=== PATIENT | female | born 1985 | race Caucasian/White ===

== ENCOUNTER → 2016-10-30 | Outpatient (CLI) | payer OTHER ==
[~2016-10-30] MED LIST: ACET-1138 PO; CALC-578 PO; CITA10TA8 PO; CLIN300C2 PO; CYAN100020 PO; DOCU100C PO; FERR1TAB13 PO
[2016-10-30 10:48] LABS: ALKALINE PHOSPHATASE 113 U/L (45-117); ALT/SGPT 43 U/L (12-78); AST/SGOT 22 U/L (15-37)
== END | disposition home or self-care (01) ==
LOC: C.LAB 09:49
PROVIDERS: ATTEND Surgery Plastic and Reconstructive Surgery
DX: K76.0 Fatty (change of) liver, not elsewhere classified (principal)

== ENCOUNTER 2016-11-11 18:37 | Emergency (ER) | payer OTHER ==
[~2016-11-11] VITALS: Ht 160 cm; Wt 75.7 kg
[~2016-11-11 18:37] MED LIST changes: -ACET-1138 PO; -CLIN300C2 PO; -DOCU100C PO
[2016-11-11 18:40] VITALS: TEMP 36.6; Ht 160 cm; Wt 75.7 kg
[2016-11-11] MEDS ORDERED: ACET-1138 PO (19:18)
[2016-11-11] MEDS ORDERED: CLIN300C2 PO (19:20)
[2016-11-11 19:27] LABS: MANUAL MICROSCOPIC REQUIRED? NO; REVIEW REQ? NO; URINE APPEARANCE CLEAR (CLEAR); URINE BILIRUBIN NEG (NEG); URINE COLOR YELLOW; URINE NITRITE NEG (NEG); URINE PH 6.5 (4.5-7.5); URINE SPECIFIC GRAVITY 1.005 (1.000-1.030); UROBILINOGEN NEG (NEG)
--- NOTE | 2016-11-11 19:31 | EMERGENCY ROOM VISIT NOTE ---
History Report prepared by Marline: Keith Munoz Under the Supervision of: Dr. Wyatt Hawk M.D. First contact with patient: 18:46 Chief Complaint: SWELLING TO EXTREMITY Stated Complaint: POST SURGERY SWELLING; CHECK FOR BLOOD CLOTS History of Present Illness The patient is a 31 year old female who presents to the Emergency Room with complaints of constant swelling to her legs starting earlier today. The patient states that she had skin removal surgery on her stomach on the , and four days ago she had her drainage tubes taken out, and it was still draining until today. The patient additionally states that she is having a headache, hand numbness, cold hands, nausea, and urinary frequency. The patient denies any use of control or history of blood clots, though she states that her uncle had blood clots. She additionally states that the odor from her incision has been persistent since the surgery. The patient states that she is currently on clindamycin, and she took some today. The patient denies any redness of her legs , and she states that she is currently wearing compression socks due to the swelling. She states that she has been on her feet a lot recently. Source of History: patient Onset: earlier today Position: leg (bilateral) Quality: other (swelling) Timing: constant Associated Symptoms: + headache, + urinary symptoms Note: Associated symptoms: hand numbness and cold hands Review of Systems See HPI for pertinent positives & negatives. A total of 10 systems reviewed and were otherwise negative. Past Medical & Surgical Medical Problems: (1) Acute urticaria (2) Acute urticaria (3) Anemia (4) Asthma (5) Breech presentation (6) Bronchitis (7) Corneal abrasion, right (8) Delivery by elective caesarean section (9) Pneumonia (10) term (11) Urinary tract infection Surgical Problems: (1) History of delivery (2) History of gastric bypass (3) S/P appendectomy (4) [place] teeth removed Family History FH: heart disease Hypertension Kidney disease Kidney stones Social History Smoking Status: Former Smoker Alcohol Use: occasionally Drug Use: none Marital Status: Housing Status: lives with family Occupation Status: employed Current/Historical Medications Scheduled Clindamycin Hcl (Cleocin), 300 MG PO UD Scheduled PRN Acetaminophen (Tylenol Extra Strength), 1,000-1,500 MG PO UD PRN for Pain Docusate Sodium (Stool Softener), 100 MG PO BID PRN for Constipation Allergies Coded Allergies: Azithromycin (Verified Allergy, Intermediate, itching, hives, 12/19/15) NSAIDs (Verified Allergy, Unknown, HAD GASTRIC BYPASS, 12/19/15) Penicillins (Unverified Allergy, Unknown, RASH , 12/19/15) Physical Exam Vital Signs Date Time Temp Pulse Resp B/P (MAP) Pulse Ox O2 Delivery O2 Flow Rate FiO2 11/11/16 20:56 72 16 112/58 100 Room Air 11/11/16 18:40 36.6 81 16 124/70 100 Room Air Physical Exam GENERAL: Patient is in no acute distress. HEENT: No acute trauma, normocephalic atraumatic, mucous membranes moist, no nasal congestion, no scleral icterus. NECK: No stridor, no adenopathy, no meningismus, trachea is midline. LUNGS: Clear to auscultation bilaterally, no wheeze, no rhonchi, breath sounds equal. HEART: Without murmurs gallops or rubs, regular rate and rhythm. ABDOMEN: Large C-shaped incision along the lower pelvis that extends across the entire pelvis. Mild erythema to the wound edges. No cellulitis. No drainage. Foul odor is noted. Soft, nontender, no peritonitis. EXTREMITIES: Moderate bilateral pedal edema. No cyanosis, full range of motion of all the joints without pain or difficulty, no signs for acute trauma. NEUROLOGIC: Oriented x 3, no acute motor or sensory deficits, no focal weakness. SKIN: No rash, no jaundice, no diaphoresis. Medical Decision & Procedures ER Provider Diagnostic Interpretation: Radiology results as stated below per my review and radiologist interpretation: BILATERAL LOWER EXTREMITY VENOUS DOPPLER HISTORY: Acute bilateral lower extremity pain and swelling swelling COMPARISON STUDY: Duplex venous ultrasound 11/01/2007. FINDINGS: There is normal compressibility, flow, and augmentation within the bilateral lower extremity deep venous systems. IMPRESSION: No sonographic evidence of deep venous thrombosis within the right or left lower extremity. Electronically signed by: John Murry M.D. 11/11/2016 8:28 PM Dictated Date/Time: 11/11/2016 8:27 PM Laboratory Results 11/11/16 19:40 Red Blood Count 3.52, Mean Corpuscular Volume 85.5, Mean Corpuscular Hemoglobin 26.1, Mean Corpuscular Hemoglobin Concent 30.6, Mean Platelet Volume 7.6, Neutrophils (%) (Auto) 62.4, Lymphocytes (%) (Auto) 25.5, Monocytes (%) (Auto) 6.2, Eosinophils (%) (Auto) 5.2, Basophils (%) (Auto) 0.3, Neutrophils # (Auto) 4.55, Lymphocytes # (Auto) 1.86, Monocytes # (Auto) 0.45, Eosinophils # (Auto) 0.38, Basophils # (Auto) 0.02 11/11/16 19:40 Test 11/11/16 19:15 11/11/16 19:40 Urine Color YELLOW Urine Appearance CLEAR (CLEAR) Urine pH 6.5 (4.5-7.5) Urine Specific [place] 1.005 (1.000-1.030) Urine Protein NEG (NEG) Urine Glucose (UA) NEG (NEG) Urine Ketones NEG (NEG) Urine Occult Blood NEG (NEG) Urine Nitrite NEG (NEG) Urine Bilirubin NEG (NEG) Urine Urobilinogen NEG (NEG) Urine Leukocyte Esterase TRACE (NEG) Urine WBC (Auto) 1-5 /hpf (0-5) Urine RBC (Auto) 0-4 /hpf (0-4) Urine Hyaline Casts (Auto) 0 /lpf (0-5) Urine Epithelial Cells (Auto) 5-10 /lpf (0-5) Urine Bacteria (Auto) NEG (NEG) White Blood Count 7.29 K/uL (4.8-10.8) Red Blood Count 3.52 M/uL (4.2-5.4) Hemoglobin 9.2 g/dL (12.0-16.0) Hematocrit 30.1 % (37-47) Mean Corpuscular Volume 85.5 fL (80-100) Mean Corpuscular Hemoglobin 26.1 pg (25-34) Mean Corpuscular Hemoglobin Concent 30.6 g/dl (32-36) Platelet Count 372 K/uL (130-400) Mean Platelet Volume 7.6 fL (7.4-10.4) Neutrophils (%) (Auto) 62.4 % Lymphocytes (%) (Auto) 25.5 % Monocytes (%) (Auto) 6.2 % Eosinophils (%) (Auto) 5.2 % Basophils (%) (Auto) 0.3 % Neutrophils # (Auto) 4.55 K/uL (1.4-6.5) Lymphocytes # (Auto) 1.86 K/uL (1.2-3.4) Monocytes # (Auto) 0.45 K/uL (0.11-0.59) Eosinophils # (Auto) 0.38 K/uL (0-0.5) Basophils # (Auto) 0.02 K/uL (0-0.2) RDW Standard Deviation 58.0 fL (36.4-46.3) RDW Coefficient of Variation 18.6 % (11.5-14.5) Immature Granulocyte % (Auto) 0.4 % Immature Granulocyte # (Auto) 0.03 K/uL (0.00-0.02) Red Blood Cell Morphology Unremarkable Anion Gap 6.0 mmol/L (3-11) Est Creatinine Clear Calc Drug Dose 98.6 ml/min Estimated GFR () 112.1 Estimated GFR (Non- 96.7 BUN/Creatinine Ratio 16.5 (10-20) Lactic Acid Level 0.8 mmol/L (0.4-2.0) Calcium Level 8.6 mg/dl (8.5-10.1) Magnesium Level 2.4 mg/dl (1.8-2.4) Total Bilirubin 0.2 mg/dl (0.2-1) Aspartate Amino Transf (AST/SGOT) 30 U/L (15-37) Alanine Aminotransferase (ALT/SGPT) 45 U/L (12-78) Alkaline Phosphatase 138 U/L (45-117) Total Protein 6.5 gm/dl (6.4-8.2) Albumin 3.2 gm/dl (3.4-5.0) Globulin 3.3 gm/dl (2.5-4.0) Albumin/Globulin Ratio 1.0 (0.9-2) Thyroid Stimulating Hormone (TSH) 2.460 uIu/ml (0.300-4.500) Laboratory results reviewed by me. ED Course 1845: The patient was evaluated in room C12. A complete history and physical exam was performed. 2057: Reevaluated the patient. Discussed results and discharge instructions: She verbalized understanding and agreement. The patient is ready for discharge. Medical Decision Differential Diagnoses include: edema, wound infection, UTI, renal failure, electrolyte imbalance, DVT, venous insufficiency, anemia, and thyroid disorder. There is no leukocytosis. The patient is anemic but this is baseline looking back at previous values, the hemoglobin is actually improved today. No significant electrolyte abnormality, kidney failure or hepatitis. The patient appears to be in a euthyroid state. Lactic acid level is not elevated making severe sepsis or severe infection less likely. Urinalysis does not show infection. Bilateral lower extremity ultrasound does not show evidence for DVT. The patient presents with some extremity numbness and tingling, she has lower extremity edema. She is recovering from an abdominal surgery where she had a large area of extra skin removed. She has seen her plastic surgeon recently and they were happy with the wound. Her drains were recently removed. She has had an odor to the incision since the operation, she states that her surgical group was not concerned about the smell. On exam, the wound does not appear to be infected. There is no cellulitis, no significant drainage. The patient looks well, she is not toxic or febrile. The lower extremity edema is likely from the recent surgery, some venous insufficiency, the fact that she's been less active lately. She was reassured. She is being discharged with follow-up through her surgical group. Medication Reconcilliation Current Medication List: was personally reviewed by me Blood Pressure Screening Patient's blood pressure: Normal blood pressure Impression Primary Impression: Pedal edema Additional Impression: healing abdominal surgical incision Scribe Attestation The scribe's documentation has been prepared under my direction and personally reviewed by me in its entirety. I confirm that the note above accurately reflects all work, treatment, procedures, and medical decision making performed by me. Departure Information Dispostion Home / Self-Care Referrals No Doctor, Assigned (PCP) Forms HOME CARE DOCUMENTATION FORM, IMPORTANT VISIT INFORMATION Patient Instructions My [facility] Additional Instructions try and keep the legs elevated wear the stockings to help the swelling talk with your surgeon tomorrow return if worsening lab testing today was ok no clots by ultrasound today Problem Qualifiers
[2016-11-11 19:58] LABS: HEMATOCRIT 30.1 % (37-47); MEAN CELL VOLUME 85.5 fL (80-100); MEAN CORPUSCULAR HEMOGLOBIN 26.1 pg (25-34); MEAN CORPUSCULAR HGB CONC 30.6 g/dl (32-36); MEAN PLATELET VOLUME 7.6 fL (7.4-10.4); PLATELET COUNT 372 K/uL (130-400); RED BLOOD COUNT 3.52 M/uL (4.2-5.4); WHITE BLOOD COUNT 7.29 K/uL (4.8-10.8)
[2016-11-11 20:15] LABS: BUN/CREATININE RATIO 16.5 (10-20); CALCIUM 8.6 mg/dl (8.5-10.1); CREATININE 0.82 mg/dl (0.60-1.20); MAGNESIUM 2.4 mg/dl (1.8-2.4)
[2016-11-11 20:26] LABS: THYROID STIMULATING HORMONE 2.46 uIu/ml (0.300-4.500)
[2016-11-11 20:27] LABS: BASO % 0.3 %; BASO ABS # 0.02 K/uL (0-0.2); COMPLETE YES; EOS % 5.2 %; IG% 0.4 %; LYMPH % 25.5 %; LYMPH ABS # 1.86 K/uL (1.2-3.4); MONO % 6.2 %; NEUT % 62.4 %
--- NOTE | 2016-11-11 20:30 | DIAGNOSTIC IMAGING REPORT ---
BILATERAL LOWER EXTREMITY VENOUS DOPPLER HISTORY: Acute bilateral lower extremity pain and swelling swelling COMPARISON STUDY: Duplex venous ultrasound 11/01/2007. FINDINGS: There is normal compressibility, flow, and augmentation within the bilateral lower extremity deep venous systems. IMPRESSION: No sonographic evidence of deep venous thrombosis within the right or left lower extremity. Electronically signed by: John Murry M.D. 11/11/2016 8:28 PM Dictated Date/Time: 11/11/2016 8:27 PM
[2016-11-11 20:56] VITALS: BP 112/58; PULSE 72; O2SAT 100
[2016-11-11] MEDS ORDERED: DOCU100C PO (23:45)
== END 2016-11-11 21:19 | disposition home or self-care (01) ==
LOC: C.EDB 18:39 → C.EDC 21:19
DX: R60.9 Edema, unspecified (principal); Z98.890 Other specified postprocedural states; D64.9 Anemia, unspecified; J45.909 Unspecified asthma, uncomplicated; Z87.440 Personal history of urinary (tract) infections; Z98.84 Bariatric surgery status; Z87.891 Personal history of nicotine dependence; Z88.0 Allergy status to penicillin; Z88.3 Allergy status to other anti-infective agents; Z88.8 Allergy status to other drugs, medicaments and biological substances; Z82.49 Family history of ischemic heart disease and other diseases of the circulatory system; Z84.1 Family history of disorders of kidney and ureter

== ENCOUNTER → 2016-12-20 | Outpatient (CLI) | payer OTHER ==
[~2016-12-20] MED LIST changes: +ACET-1138 PO; -CALC-578 PO; -CITA10TA8 PO; +CLIN300C2 PO; -CYAN100020 PO; +DOCU100C PO; -FERR1TAB13 PO
[2016-12-20 13:08] LABS: BASO % 0.2 %; BASO ABS # 0.01 K/uL (0-0.2); COMPLETE YES; EOS % 2.5 %; IG% 0.2 %; LYMPH % 30.3 %; LYMPH ABS # 1.56 K/uL (1.2-3.4); MEAN CELL VOLUME 76.7 fL (80-100); MEAN CORPUSCULAR HGB CONC 31.3 g/dl (32-36); MEAN PLATELET VOLUME 8.3 fL (7.4-10.4); MONO % 9.1 %; NEUT % 57.7 %; PLATELET COUNT 260 K/uL (130-400); RED BLOOD COUNT 4.17 M/uL (4.2-5.4); WHITE BLOOD COUNT 5.15 K/uL (4.8-10.8)
[2016-12-20 13:41] LABS: FERRITIN 4.8 ng/ml (8.0-388.0)
== END | disposition home or self-care (01) ==
LOC: C.LAB 12:26
PROVIDERS: ATTEND Internal Medicine Hematology
DX: D50.0 Iron deficiency anemia secondary to blood loss (chronic) (principal)

== ENCOUNTER 2017-01-18 18:15 | Emergency (ER) | payer OTHER ==
[~2017-01-18] VITALS: Ht 160 cm; Wt 72.0 kg
[2017-01-18 18:19] VITALS: TEMP 36.9; Ht 160 cm; Wt 72.0 kg
[2017-01-18] MEDS ORDERED: MULT-506 PO (18:28)
[2017-01-18] MEDS ORDERED: FERR1TAB13 PO (18:28)
--- NOTE | 2017-01-18 18:46 | EMERGENCY ROOM VISIT NOTE ---
History Report prepared by Marline: Gordo Dixon Under the Supervision of: Dr. Ede Clarke M.D. First contact with patient: 18:32 Chief Complaint: ED VAG BLEEDING Stated Complaint: ANEMIA,HEAVY MENSTRUAL BLEEDING,PREV ABLASION,DIZZ History of Present Illness The patient is a 31 year old female who presents to the Emergency Room with complaints of intermittent vaginal bleeding that started a month ago. The patient states that she has been changing her super plus tampon and pad every hour. She reports that she had an ablation done about a month ago for her vaginal bleeding, but admits that she is still clotting. The patient admits that she has a history of anemia, which she has an IV of iron for. She states that she had four treatments last week with her last iron count at 4 g. The patient states she has still been experiencing her symptoms. The patient states that she knows her iron is low because she has been experiencing general weakness, leg and arm pain, lightheadedness, nausea, and a headache behind her eyes. She admits that she has been experiencing abnormal bleeding since she was a teenager. The patient admits that she had skin removal surgery on her abdomen a month ago due to her gastric bypass surgery 2 years ago at [facility]. She states that her HARP REGULATOR is Dr. Palma of [facility]. She denies control or estrogens. Source of History: patient Onset: a month ago Position: other (vaginal) Quality: other (bleeding) Timing: intermittent Associated Symptoms: + headache, + nausea, + weakness Review of Systems All systems have been listed, reviewed, and are negative other than those previously mentioned. Please see Additional Medical History Sheet. Past Medical & Surgical Medical Problems: (1) Acute urticaria (2) Acute urticaria (3) Anemia (4) Asthma (5) Breech presentation (6) Bronchitis (7) Corneal abrasion, right (8) Delivery by elective caesarean section (9) Pneumonia (10) term (11) Urinary tract infection Surgical Problems: (1) History of delivery (2) History of gastric bypass (3) S/P appendectomy (4) [place] teeth removed Family History FH: heart disease Hypertension Kidney disease Kidney stones Social History Smoking Status: Current Every Day Smoker Alcohol Use: occasionally Drug Use: none Marital Status: Housing Status: lives with family Occupation Status: employed Current/Historical Medications Scheduled Ferrous Sulfate (Kp Ferrous Sulfate), 325 MG PO BID Multivitamin (Multivitamin), 1 TAB PO DAILY Allergies Coded Allergies: Azithromycin (Verified Allergy, Intermediate, itching, hives, 01/18/17) NSAIDs (Verified Allergy, Unknown, HAD GASTRIC BYPASS, 01/18/17) Penicillins (Unverified Allergy, Unknown, RASH , 01/18/17) Physical Exam Vital Signs Date Time Temp Pulse Resp B/P (MAP) Pulse Ox O2 Delivery O2 Flow Rate FiO2 01/18/17 20:05 77 16 121/76 98 01/18/17 19:31 77 16 121/76 98 Room Air 01/18/17 19:29 78 16 119/58 98 Room Air 85 125/71 77 121/76 01/18/17 18:19 36.9 97 18 138/80 100 Room Air Physical Exam GENERAL: Patient awake, alert, oriented x 3. Patient follows commands. Patient does not appear toxic. Patient is adequately hydrated and well- nourished. SKIN: No erythema, pallor, cyanosis or rash. Healing scars in both inguinal areas from a recent skin excisions. HEENT: Normal head, pupils equal, reactive to light and accommodation. LUNGS: Clear to auscultation. No wheezes, no rales, no rhonchi. HEART: No murmurs. No gallops. No rubs ABDOMEN: No masses, no rebound, no hepatomegaly or splenomegaly. EXTREMITIES: No signs of trauma. No pedal or pretibial edema. No calf or thigh tenderness. NEUROLOGIC: Cranial nerves II-XII within normal limits. No gross motor sensory function deficits. just head and eyes. Medical Decision & Procedures Laboratory Results 01/18/17 18:48 01/18/17 18:48 Test 01/18/17 18:48 Red Blood Count 4.63 M/uL (4.2-5.4) Mean Corpuscular Volume 82.1 fL (80-100) Mean Corpuscular Hemoglobin 25.7 pg (25-34) Mean Corpuscular Hemoglobin Concent 31.3 g/dl (32-36) RDW Standard Deviation 59.1 fL (36.4-46.3) RDW Coefficient of Variation 19.7 % (11.5-14.5) Mean Platelet Volume 8.4 fL (7.4-10.4) Anion Gap 6.0 mmol/L (3-11) Est Creatinine Clear Calc Drug Dose 87.7 ml/min Estimated GFR () 100.1 Estimated GFR (Non- 86.4 BUN/Creatinine Ratio 15.5 (10-20) Calcium Level 8.7 mg/dl (8.5-10.1) Laboratory results as stated above per my review. ED Course 183: Past medical records reviewed. The patient was evaluated in room A12B. A complete history and physical examination was performed. 194: Upon reevaluation, the patient is resting comfortably. I discussed today' s findings with the patient. She verbalized agreement of the treatment plan. The patient was discharged home. Medical Decision Nurses notes reviewed. Medical history sheet reviewed. Differential diagnosis includes but is not limited to: anemia, recurrent vaginal bleeding, and iron deficiency. 31-year-old female with excessive vaginal bleeding post-ablation now returns feeling somewhat lightheaded. The patient believes that she is more anemic. The patient is post-gastric bypass. She is followed by gynecology. The patient also complains occasionally of night sweats. She has no cough. She has no fever or chills. Labs were evaluated. The patient's hemoglobin is now 11.9 which is much higher than it has been. She is not orthostatic. The patient does not appear ill. I did not perform another pelvic exam as this will need to be repeated by gynecology. She is currently not bleeding. I believe the patient is safe to return home but she will need to follow back with gynecology and her family physician. Medication Reconcilliation Current Medication List: was personally reviewed by me Blood Pressure Screening Patient's blood pressure: Normal blood pressure Impression Primary Impression: Menometrorrhagia Additional Impression: Anemia Scribe Attestation The scribe's documentation has been prepared under my direction and personally reviewed by me in its entirety. I confirm that the note above accurately reflects all work, treatment, procedures, and medical decision making performed by me. Departure Information Dispostion Home / Self-Care Referrals Ladonna Barone PA-C (PCP) Forms HOME CARE DOCUMENTATION FORM, IMPORTANT VISIT INFORMATION, WORK / SCHOOL INSTRUCTIONS Patient Instructions My [facility] Additional Instructions Follow-up with your microfabrication engineer manager and family physician within the next 7 days. Drink extra fluids. Problem Qualifiers
[2017-01-18 18:56] LABS: MEAN CELL VOLUME 82.1 fL (80-100); MEAN CORPUSCULAR HEMOGLOBIN 25.7 pg (25-34); MEAN CORPUSCULAR HGB CONC 31.3 g/dl (32-36); MEAN PLATELET VOLUME 8.4 fL (7.4-10.4); PLATELET COUNT 264 K/uL (130-400); RED BLOOD COUNT 4.63 M/uL (4.2-5.4); WHITE BLOOD COUNT 5.54 K/uL (4.8-10.8)
[2017-01-18 19:18] LABS: BUN/CREATININE RATIO 15.5 (10-20); CALCIUM 8.7 mg/dl (8.5-10.1); CREATININE 0.9 mg/dl (0.60-1.20); POTASSIUM 3.8 mmol/L (3.5-5.1)
[2017-01-18 20:05] VITALS: BP 121/76; PULSE 77; O2SAT 98
== END 2017-01-18 20:05 | disposition home or self-care (01) ==
LOC: C.EDB 18:16 → C.EDA 20:05
DX: N92.1 Excessive and frequent menstruation with irregular cycle (principal); D50.9 Iron deficiency anemia, unspecified; Z98.890 Other specified postprocedural states; J45.909 Unspecified asthma, uncomplicated; F17.200 Nicotine dependence, unspecified, uncomplicated; Z82.49 Family history of ischemic heart disease and other diseases of the circulatory system; Z84.1 Family history of disorders of kidney and ureter

== ENCOUNTER 2019-10-25 07:48 | Observation (INO) ==
--- NOTE | 2019-09-27 09:59 | PAT Medication Instructions ---
Medication Instructions Date of Service September 27, 2019 Home Medications fluvoxamine 25 mg PO QAM risperidone [Risperdal] 1 mg PO BID PRN Take morning of surgery With a small sip of water, OTHERWISE NOTHING TO EAT OR DRINK AFTER MIDNIGHT: fluvoxamine 25 mg PO QAM risperidone [Risperdal] 1 mg PO BID PRN (if needed) Take evening before surgery risperidone [Risperdal] 1 mg PO BID PRN (if needed) Other Notes If you have any questions please call us at [phone] or [phone] or [phone] or [phone]
--- NOTE | 2019-09-27 10:09 | Anesthesiology Consultation ---
Date of Service September 27, 2019 Assessment & Plan (1) Encounter for pre-operative examination: Chart Review Chart Review: Acceptable Risk for Surgery (pending preop Covid testing) and Patient seen in Pre Admission Testing - Check test AM DOS Per PAT appt on 09/27/19, no recent travel. Resides in [facility]. Uses PPE. Educated patient to follow up with surgeon's office regarding Covid testing. Educated on importance of self quarantining, social distancing and wearing mask in public both for the patient and household contacts. Teaching & Discussion Pre-Anesthesia Teaching/Discussion Notes: Instructed NPO after midnight before surgery,except medications with 15 cc of water. Medication instructions provided according to the PAT guidelines. History Surgery Operation Date: 10/25/19 07:30 Proposed Procedures p Robotic Total Laparoscopic Hysterectomy - Misty Fields MD, FACOG Height/Weight Height: 5 ft 3 in Weight: 91.9 kg Allergies Allergy/AdvReac Type Severity Reaction Status Date / Time azithromycin Allergy Intermediate Hives Verified 09/27/19 08:41 [place] NSAIDS (Non-Steroidal Allergy Unknown HAD Verified 09/27/19 08:41 Anti-Inflamma GASTRIC BYPASS Penicillins Allergy Unknown RASH Unverified 09/27/19 08:41 Medications Home Medications Medication Instructions Recorded Confirmed Last Taken fluvoxamine 25 mg PO QAM 09/27/19 09/27/19 Unknown risperidone [Risperdal] 1 mg PO BID PRN 09/27/19 09/27/19 Unknown Past Medical History Medical History (Updated 09/27/19 @ 10:04 by Piper Whaley PA-C) Anemia iron transfusion weekly - follows with heme with routinely Asthma mild GERD (gastroesophageal reflux disease) Well controlled and stable Exercise / Class Metabolic Activity II 4-5 Yardwork/Stairs/Walk up hill (one flight of stairs - no chest pain or SOB) Past Surgical History Surgical History (Updated 09/27/19 @ 10:22 by Piper Whaley PA-C) History of abdominoplasty History of delivery History of gastric bypass Hx of colonoscopy pre cancer polyp and screen every 3 years S/P appendectomy [place] teeth removed Past Anesthesia History No Hx of Anesthesia Complications (with exception to one episode of slow to wake after gastric bypass- just groggy - no reintubation or ICU ) and No Family Hx of Anesthesia Complications (brother has mild issues - unsure of specifics but no life threatening/serious issues ) History of PONV No Hx of Motion Sickness and History of PONV (one episode of vomiting post op Day 1 from gastric bypass- otherwise no issues ) Social History Smoking Status: Current every day smoker tobacco type: cigarettes Smoking cigarettes per day: 3 cig day Do You Dip or Chew Tobacco: No Hx Alcohol Use: Yes alcohol intake frequency: holidays/special occasions only Hx Substance Use: No substance use type: does not use Review of Systems Occ snoring- no hx of sleep study. Patient denies chest pain, shortness of breath, dyspnea on exertion, cough, wheezing, palpitations. No hx of seizures, stroke, [place]. No hx of blood clots. Physical Exam Vital Signs VITALS BP 127/90 P 74 TEMP 97.5 SP02 100% RESP 16 Constitutional no acute distress ENMT Mouth: no TMJ clicking Thyromental Distance: > or= 3.5 Finger Breadths (3.5) Mallampati Class: II No missing teeth. No caps or crowns. Neck neck extension not limited Respiratory normal respiratory effort; no respiratory distress Auscultation: lungs clear to auscultation bilaterally; no wheezes Cardiovascular Rate/Rhythm: regular rate and regular rhythm Heart Sounds: no murmur Vessels: no carotid bruit Musculoskeletal Spine: no pain with cervical ROM Neurologic moves all extremities Psychiatric Orientation: alert Testing Laboratory Results 09/27/19 10:20 09/27/19 10:20 Blood Type O Positive 09/27/19 10:20 Antibody Screen NEGATIVE 09/27/19 10:20 Anemia stable from 09/08/19 (Hgb 9.3 and Hct 30.7 at that time)
[2019-09-27 11:19] LABS: Basophils # (auto) 0.02 K/uL (0-0.2); Basophils % (auto) 0.3 %; Eosinophils # (auto) 0.18 K/uL (0-0.5); Eosinophils % (auto) 2.7 %; Hemoglobin 9.7 g/dL (12.0-16.0); Immature Granulocytes # (auto) 0.02 K/uL (0.00-0.02); Immature Granulocytes % (auto) 0.3 %; Lymphocytes # (auto) 1.34 K/uL (1.2-3.4); Lymphocytes % (auto) 19.8 %; Mean Corpuscular Hemoglobin 21.7 pg (25-34); Mean Corpuscular Hgb Conc 29.4 g/dL (32-36); Mean Platelet Volume 8.5 fL (7.4-10.4); Monocytes # (auto) 0.56 K/uL (0.11-0.59); Monocytes % (auto) 8.3 %; Neutrophils # (auto) 4.64 K/uL (1.4-6.5); Neutrophils % (auto) 68.6 %; Platelet Count 319 K/uL (130-400); RDW Coefficient of Variation 19.4 % (11.5-14.5); RDW Standard Deviation 49.9 fL (36.4-46.3); Red Blood Count 4.46 M/uL (4.2-5.4); White Blood Count 6.76 K/uL (4.8-10.8)
[2019-09-27 11:25] LABS: BUN Creatinine Ratio 13.9 (10-20); Calcium 8.4 mg/dl (8.5-10.1); Creatinine Clr Calc Pharmacy 119.1 ml/min; Est GFR (African American) 126.3; Potassium 4.4 mmol/L (3.5-5.1)
[2019-09-27 11:41] LABS: Hypochromasia Present; Microcytosis Present
[~2019-10-25 07:48] MED LIST changes: -ACET-1138 PO; +CEFAZOLIN 2000MG 2,000 MG/15 ML SYR IV SCH; -CLIN300C2 PO; -DOCU100C PO; +LACTATED RINGER'S 1,000 ML IV SCH; +LR 15ML/HR IV SCH
[2019-10-25] MEDS ORDERED: fentaNYL citrate 100 MCG/2 ML VIAL ONE ×3 (08:48→11:43)
[2019-10-25] MEDS ORDERED: NEOSTIGMINE METHYLSULFATE 5 MG/5 ML SYR ONE (08:48)
[2019-10-25] MEDS ORDERED: MIDAZOLAM HCL 1 MG/ML 2ML VIAL ONE (08:48)
[2019-10-25] MEDS ORDERED: PROPOFOL IV EMULSION 10 MG/ML 20 ML VIAL IV ONE (08:48)
[2019-10-25] MEDS ORDERED: DEXAMETHASONE SOD INJ 4 MG/ML VIAL ONE (08:48)
[2019-10-25] MEDS ORDERED: GLYCOPYRROLATE 0.2 MG/ML VIAL ONE (08:48)
[2019-10-25] MEDS ORDERED: ONDANSETRON INJ 2 MG/ML 2 ML VIAL ONE (08:48)
[2019-10-25] MEDS ORDERED: LIDOCAINE HCL 2% 2 ML VIAL/AMP(20MG/ML) INFIL ONE (08:48)
[2019-10-25 08:54] LABS: Pregnancy Test, Serum Negative (Negative)
--- NOTE | 2019-10-25 09:14 | History & Physical Bridge Note ---
Date of Service October 25, 2019 History & Physical Bridge Note I have examined the patient, reviewed the History & Physical and in the interval since the performance of the History & Physical I have noted the following changes of clinical significance: no changes noted
[2019-10-25] MEDS ORDERED: PROMETHAZINE HCL 12.5 MG in SODIUM CHLORIDE 0.9% 50 ML IV PRN ×2 (09:36→13:13)
[2019-10-25] MEDS ORDERED: fentaNYL citrate 100 MCG/2 ML VIAL IV PRN (09:36)
[2019-10-25] MEDS ORDERED: ATROPINE SULFATE 0.1 MG/ML 10ML SYR IV PRN (09:36)
[2019-10-25] MEDS ORDERED: NALOXONE HCL 0.4 MG/1 ML VIAL/CARP IV PRN (09:36)
[2019-10-25] MEDS ORDERED: FLUMAZENIL 0.1 MG/1 ML 10 ML VIAL IV PRN (09:36)
[2019-10-25] MEDS ORDERED: ONDANSETRON INJ 2 MG/ML 2 ML VIAL IV PRN ×2 (09:36→13:13)
[2019-10-25] MEDS ORDERED: ePHEDrine sulfate 50 MG/ML AMP IV PRN (09:36)
[2019-10-25] MEDS ORDERED: LABETALOL HCL IV 5 MG/ML 20ML IV PRN (09:36)
[2019-10-25] MEDS ORDERED: BUPIVACAINE 0.5 % 5 MG/1 ML MPF 30ML VIAL ONE (09:46)
[2019-10-25] MEDS ORDERED: METHYLENE BLUE 0.5% 10 ML VIAL ONE (09:46)
[2019-10-25] MEDS ORDERED: ROCURONIUM BROMIDE 10 MG/ML 5 ML VIAL IV ONE (10:49)
[2019-10-25] MEDS ORDERED: TISSEEL FIBRIN SEALANT 4ML TOP ONE (11:49)
--- NOTE | 2019-10-25 12:02 | Operative Report ---
PG Post Operative Report Pre & Post Diagnosis Operation Date: 10/25/19 09:50 Pre-Op Diagnosis: Menorrhagia, Anemia Post-Op Diagnosis: Menorrhagia, Anemia I identified the patient and participated in the time-out.: Yes Procedure Operation Date: 10/25/19 09:50 Actual Procedures p Robotic Assisted Total Laparoscopic Hysterectomy Bilateral Salpingectomy and Cystoscopy(Not Applicable) - Misty Fields MD, FACOG Surgeon Misty Fields MD, FACOG Trailer Technician . Estimated Blood Loss 10 Findings Consistent with Post-Op Diagnosis Specimens uterus, tubes, cx Description of Procedure Patient was given a general anesthetic, prepped and draped in dorsal lithotomy position in yellow fin arabella stirrups. Care was taken to position the legs and arms properly with no excess pressure on any area. Pre-operative antibiotics were given and SCDs applied earlier. Umrdock catheter was inserted into her bladder, V-Care manipluator was placed in the uterus and sutured in place. Gloves were changed and then a supra-umbilical incision was made with scalpel, using Cathie technique, we dissected through the subcutaneous fat, fascia, split the rectus muscles and then entered the peritoneal cavity.. Blunt tip Cathie Trochar then inserted and balloon inflated to stabilize the port. CO2 gas was then used to insufflate the peritoneal cavity. Findings.Minimal adhesive disease From the anterior abdomen to omentum previous section some minimal adhesive disease between the bladder and cervix Deep tendelenberg position was obtained. 2 robotic ports were then placed, one on the left, one on the right side under direct visualization. 11mm bladeless accessory port placed in left upper quadrant under direct visualization. Robot docked. Arm #1 Monopolar martha, arm #2 Bipolar [place] grasper. Fallopian tubes were identified and removed with the monoplar martha and removed thru the accessory port. Ureter was identified on each side and followed a normal course. Distal to the left ovary, the blood supply was coagulated with the bipolar [place] and then cut with Martha. We were well away from the ureter. Round ligament was coagulated and then cut. Uterine vessels were then skeletonized, bladder flap was sharply dissected away with martha. Uterine vessels were then coagulated close to the cervix staying away from the left ureter. Vessels then cut. The exact same process was repeated on the right side taking note of the location of the right ureter at all times. Colpotomy was then performed with the monopolar martha, once completed, the specimen was removed through the vagina. A sponge in a glove was then placed in the vagina to maintain pneumoperitoneum. Instrument exchange then occurred. Arm #1 became the LUIZ needle construction driver, Arm # 2 became the Cobra Grasper. 12 inch 2-0 V-Lock 90 day suture was placed through the accessory port. Cuff was closed from left to right, then back taking at least 1cm full thickness bites of vaginal mucosa. Suture was cut so there was no tail, needle removed through the accessory port. Sponge removed from the vagina and seal air tight. Generous irrigation and suction, hemostasis excellent, Tisseal applied to pedicles. Cystoscopy performed and no injury to the bladder, no sutures noted, good strong jets of urine were noted from both right and left ureter openings. Cystoscope removed and a new murdock catheter placed. Robot undocked, instruments, ports removed. gas allowed to escape. Incisions injected with Marcaine, fascia closed in the umbilical and a deep stitch into the accessory port with 0-Vicryl. 4-0 subcuticular skin closures on all incisions, dermabond apllied. Sponge and instrument counts correct. I attest to the content of the Intraoperative Record and any orders documented therein. Any exceptions are noted below.
[2019-10-25] MEDS ORDERED: MEPERIDINE HCL 25 MG/ML CARP/VIAL IV PRN (12:07)
[2019-10-25] MEDS ORDERED: MEPERIDINE HCL 25 MG/ML CARP/VIAL ONE (12:10)
--- NOTE | 2019-10-25 12:38 | Anesthesiology Progress Note ---
Date of Service October 25, 2019 Anesthesia Post Procedure Vital Signs Vital Signs: Temp Pulse Pulse Resp BP Pulse Ox 10/25/19 12:35 71 14 126/65 100 10/25/19 12:25 68 16 127/66 100 10/25/19 12:15 73 12 132/72 100 10/25/19 12:07 36.8 C 80 19 130/63 100 10/25/19 08:34 36.8 C 71 16 107/64 100 Pain Intensity Abdomen: Pain Intensity: 0 Transfer of Care Handoff Completed per policy Notes Mental Status: alert / awake / arousable Patient Amnestic to Procedure: Yes Nausea / Vomiting: adequately controlled Pain: adequately controlled Airway Patency, RR, SpO2: stable & adequate BP & HR: stable & adequate Hydration State: stable & adequate Anesthetic Complications: no major complications apparent
[2019-10-25] MEDS ORDERED: SIMETHICONE 80 MG CHEW PO PRN (13:13)
[2019-10-25] MEDS ORDERED: DICYCLOMINE HCL 20 MG TAB PO PRN (13:13)
[2019-10-25] MEDS ORDERED: LACTATED RINGER'S 1,000 ML IV SCH (13:13)
[2019-10-25] MEDS ORDERED: bisacodyL 10 MG SUPP PR PRN (13:13)
[2019-10-25] MEDS ORDERED: MEPERIDINE HCL 50 MG/ML CARP IV PRN (13:13)
[2019-10-25] MEDS ORDERED: risperiDONE 1 MG TABLET PO PRN (13:13)
[2019-10-25] MEDS ORDERED: ACETAMINOPHEN 325 MG TAB PO PRN (13:13)
[2019-10-25] MEDS ORDERED: IBUPROFEN 600 MG TAB PO PRN (13:13)
[2019-10-25] MEDS ORDERED: MAGNESIUM HYDROXIDE SUSP 30 ML UDC PO PRN (13:13)
[2019-10-25] MEDS ORDERED: OXYCODONE/ACETAMINOPHEN 5mg/325mg TAB PO PRN ×2 (13:13)
[2019-10-25] MEDS ORDERED: KETOROLAC 30 MG/ML VIAL IV PRN (13:13)
[2019-10-25] MEDS ORDERED: ZOLPIDEM TARTRATE 5 MG TAB PO PRN (13:13)
[2019-10-25 14:17] VITALS: PULSE 88
[2019-10-25 15:37] VITALS: BP 124/74; TEMP 98.2; O2SAT 99
[2019-10-25] MEDS ORDERED: DOCUSATE SODIUM 100 MG CAP PO SCH (21:00)
[2019-10-26] MEDS ORDERED: CITALOPRAM 20 MG TAB PO SCH (09:00)
--- NOTE | 2019-10-28 08:13 | Discharge Summary ---
Date of Service October 28, 2019 Patient had an uncomplicated TLH and met discharge criteria a few hours later Discharge Data Procedures Performed Operation Date: 10/25/19 09:50 Actual Procedures p Robotic Assisted Total Laparoscopic Hysterectomy Bilateral Salpingectomy and (Not Applicable) - Misty Fields MD, ACE s Cystoscopy(Not Applicable) - Misty Fields MD, [facility] [place] Hospital Course (1) Menorrhagia: Patient had a total laparoscopic hysterectomy on [DATE] and met criteria to go home on POD#[] At that time she was ambulating well. Tolerating an oral diet. Pain was well controlled. No extremity pain. No bleeding. Voiding well. Discharge instructions were reviewed and prescriptions for pain control were sent and discussed. Patient advised to call with any concerns and follow up discussed including limitations on activity. Coding Level of Care Code None Diagnoses Menorrhagia N92.0
== END 2019-10-25 16:31 | disposition home or self-care (01) ==
LOC: 4S2 07:48 → ASU 07:48

== ENCOUNTER 2023-05-05 11:49 | Inpatient (IN) ==
[2023-05-05 12:44] LABS: Appearance Urine Clear (Clear); Bacteria Urine Automated Negative (Negative); Bilirubin Urine Negative (Negative); Blood Urine 3+ (Negative); Color Urine Dark Yellow; Epithelial Cell Urine Auto >30 /lpf (0-5); Glucose Urine UA Negative (Negative); Ketones Urine 1+ (Negative); Leukocyte Esterase Urine Negative (Negative); Nitrite Urine Negative (Negative); Protein Urine 1+ (Negative); Specific Gravity Urine 1.029 (1.000-1.030); Urobilinogen Urine Negative (Negative); pH Urine 5.5 (4.5-7.5)
[2023-05-05] MEDS: diazePAM 5 MG/ML 10ML VIAL IV STA ×2 (12:54→14:10)
[2023-05-05 12:58] LABS: Amphetamines+Metham, Urine Neg (Neg); Barbiturates, Urine Neg (Neg); Benzodiazepine, Urine Neg (Neg); Cocaine, Urine Neg (Neg); MDMA (Ecstacy), Urine Neg (Neg); Marijuana, Urine Pos (Neg); Methadone, Urine Neg (Neg); Opiate, Urine Neg (Neg); Phencyclidine, Urine Neg (Neg)
[2023-05-05] MEDS: MULTI-VITAMIN INFUSION 10 ML, THIAMINE HCL 100 MG, FOLIC ACID 1 MG in SODIUM CHLORIDE 0... IV ONE (13:00)
--- NOTE | 2023-05-05 13:00 | CT Scan Report ---
CT SCAN OF THE CERVICAL SPINE CLINICAL HISTORY: Falls. Intoxication. COMPARISON STUDY: CT of the cervical spine dated 02/12/2018. TECHNIQUE: CT scan of the cervical spine is performed from the skull base to the upper thoracic spine . Images are reviewed in the axial, sagittal, and coronal planes. IV contrast was not administered fo r this examination. A dose lowering technique was utilized adhering to the principles of ALARA. FINDINGS: Skeletal structures: The skeletal structures are well mineralized. There is no evidence of fracture o r subluxation involving the cervical spine. Vertebral body height and alignment are maintained. The odontoid process and lateral masses are intact. The atlantoaxial articulation is preserved. The spino us processes appear intact. Intervertebral discs: The disc spaces are well maintained. Central canal: Widely patent. Soft tissues: The prevertebral and paraspinous soft tissues are within normal limits. Calvarium: The visualized calvarium at the skull base appears intact. Brain parenchyma: Partially visualized brain parenchyma at the skull base is within normal limits. Sinuses and mastoids: The visualized paranasal sinuses are clear. The mastoid air cells are well pneu matized. Lung apices: Clear as visualized. IMPRESSION: There is no evidence of cervical spine fracture or subluxation. ACT 112: Negative or not required by law. Electronically signed by: Wyatt Bonilla M.D. 05/05/2023 12:59 PM
--- NOTE | 2023-05-05 13:05 | CT Scan Report ---
CT head/brain wo con CLINICAL HISTORY: falls, etoh Technique: Contiguous axial CT images of the head were acquired from the base of the skull to the silvia caleb without intravenous contrast administration. Images were viewed in brain, subdural and bone [facility] . Automated dose lowering techniques and/or adjustment according to patient size were utilized for this exam. Comparison: Comparison is made to CT head 02/12/2018 Findings: The ventricles, basal cisterns, and cerebral sulci are normal. There is no acute intracranial hemorrh age or evidence of acute territorial infarction. Neither mass effect, shift of the midline structures , nor abnormal extra-axial fluid collections are shown. Imaged portions of the paranasal sinuses and mastoid air cells are clear. The orbits appear normal. There are no acute fractures of the calvaria or scalp swelling. Impression: No acute intracranial hemorrhage, no evidence of acute territorial infarction or other acute intracra nial disease process. ACT 112: Negative or not required by law. Electronically signed by: Steffen Lovell M.D. 05/05/2023 1:03 PM
--- NOTE | 2023-05-05 13:08 | Emergency Department Note ---
Impression & Plan Alcohol withdrawal, Suicidal ideations, Alcohol abuse, Contusion of forehead ED Provider Note Provider: Marcell Sharma MD DATE OF SERVICE: 05/05/2023 CHIEF COMPLAINT: Alcohol abuse, suicidal thoughts, possible overdose HISTORY OF PRESENT ILLNESS: Patient is a 37-year-old female history of anxiety presenting here today reporting that she is having a breakdown. Reports she is having suicidal thoughts. States is in the middle of a bad divorce and was accused of a DUI. States that for the last 2 weeks she has been heavily drinking every day including last drink several hours ago. States she is very shaky and believe she needs help both with the drinking intermittent health. States she woke up and was surrounded by pill bottle and thinks she may have overdosed. Unsure exactly when this is. Could have been trazodone or BuSpar but she is not exactly sure. States she has a history of anemia and has had some falls. States she does not have any significant head pain but does have a slight bruise to her head little bit of a history of some bloody noses. States she has some scattered bruises on her body as well but denies significant chest or abdominal pain. States she had a little bit of toast but has been eating much. Denies hallucinations at this time or wishing to harm anybody else. States she again is still having active suicidal thoughts but none wanting to be alive. Denies history of inpatient psychiatric care. Again agreeable for inpatient treatment if able. States she has not had any withdrawal seizures but thinks she may have had some bad withdrawal from alcohol before with may be some hallucinations but is unsure. Was not in the hospital for this. Evidently a friend came and took her medication when she found these empty bottles. PAST MEDICAL HISTORY: As noted above MEDICATIONS: Trazodone and BuSpar SOCIAL HISTORY: Marijuana and alcohol but denies other drug use, getting a divorce PHYSICAL EXAM: GENERAL: alert and oriented in no acute distress on stretcher, but appears anxious and tremulous. Head: normocephalic with a small 1 cm healing contusion to the left upper forehead. No laceration. EYES: No injection, discharge or icterus. PERRL, EOMI. NECK: Trachea midline. Supple. ENT: Mucous membranes pink and moist. Pharynx without erythema or exudate. No septal hematoma with some dried blood noted inside the left nares on exam. No obvious dental injury. LUNGS: Airway patent. No retractions. Breath sounds clear with good air entry bilaterally. HEART: Regular tachycardic rate and rhythm. No chest wall tenderness ABDOMEN: Soft and non-tender, without guarding or rebound. No significant flank tenderness SKIN: Acyanotic, warm, dry, without rashes EXTREMITIES: Without swelling, tenderness or deformity NEUROLOGICAL: No focal deficits. Somewhat anxious and tremulous slightly pressured speech. No aphasia. No facial droop or slurred speech. Normal strength and tone in the extremities. Sensation to gross touch normal. Ambulatory. Psych: Endorses SI with possible plan to overdose. Pressured speech and anxious and was tremulous. Denies HI. Not responding to external stimuli. EK bpm sinus tachycardia. No PVC or PAC. No acute ST segment elevation or depression with a QTc of 479. CONTINUOUS CARDIAC MONITORING: was ordered and showed a heart rate of 80s to 120s Bpm in sinus tachycardia normal sinus rhythm Patient's laboratory studies and imaging reviewed. Differential includes Mood disorder, infection, hypoglycemia, electrolyte abnormalities, cardiac sources, intracerebral event, toxicologic, trauma, neurologic, as well as other pathologies. IMPRESSION/MEDICAL DECISION MAKING: Patient quite anxious. Endorses SI. Not hallucinating. Reports may be some hallucinations or withdrawal symptoms similar in the past but not hospitalized no seizures reported. Reports marijuana use has been denies other drug use. UDS checked here and consistent with. Alcohol level undetectable. Given some Valium initially to help calm her. Given her history of heavy drinking do question if she may go into withdrawal. Is tachycardic and hypertensive upon arrival. Given a banana bag. Given the history of some falls with the alcohol intake although she does not appear in any extremis, will complete CT imaging in addition to blood work. Seen with case management given the SI report. Likely will need treatment to get through any possible overall withdrawal before psychiatric placement. Chemistries here without severe electrolyte abnormality or signs of renal dysfunction. CK not significantly elevated and doubt rhabdomyolysis. Possible overdose of BuSpar or trazodone. EKG and again toxicology labs were sent. Did discuss briefly with poison control but supportive care recommended. CT of the head, cervical spine, chest abdomen pel without contrast without significant findings beyond some nonspecific moderate pelvic free fluid without significant abdominal tenderness on exam. No believe any significant traumatic injuries beyond some contusions are notable. Again surprisingly alcohol levels not elevated. Believe she is experiencing alcohol withdrawal type symptoms and she is is somewhat improved on reassessment after receiving some IV Valium. Will no history of seizures given her active SI as well as findings of some alcohol withdrawal will need medical monitoring until stable for inpatient psychiatric care. DIAGNOSIS: Alcohol withdrawal, anxiety, depression with suicidal ideation DISPOSITION: Hospitalist will evaluate Past Med/Surg History Medical History Encounter for pre-operative examination GERD (gastroesophageal reflux disease) Well controlled and stable Asthma mild Anemia iron transfusion weekly - follows with heme with routinely Surgical History Hx of colonoscopy pre cancer polyp and screen every 3 years History of abdominoplasty History of delivery History of gastric bypass [place] teeth removed S/P appendectomy Family History Father Myocardial infarction Other Heart disease Hypertension Kidney stones Lung disease Denies family history of Ovarian cancer Prostate cancer Breast cancer Colorectal cancer Social History Smoking Status: Current every day smoker Tobacco Type: Cigarettes and E-cigarettes / Vaping Cigarettes Per Day: 3 cig day; Second Hand Exposure: No; Do You Dip or Chew Tobacco: No; Hx Alcohol Use: Yes Hx Substance Use: No Preferred Language: Citizen Of [place] Communication Ability: Effective Visual Impairment: No Limitations Hearing Ability: Normal Window Trimmer Required: No Beliefs That Will Affect Care: None marital status: Current Living Situation: Family current occupational status: employed Feels Safe at Home: Yes Childhood Exposure to Second-Hand Smoke: Yes Diet: other Diet Comment: pt stated that her diet is terrible due to stress Dental Care, Regularly: Yes Physical Activity Frequency: 1-2 Times per Week Seatbelt Use: always Sunscreen Use: Yes Assistive Devices: Glasses Allergies Allergies Allergy/AdvReac Type Severity Reaction Status Date / Time azithromycin Allergy Intermediate Hives Verified 07/19/22 09:57 [place] NSAIDS (Non-Steroidal Allergy Unknown HAD Verified 07/19/22 09:57 Anti-Inflamma GASTRIC BYPASS Penicillins Allergy Unknown RASH Verified 07/19/22 09:57 Home Meds Home Medications Medication Instructions Recorded Confirmed buspirone 15 mg tablet 15 mg PO QID 05/05/23 05/05/23 fluoxetine 40 mg capsule 40 mg PO DAILY 05/05/23 05/05/23 Results & Data (ED) Vital Signs Vital Signs - 24 hr 05/05/23 11:52 05/05/23 13:10 05/05/23 13:31 Temperature 36.5 C Temperature Source Temporal Artery Scan Pulse Rate 133 H 107 H Pulse Rate [Right Finger] 96 H Pulse Rhythm Regular Pulse Strength Normal Respiratory Rate 22 18 Respiratory Effort / Characteristics Non-Labored Respiratory Depth Normal Respiratory Pattern Regular Blood Pressure 171/109 H Blood Pressure [Right Arm] 151/103 H Blood Pressure Mean 129 Blood Pressure Mean [Right Arm] 119 Blood Pressure Position Sitting Blood Pressure Position [Right Arm] Pulse Oximetry 98 98 Oxygen Delivery Method Room Air Room Air Sepsis Recent Fever Within 48 Hours No Sepsis New/Unexplained Change in Mental Status No Sepsis Action Taken by Nursing No Action Required 05/05/23 14:57 05/05/23 15:00 Temperature Temperature Source Pulse Rate Pulse Rate [Right Finger] 93 H Pulse Rhythm Pulse Strength Respiratory Rate 20 Respiratory Effort / Characteristics Non-Labored Spontaneous Respiratory Depth Normal Respiratory Pattern Regular Blood Pressure Blood Pressure [Right Arm] 140/73 Blood Pressure Mean Blood Pressure Mean [Right Arm] 95 Blood Pressure Position Blood Pressure Position [Right Arm] Semi-fowlers Pulse Oximetry 98 98 Oxygen Delivery Method Room Air Room Air Sepsis Recent Fever Within 48 Hours Sepsis New/Unexplained Change in Mental Status Sepsis Action Taken by Nursing Laboratory Data 05/05/23 12:25 05/05/23 12:25 Lab Results 05/05/23 05/05/23 05/05/23 Range/Units 12:11 12:25 12:30 WBC 10.16 (4.8-10.8) K/ul RBC 5.29 (4.20-5.40) M/uL Hgb 17.4 H (12.0-16.0) g/dl Hct 48.9 H (37.0-47.0) % MCV 92.4 (80.0-100.0) fL MCH 32.9 (25.0-34.0) pg MCHC 35.6 (32.0-36.0) g/dL RDW Std Deviation 43.0 (36.4-46.3) fL RDW Coeff of Karine 12.6 (11.5-14.5) % Plt Count 324 (130-400) K/uL MPV 8.8 L (9.4-12.4) fL Immature Gran % (Auto) 0.8 % Neut % (Auto) 83.2 % Lymph % (Auto) 10.4 % Kendall % (Auto) 5.0 % Eos % (Auto) 0.2 % Baso % (Auto) 0.4 % Neut # (Auto) 8.45 H (1.40-6.50) K/uL Lymph # (Auto) 1.06 L (1.20-3.40) K/uL Kendall # (Auto) 0.51 (0.11-0.59) K/uL Eos # (Auto) 0.02 (0.00-0.50) K/uL Baso # (Auto) 0.04 (0.00-0.20) K/uL Immature Gran # (Auto) 0.08 (0.01-0.20) K/uL PT 10.0 (9.0-12.0) Seconds INR 0.9 (0.9-1.1) Sodium 135 L (136-145) mmol/L Potassium 3.5 (3.5-5.1) mmol/L Chloride 100 (98-107) mmol/L Carbon Dioxide 23 (21-32) mmol/L Anion Gap 12 H (3-11) BUN 17 (6-23) mg/dl Creatinine 0.84 (0.6-1.2) mg/dl Est Cr Clr Drug Dosing 89.7 ml/min Est GFR ( Amer) 104.4 ml/min Est GFR (Non-Af Amer) 90.0 ml/min BUN/Creatinine Ratio 20.2 H (10-20) Glucose 87 (70-99(Fasting)) mg/dl POC Glucose 92 (70-99) mg/dl Calcium 9.9 (8.6-10.3) mg/dl Magnesium 1.8 (1.7-2.4) mg/dl Total Bilirubin 0.4 (0.2-1.0) mg/dl AST 35 (13-39) U/L ALT 32 (7-52) U/L Alkaline Phosphatase 95 (34-104) U/L Total Creatine Kinase 197 H (26-192) U/L Total Protein 7.8 (6.0-8.3) gm/dl Albumin 5.0 (3.4-5.0) gm/dl Globulin 2.8 (2.5-4.0) gm/dl Albumin/Globulin Ratio 1.8 (0.9-2) TSH 1.567 (0.300-4.500) uIu/ml HCG, Qual Negative (Negative) Urine Color Dark Yellow Urine Appearance Clear (Clear) Urine pH 5.5 (4.5-7.5) Ur Specific Snook 1.029 (1.000-1.030) Urine Protein 1+ H (Negative) Urine Glucose (UA) Negative (Negative) Urine Ketones 1+ H (Negative) Urine Blood 3+ H (Negative) Urine Nitrite Negative (Negative) Urine Bilirubin Negative (Negative) Urine Urobilinogen Negative (Negative) Ur Leukocyte Esterase Negative (Negative) Urine WBC (Auto) 1-5 (0-5) /hpf Urine RBC (Auto) 5-10 H (0-4) /hpf U Hyaline Cast (Auto) 1-5 (0-5) /lpf U Epithel Cells (Auto) >30 H (0-5) /lpf Urine Bacteria (Auto) Negative (Negative) Salicylates < 3.0 L (3.0-30) mg/dl Urine Opiates Screen Neg (Neg) Ur Methadone, Qual Neg (Neg) Acetaminophen < 3 L (10-30) ug/ml Urine Barbiturates Neg (Neg) Ur Phencyclidine (PCP) Neg (Neg) U Amphetamin/Meth Scrn Neg (Neg) MDMA (Ecstasy) Screen Neg (Neg) U Benzodiazepines Scrn Neg (Neg) Ur Cocaine Metabolite Neg (Neg) U Marijuana (THC) Screen Pos H (Neg) Ethyl Alcohol mg/dL < 10.0 (<10.0) mg/dl SARS-CoV-2, RNA, NAAT NEGATIVE (NEGATIVE) Administered Medications Chlordiazepoxide HCl (Chlordiazepoxide Hcl 25 Mg Cap) 50 mg PO Q6H RUBEN Stop: 05/06/23 09:01 Last Admin: 05/05/23 15:28 Dose: 50 mg Documented By: ÁNGELA Discontinued Medications Diazepam (Diazepam 5 Mg/Ml 10ml Vial) 5 mg IV NOW STA Stop: 05/05/23 12:19 Last Admin: 05/05/23 12:54 Dose: 5 mg Documented By: ANGELITO Diazepam (Diazepam 5 Mg/Ml 10ml Vial) 5 mg IV NOW STA Stop: 05/05/23 13:50 Last Admin: 05/05/23 14:10 Dose: 5 mg Documented By: CHERIE Multivitamins 10 ml/ Thiamine HCl 100 mg/ Folic Acid 1 mg/Sodium Chloride 1,011.2 mls @ 500 mls/hr IV .Q2H2M ONE Stop: 05/05/23 14:19 Last Infusion: 05/05/23 15:02 Dose: Infused Documented By: Admin: 05/05/23 13:00 Dose: 500 mls/hr Documented By: ANGELITO Imaging Data Radiologist's Impression: Abdomen/Pelvis CT 05/05/23 12:18 CT abd pelvis wo con CLINICAL HISTORY: falls, etoh TECHNIQUE: Helical axial images of the abdomen and pelvis were obtained. Automated dose lowering techniques and/or adjustment according to patient size were utilized for this exam. This exam was performed without intravenous contrast. CT DOSE: 3028.1 mGy.cm COMPARISON: Comparison is made to CT abdomen pelvis 11/19/2012 FINDINGS: Lower chest: No acute abnormality. Liver: Unremarkable. No focal lesions are seen. Gallbladder and biliary tree: No calcified gallstones. Normal caliber wall. No intra- or extrahepatic biliary ductal dilation. Pancreas: Unremarkable, no focal lesions. Spleen: Unremarkable. Adrenals: Unremarkable. Kidneys and ureters: Unremarkable. Bladder: Limited evaluation due to underdistention. Reproductive organs: Patient is status post hysterectomy. Bowel: Patient is status post appendectomy. Matt-en-Y gastric bypass is seen. Lymph nodes Retroperitoneal: Unremarkable. Pelvic: Unremarkable. Mesenteric: Unremarkable. Peritoneum: Normal. Vessels: Unremarkable. Abdominal wall: Fat-containing right-sided ventral hernia noted. Bones: Unremarkable. IMPRESSION: Moderate pelvic free fluid is seen, new from prior exam, nonspecific. Otherwise no acute abnormalities are seen. ACT 112: Negative or not required by law. Electronically signed by: Steffen Lovell M.D. 05/05/2023 1:[address] 05/05/23 12:18 CT SCAN OF THE CERVICAL SPINE CLINICAL HISTORY: Falls. Intoxication. COMPARISON STUDY: CT of the cervical spine dated 02/12/2018. TECHNIQUE: CT scan of the cervical spine is performed from the skull base to the upper thoracic spine. Images are reviewed in the axial, sagittal, and coronal planes. IV contrast was not administered for this examination. A dose lowering technique was utilized adhering to the principles of ALARA. FINDINGS: Skeletal structures: The skeletal structures are well mineralized. There is no evidence of fracture or subluxation involving the cervical spine. Vertebral body height and alignment are maintained. The odontoid process and lateral masses are intact. The atlantoaxial articulation is preserved. The spinous processes appear intact. Intervertebral discs: The disc spaces are well maintained. Central canal: Widely patent. Soft tissues: The prevertebral and paraspinous soft tissues are within normal limits. Calvarium: The visualized calvarium at the skull base appears intact. Brain parenchyma: Partially visualized brain parenchyma at the skull base is within normal limits. Sinuses and mastoids: The visualized paranasal sinuses are clear. The mastoid air cells are well pneumatized. Lung apices: Clear as visualized. IMPRESSION: There is no evidence of cervical spine fracture or subluxation. ACT 112: Negative or not required by law. Electronically signed by: Wyatt Bonilla M.D. 05/05/2023 12:[address] 05/05/23 12:18 CT OF THE CHEST WITHOUT IV CONTRAST CLINICAL HISTORY: falls, etoh COMPARISON STUDY: Chest radiograph February 21, 2021. TECHNIQUE: Axial images of the chest were obtained without IV contrast. Images were reviewed in the axial, sagittal, and coronal planes. IV contrast was not administered for this examination. Automated exposure control was utilized for the study. A dose lowering technique was utilized adhering to the principles of ALARA. FINDINGS: The thoracic aorta is suboptimally assessed on this unenhanced exam but there is no mediastinal hematoma. Size of the heart is normal. There is no pericardial effusion. No pneumothorax, pleural effusion or pulmonary contusion is present. No acute rib or thoracic spine fracture is present. There are postoperative findings consistent with Matt-en-Y gastric bypass. Please note that the abdomen and pelvis CT will be reported separately. IMPRESSION: No acute traumatic findings within the chest on unenhanced exam. ACT 112: Negative or not required by law. Electronically signed by: Rubens Whitehead M.D. 05/05/2023 1:[address] 05/05/23 12:18 CT head/brain wo con CLINICAL HISTORY: falls, etoh Technique: Contiguous axial CT images of the head were acquired from the base of the skull to the vertex without intravenous contrast administration. Images were viewed in brain, subdural and bone windows. Automated dose lowering techniques and/or adjustment according to patient size were utilized for this exam. Comparison: Comparison is made to CT head 02/12/2018 Findings: The ventricles, basal cisterns, and cerebral sulci are normal. There is no acute intracranial hemorrhage or evidence of acute territorial infarction. Neither mass effect, shift of the midline structures, nor abnormal extra-axial fluid collections are shown. Imaged portions of the paranasal sinuses and mastoid air cells are clear. The orbits appear normal. There are no acute fractures of the calvaria or scalp swelling. Impression: No acute intracranial hemorrhage, no evidence of acute territorial infarction or other acute intracranial disease process. ACT 112: Negative or not required by law. Electronically signed by: Steffen Lovell M.D. 05/05/2023 1:03 PM Discharge Plan Visit Data Chief Complaint: Mental Health Evaluation Stated Complaint: E ED Provider: Marcell Sharma Discharge Problem: Alcohol withdrawal, Suicidal ideations, Alcohol abuse, Contusion of forehead Patient Disposition: Being Evaluated by Hospitalist Forms Stand Alone Forms: [facility], Suicide Prevention Resources Prescriptions Prescriptions: No Action fluoxetine 40 mg capsule 40 mg PO DAILY buspirone 15 mg tablet 15 mg PO QID Referrals Referrals: Louie Montilla DO [Physician] - Discharge Problem: Alcohol withdrawal Qualifiers: Complication of substance-induced condition: uncomplicated Qualified Code(s): F 10.930 - Alcohol use, unspecified with withdrawal, uncomplicated Contusion of forehead Qualifiers: Encounter type: initial encounter Qualified Code(s): S00.83XA - Contusion of other part of head, initial encounter
--- NOTE | 2023-05-05 13:09 | CT Scan Report ---
CT OF THE CHEST WITHOUT IV CONTRAST CLINICAL HISTORY: falls, etoh COMPARISON STUDY: Chest radiograph February 21, 2021. TECHNIQUE: Axial images of the chest were obtained without IV contrast. Images were reviewed in the axial, sagittal, and coronal planes. IV contrast was not administered for this examination. Automat ed exposure control was utilized for the study. A dose lowering technique was utilized adhering to t he principles of ALARA. FINDINGS: The thoracic aorta is suboptimally assessed on this unenhanced exam but there is no medias tinal hematoma. Size of the heart is normal. There is no pericardial effusion. No pneumothorax, pleur al effusion or pulmonary contusion is present. No acute rib or thoracic spine fracture is present. Th ere are postoperative findings consistent with Matt-en-Y gastric bypass. Please note that the abdomen and pelvis CT will be reported separately. IMPRESSION: No acute traumatic findings within the chest on unenhanced exam. ACT 112: Negative or not required by law. Electronically signed by: Rubens Whitehead M.D. 05/05/2023 1:08 PM
[2023-05-05 13:12] LABS: Pregnancy Test, Serum Negative (Negative)
--- NOTE | 2023-05-05 13:12 | CT Scan Report ---
CT abd pelvis wo con CLINICAL HISTORY: falls, etoh TECHNIQUE: Helical axial images of the abdomen and pelvis were obtained. Automated dose lowering tech niques and/or adjustment according to patient size were utilized for this exam. This exam was perfor med without intravenous contrast. CT DOSE: 3028.1 mGy.cm COMPARISON: Comparison is made to CT abdomen pelvis 11/19/2012 FINDINGS: Lower chest: No acute abnormality. Liver: Unremarkable. No focal lesions are seen. Gallbladder and biliary tree: No calcified gallstones. Normal caliber wall. No intra- or extrahepatic biliary ductal dilation. Pancreas: Unremarkable, no focal lesions. Spleen: Unremarkable. Adrenals: Unremarkable. Kidneys and ureters: Unremarkable. Bladder: Limited evaluation due to underdistention. Reproductive organs: Patient is status post hysterectomy. Bowel: Patient is status post appendectomy. Matt-en-Y gastric bypass is seen. Lymph nodes Retroperitoneal: Unremarkable. Pelvic: Unremarkable. Mesenteric: Unremarkable. Peritoneum: Normal. Vessels: Unremarkable. Abdominal wall: Fat-containing right-sided ventral hernia noted. Bones: Unremarkable. IMPRESSION: Moderate pelvic free fluid is seen, new from prior exam, nonspecific. Otherwise no acute abnormalitie s are seen. ACT 112: Negative or not required by law. Electronically signed by: Steffen Lovell M.D. 05/05/2023 1:10 PM
[2023-05-05 13:17] LABS: Albumin Globulin Ratio 1.8 (0.9-2); BUN Creatinine Ratio 20.2 (10-20); Bilirubin,Total 0.4 mg/dl (0.2-1.0); Calcium 9.9 mg/dl (8.6-10.3); Creatinine Clr Calc Pharmacy 89.7 ml/min; Est GFR (African American) 104.4 ml/min; Globulin 2.8 gm/dl (2.5-4.0); Potassium 3.5 mmol/L (3.5-5.1); Total Protein 7.8 gm/dl (6.0-8.3)
[2023-05-05 13:18] LABS: INR 0.9 (0.9-1.1)
[2023-05-05 13:25] LABS: Basophils # (auto) 0.04 K/uL (0.00-0.20); Basophils % (auto) 0.4 %; Eosinophils # (auto) 0.02 K/uL (0.00-0.50); Eosinophils % (auto) 0.2 %; Hematocrit (blood only) 48.9 % (37.0-47.0); Hemoglobin 17.4 g/dl (12.0-16.0); Immature Granulocytes # (auto) 0.08 K/uL (0.01-0.20); Immature Granulocytes % (auto) 0.8 %; Lymphocytes # (auto) 1.06 K/uL (1.20-3.40); Lymphocytes % (auto) 10.4 %; Mean Corpuscular Hemoglobin 32.9 pg (25.0-34.0); Mean Corpuscular Hgb Conc 35.6 g/dL (32.0-36.0); Mean Corpuscular Volume 92.4 fL (80.0-100.0); Mean Platelet Volume 8.8 fL (9.4-12.4); Monocytes # (auto) 0.51 K/uL (0.11-0.59); Neutrophils # (auto) 8.45 K/uL (1.40-6.50); Neutrophils % (auto) 83.2 %; Platelet Count 324 K/uL (130-400); RDW Coefficient of Variation 12.6 % (11.5-14.5); Red Blood Count 5.29 M/uL (4.20-5.40); White Blood Count 10.16 K/ul (4.8-10.8)
[2023-05-05 13:30] LABS: Thyroid Stimulating Hormone 1.567 uIu/ml (0.300-4.500)
[2023-05-05 13:41] LABS: Acetaminophen < 3 ug/ml (10-30); Salicylate < 3.0 mg/dl (3.0-30)
--- NOTE | 2023-05-05 14:05 | History & Physical Report ---
Date of Service May 05, 2023 Assessment & Plan (1) Suicidal ideations: (2) Anxiety: (3) GERD (gastroesophageal reflux disease): Plan Disposition: Admit to PCU telemetry History of Present Illness Chief Complaint: Mental health evaluation Primary Care Provider: Millicent Kebede PA-C [place] is a 37-year-old female with PMH of anxiety, anemia, GERD, gastric bypass, appendectomy, and hysterectomy. She presented for mental health evaluation following reported suicidal ideations. She also reports that she took a bottle of trazodone a couple days ago, and that she has been drinking half a gallon of liquor per day. She reports that she is interested in treatment and rehab for alcohol. Denies history of DTs. Patient is hypertensive at 151/103 at time of admission; vitals otherwise stable. ED course: Valium 5 mg IV x 2 Banana bag ROS: Patient endorses Patient denies Allergies Allergy/AdvReac Type Severity Reaction Status Date / Time azithromycin Allergy Intermediate Hives Verified 07/19/22 09:57 [place] NSAIDS (Non-Steroidal Allergy Unknown HAD Verified 07/19/22 09:57 Anti-Inflamma GASTRIC BYPASS Penicillins Allergy Unknown RASH Verified 07/19/22 09:57 Home Medications Medication Instructions Recorded Confirmed Type acetaminophen 500 mg tablet 1,500 mg PO Q6H PRN fever/pain 03/12/20 07/19/22 History (Tylenol Extra Strength) albuterol sulfate 2.5 mg/3 mL 2.5 mg (3 mL) inhalation Q6H PRN 03/12/20 07/19/22 Rx (0.083 %) solution for nebulization bronchospasm #1 box albuterol sulfate 90 mcg/actuation 2 puffs inhalation QID PRN 03/12/20 07/19/22 Rx aerosol inhaler (Ventolin HFA) shortness of breath or wheezing #8.5 grams triamcinolone acetonide 0.1 % 1 applic topical BID #15 grams 02/14/21 07/19/22 Rx topical cream phentermine 37.5 mg tablet 37.5 mg PO 02/05/22 07/19/22 History keto drink mix PO 03/08/22 07/19/22 History melatonin 10 mg capsule 10 mg PO TID 07/19/22 07/19/22 History metronidazole 500 mg tablet 500 mg PO BID 7 days #14 tabs 07/22/22 Rx Past Med/Surg History Medical History (Updated 05/05/23 @ 14:07 by Reji Paniagua PA-C) Encounter for pre-operative examination GERD (gastroesophageal reflux disease) Well controlled and stable Asthma mild Anemia iron transfusion weekly - follows with heme with routinely Surgical History History of abdominoplasty History of delivery History of gastric bypass Hx of colonoscopy S/P appendectomy [place] teeth removed Family History Father Myocardial infarction Other Heart disease Hypertension Kidney stones Lung disease Denies family history of Ovarian cancer Prostate cancer Breast cancer Colorectal cancer Social History (Updated 07/19/22 @ 10:03 by GRACIELA Wilson) Smoking Status: Current every day smoker Tobacco Type: Cigarettes and E-cigarettes / Vaping Cigarettes Per Day: 3 cig day; Second Hand Exposure: No; Do You Dip or Chew Tobacco: No; Hx Alcohol Use: Yes Hx Substance Use: No Preferred Language: Ukrainian Communication Ability: Effective Visual Impairment: No Limitations Hearing Ability: Normal Um Nurse Required: No Beliefs That Will Affect Care: None marital status: Current Living Situation: Family current occupational status: employed Feels Safe at Home: Yes Childhood Exposure to Second-Hand Smoke: Yes Diet: other Diet Comment: pt stated that her diet is terrible due to stress Dental Care, Regularly: Yes Physical Activity Frequency: 1-2 Times per Week Seatbelt Use: always Sunscreen Use: Yes Assistive Devices: Glasses Review of Systems Review of Systems: See HPI above Physical Exam Physical Exam: General: no acute distress; non-toxic appearing; well-nourished; cooperative HEENT: normocephalic, atraumatic; no scleral icterus; PERRLA w/ EOMs intact; mo ist mucus membrane; vision and hearing grossly intact Neck: supple; no JVD; no lymphadenopathy; trachea midline Skin: warm, dry without signs of tenting; no cyanosis; no rashes, bruising, lesions, or erythema noted CV: chest wall NTP; RRR; S1/S2 normal; no murmurs/rubs/gallops; pulses intact and symmetric at radial, DP, and PT Lungs: no acute respiratory distress; symmetrical chest wall expansion; clear breath sounds across all lung zuñiga w/o adventitious sounds; no wheezing ABD: Soft, NTP; BS present; no rebound/guarding; no ascites; no distention; negative CVA tenderness MSK: no tics or fasciculations; no edema noted in the LEs b/l, nonerythematous Neuro: A&Ox3; normal mood and affect; fluent speech; no focal deficits; sensation grossly intact in the LEs b/l Results & Data Results & Data Vital Signs (Past 12 Hours) Vital Signs Temp Pulse Pulse Resp BP BP Pulse Ox 05/05/23 13:31 96 H 18 151/103 H 98 05/05/23 13:10 107 H 05/05/23 11:52 36.5 C 133 H 22 171/109 H 98 O2 Del Method 05/05/23 13:31 Room Air 05/05/23 13:10 05/05/23 11:52 Room Air Laboratory Results Abnormal lab results 05/05/23 05/05/23 Range/Units 12:11 12:25 Hgb 17.4 H (12.0-16.0) g/dl Hct 48.9 H (37.0-47.0) % MPV 8.8 L (9.4-12.4) fL Neut # (Auto) 8.45 H (1.40-6.50) K/uL Lymph # (Auto) 1.06 L (1.20-3.40) K/uL Sodium 135 L (136-145) mmol/L Anion Gap 12 H (3-11) BUN/Creatinine Ratio 20.2 H (10-20) Total Creatine Kinase 197 H (26-192) U/L Urine Protein 1+ H (Negative) Urine Ketones 1+ H (Negative) Urine Blood 3+ H (Negative) Urine RBC (Auto) 5-10 H (0-4) /hpf U Epithel Cells (Auto) >30 H (0-5) /lpf Salicylates < 3.0 L (3.0-30) mg/dl Acetaminophen < 3 L (10-30) ug/ml U Marijuana (THC) Screen Pos H (Neg) Diagnostic Findings Abdomen/Pelvis CT 05/05/23 12:18 CT abd pelvis wo con CLINICAL HISTORY: falls, etoh TECHNIQUE: Helical axial images of the abdomen and pelvis were obtained. Automated dose lowering techniques and/or adjustment according to patient size were utilized for this exam. This exam was performed without intravenous contrast. CT DOSE: 3028.1 mGy.cm COMPARISON: Comparison is made to CT abdomen pelvis 11/19/2012 FINDINGS: Lower chest: No acute abnormality. Liver: Unremarkable. No focal lesions are seen. Gallbladder and biliary tree: No calcified gallstones. Normal caliber wall. No intra- or extrahepatic biliary ductal dilation. Pancreas: Unremarkable, no focal lesions. Spleen: Unremarkable. Adrenals: Unremarkable. Kidneys and ureters: Unremarkable. Bladder: Limited evaluation due to underdistention. Reproductive organs: Patient is status post hysterectomy. Bowel: Patient is status post appendectomy. Matt-en-Y gastric bypass is seen. Lymph nodes Retroperitoneal: Unremarkable. Pelvic: Unremarkable. Mesenteric: Unremarkable. Peritoneum: Normal. Vessels: Unremarkable. Abdominal wall: Fat-containing right-sided ventral hernia noted. Bones: Unremarkable. IMPRESSION: Moderate pelvic free fluid is seen, new from prior exam, nonspecific. Otherwise no acute abnormalities are seen. ACT 112: Negative or not required by law. Electronically signed by: Steffen Lovell M.D. 05/05/2023 1:[address] 05/05/23 12:18 CT SCAN OF THE CERVICAL SPINE CLINICAL HISTORY: Falls. Intoxication. COMPARISON STUDY: CT of the cervical spine dated 02/12/2018. TECHNIQUE: CT scan of the cervical spine is performed from the skull base to the upper thoracic spine. Images are reviewed in the axial, sagittal, and coronal planes. IV contrast was not administered for this examination. A dose lowering technique was utilized adhering to the principles of ALARA. FINDINGS: Skeletal structures: The skeletal structures are well mineralized. There is no evidence of fracture or subluxation involving the cervical spine. Vertebral body height and alignment are maintained. The odontoid process and lateral masses are intact. The atlantoaxial articulation is preserved. The spinous processes appear intact. Intervertebral discs: The disc spaces are well maintained. Central canal: Widely patent. Soft tissues: The prevertebral and paraspinous soft tissues are within normal limits. Calvarium: The visualized calvarium at the skull base appears intact. Brain parenchyma: Partially visualized brain parenchyma at the skull base is within normal limits. Sinuses and mastoids: The visualized paranasal sinuses are clear. The mastoid air cells are well pneumatized. Lung apices: Clear as visualized. IMPRESSION: There is no evidence of cervical spine fracture or subluxation. ACT 112: Negative or not required by law. Electronically signed by: Wyatt Bonilla M.D. 05/05/2023 12:[address] 05/05/23 12:18 CT OF THE CHEST WITHOUT IV CONTRAST CLINICAL HISTORY: falls, etoh COMPARISON STUDY: Chest radiograph February 21, 2021. TECHNIQUE: Axial images of the chest were obtained without IV contrast. Images were reviewed in the axial, sagittal, and coronal planes. IV contrast was not administered for this examination. Automated exposure control was utilized for the study. A dose lowering technique was utilized adhering to the principles of ALARA. FINDINGS: The thoracic aorta is suboptimally assessed on this unenhanced exam but there is no mediastinal hematoma. Size of the heart is normal. There is no pericardial effusion. No pneumothorax, pleural effusion or pulmonary contusion is present. No acute rib or thoracic spine fracture is present. There are postoperative findings consistent with Matt-en-Y gastric bypass. Please note that the abdomen and pelvis CT will be reported separately. IMPRESSION: No acute traumatic findings within the chest on unenhanced exam. ACT 112: Negative or not required by law. Electronically signed by: Rubens Whitehead M.D. 05/05/2023 1:[address] 05/05/23 12:18 CT head/brain wo con CLINICAL HISTORY: falls, etoh Technique: Contiguous axial CT images of the head were acquired from the base of the skull to the vertex without intravenous contrast administration. Images were viewed in brain, subdural and bone windows. Automated dose lowering techniques and/or adjustment according to patient size were utilized for this exam. Comparison: Comparison is made to CT head 02/12/2018 Findings: The ventricles, basal cisterns, and cerebral sulci are normal. There is no acute intracranial hemorrhage or evidence of acute territorial infarction. Neither mass effect, shift of the midline structures, nor abnormal extra-axial fluid collections are shown. Imaged portions of the paranasal sinuses and mastoid air cells are clear. The orbits appear normal. There are no acute fractures of the calvaria or scalp swelling. Impression: No acute intracranial hemorrhage, no evidence of acute territorial infarction or other acute intracranial disease process. ACT 112: Negative or not required by law. Electronically signed by: Steffen Lovell M.D. 05/05/2023 1:03 PM PG Care Time/CCT Total # of Minutes Spent Total Time Spent with Patient: Total time spent is greater than 50% in coordination of care (as documented) at patient's floor/unit and/or counseling patient: Coding Diagnoses Suicidal ideations R45.851 Anxiety F41.9 GERD (gastroesophageal reflux disease) K21.9
[2023-05-05 14:13] LABS: Magnesium 1.8 mg/dl (1.7-2.4)
--- NOTE | 2023-05-05 14:46 | Electrocardiogram Report ---
Test Reason : Blood Pressure : / mmHG Vent. Rate : 110 BPM Atrial Rate : 110 BPM P-R Int : 116 ms QRS Dur : 072 ms QT Int : 354 ms P-R-T Axes : 072 045 039 degrees QTc Int : 479 ms Sinus tachycardia Possible Left atrial enlargement Borderline ECG When compared with ECG of 15-OCT-2019 21:03, No significant change was found Confirmed by Michoacano Ferrell ([id number]) on 05/05/2023 2:46:05 PM Referred By: Confirmed By:Michoacano Ferrell
[2023-05-05] MEDS ORDERED: LORazepam 3 MG in SYRINGE 1.5 ML IV PRN (14:57)
[2023-05-05] MEDS ORDERED: Ativan IV Alcohol Withdrawal--Active Protocol IV PRN (14:57)
[2023-05-05] MEDS ORDERED: chlordiazePOXIDE ALCOHOL WITHDRAWL 50MG PO STA (14:57)
[2023-05-05] MEDS ORDERED: LORazepam 2 MG in SYRINGE 1 ML IV PRN (14:57)
[2023-05-05] MEDS ORDERED: LORazepam 1 MG in SYRINGE 0.5 ML IV PRN (14:57)
[2023-05-05] MEDS: chlordiazePOXIDE HCl 25 MG CAP PO SCH (15:28)
--- NOTE | 2023-05-05 15:41 | History & Physical Report ---
Date of Service May 05, 2023 Assessment & Plan (1) Suicidal ideations: (2) Alcohol abuse: (3) Alcohol withdrawal: (4) History of gastric bypass: (5) Dehydration: (6) Elevated CK: (7) Folate deficiency: (8) Tobacco abuse: Plan This is a 37-year-old female who has a significant past medical history of gastric bypass, GERD, asthma, tobacco abuse, alcohol abuse, marijuana use and depression with anxiety who presents to ED secondary to suicidal ideation and alcohol abuse. Alcohol withdrawal Alcohol abuse Dehydration Metabolic acidosis admit to PCU AWSS protocol prn IV lorazepam for active sx scheduled librium taper encourage alcohol cessation, interested in cessation daily thiamine, folate IVF NSS + 20meq KCL repeat CK, UA in a.m. Elevated CK does not meet criteria for rhabdo blood noted in urine repeat CK and urine in a.m. likely in setting of alcohol abuse Suicidal ideations Depression with anxiety pt on fluoxetine and buspar as OP admits to being compliant but with heavy alcohol use continue for now consult psych one to one with suicide precautions Folate deficiency noted in OP lab work start on daily folate recommend f/u with PCP obtain B12 Hx of gastric bypass pt states previously received IM Vit b12 but hasn't in sometime will obtain b12 level in a.m. Tobacco abuse encourage cessation DVT ppx: encourage ambulation FULL CODE PCP: Millicent Kebede Pt was seen and examined in collaboration with Dr. Lopez, please see addendum A total of 76 minutes was spent coordinating, documenting, and providing care for this patient excluding time spent in the performance of separately billed services. This included personally viewing all current laboratories and imaging studies, medication reconciliation, outpatient chart review, and discussion with specialists. History of Present Illness Chief Complaint: Alcohol abuse, suicidal ideation Primary Care Provider: Millicent Kebede PA-C This is a 37-year-old female who has a significant past medical history of gastric bypass, GERD, asthma, tobacco abuse, alcohol abuse, marijuana use and depression with anxiety who presents to ED secondary to suicidal ideation and alcohol abuse. She states she has been having difficult time for the last year. She has been going through a divorce and just lost her job 2 weeks ago. She states she has had [facility] called on her 6 times and has lost her children due to her making false claims regarding her alcohol use. She does admit to alcohol abuse. She states typically she drinks 324 ounce cans of truly a day, but most recently has been drinking a gallon of Greg Hunter. She states her last drink was this morning. She states [facility] was last called on her 4 days ago and she tried to abstain from alcohol. When she did this she had significant night sweating and palpitations. She denies any seizure-like activity or tremors. She states a few days ago she was drunk and when she woke up her pill bottle of BuSpar was on the floor, and some pills were scattered. She is unsure if she took some. She denies any fever, chills, sweats, recent illness, shortness of breath, nausea, vomiting, abdominal pain, change in bowel or urinary habits. She states she has not been eating and drinking well as she is been mostly on a, "alcohol diet." She states she has a lot going on in her life and is having a difficult time with at all. In ED patient was hypertensive and tachycardic. She did receive a banana bag as well as 2 doses of 5 mg of IV diazepam. This did help. She had a CBC and CMP which revealed dehydration with elevated H&H, metabolic acidosis and anion gap at 12 and elevated total CK at 197. Her drug screen was positive for marijuana. Head CT was negative for any acute intracranial hemorrhage. Allergies Allergy/AdvReac Type Severity Reaction Status Date / Time azithromycin Allergy Intermediate Hives Verified 07/19/22 09:57 [place] NSAIDS (Non-Steroidal Allergy Unknown HAD Verified 07/19/22 09:57 Anti-Inflamma GASTRIC BYPASS Penicillins Allergy Unknown RASH Verified 07/19/22 09:57 Home Medications Medication Instructions Recorded Confirmed Type buspirone 15 mg tablet 15 mg PO QID 05/05/23 05/05/23 History fluoxetine 40 mg capsule 40 mg PO DAILY 05/05/23 05/05/23 History Past Med/Surg History Medical History Encounter for pre-operative examination GERD (gastroesophageal reflux disease) Well controlled and stable Asthma mild Anemia iron transfusion weekly - follows with heme with routinely Surgical History Hx of colonoscopy pre cancer polyp and screen every 3 years History of abdominoplasty History of delivery History of gastric bypass [place] teeth removed S/P appendectomy Family History Father Myocardial infarction Other Heart disease Hypertension Kidney stones Lung disease Denies family history of Ovarian cancer Prostate cancer Breast cancer Colorectal cancer Social History Smoking Status: Current every day smoker Tobacco Type: Cigarettes and E-cigarettes / Vaping Cigarettes Per Day: 3 cig day; Second Hand Exposure: No; Do You Dip or Chew Tobacco: No; Hx Alcohol Use: Yes Alcohol type: hard liquor Hx Substance Use: Yes Preferred Language: Belarusian Communication Ability: Effective Visual Impairment: No Limitations Hearing Ability: Normal [employer] Estate Management Specialist Required: No Beliefs That Will Affect Care: None marital status: Current Living Situation: Alone current occupational status: employed Feels Safe at Home: No Is there a partner from a previous relationship who is making you feel unsafe now?: No Childhood Exposure to Second-Hand Smoke: Yes Diet: other Diet Comment: pt stated that her diet is terrible due to stress Dental Care, Regularly: Yes Physical Activity Frequency: 1-2 Times per Week Seatbelt Use: always Sunscreen Use: Yes Assistive Devices: None Review of Systems Review of Systems: All systems reviewed & are unremarkable except as noted in HPI & below Physical Exam Physical Exam: Gen: WD/WN, NAD, A&O x3, appears anxious HEENT: Normocephalic, atraumatic, conjunctivae moist, sclerae anicteric, mucous membranes dry. Lung: Clear to Auscultation bilaterally, no wheezes/rales/rhonchi Heart: tachycardic rate, reg rhythm, normal s1/s2 Abdomen: nondistended, not ttp, +BS Extremities: No edema Skin: Warm, no rash, negative turgor. Results & Data Results & Data Vital Signs (Past 12 Hours) Vital Signs Temp Pulse Pulse Resp BP BP Pulse Ox 05/05/23 15:00 93 H 20 140/73 98 05/05/23 14:57 98 05/05/23 13:31 96 H 18 151/103 H 98 05/05/23 13:10 107 H 05/05/23 11:52 36.5 C 133 H 22 171/109 H 98 O2 Del Method 05/05/23 15:00 Room Air 05/05/23 14:57 Room Air 05/05/23 13:31 Room Air 05/05/23 13:10 05/05/23 11:52 Room Air Diagnostic Findings Abdomen/Pelvis CT 05/05/23 12:18 CT abd pelvis wo con CLINICAL HISTORY: falls, etoh TECHNIQUE: Helical axial images of the abdomen and pelvis were obtained. Automated dose lowering techniques and/or adjustment according to patient size were utilized for this exam. This exam was performed without intravenous contrast. CT DOSE: 3028.1 mGy.cm COMPARISON: Comparison is made to CT abdomen pelvis 11/19/2012 FINDINGS: Lower chest: No acute abnormality. Liver: Unremarkable. No focal lesions are seen. Gallbladder and biliary tree: No calcified gallstones. Normal caliber wall. No intra- or extrahepatic biliary ductal dilation. Pancreas: Unremarkable, no focal lesions. Spleen: Unremarkable. Adrenals: Unremarkable. Kidneys and ureters: Unremarkable. Bladder: Limited evaluation due to underdistention. Reproductive organs: Patient is status post hysterectomy. Bowel: Patient is status post appendectomy. Matt-en-Y gastric bypass is seen. Lymph nodes Retroperitoneal: Unremarkable. Pelvic: Unremarkable. Mesenteric: Unremarkable. Peritoneum: Normal. Vessels: Unremarkable. Abdominal wall: Fat-containing right-sided ventral hernia noted. Bones: Unremarkable. IMPRESSION: Moderate pelvic free fluid is seen, new from prior exam, nonspecific. Otherwise no acute abnormalities are seen. ACT 112: Negative or not required by law. Electronically signed by: Steffen Lovell M.D. 05/05/2023 1:[address] 05/05/23 12:18 CT SCAN OF THE CERVICAL SPINE CLINICAL HISTORY: Falls. Intoxication. COMPARISON STUDY: CT of the cervical spine dated 02/12/2018. TECHNIQUE: CT scan of the cervical spine is performed from the skull base to the upper thoracic spine. Images are reviewed in the axial, sagittal, and coronal planes. IV contrast was not administered for this examination. A dose lowering technique was utilized adhering to the principles of ALARA. FINDINGS: Skeletal structures: The skeletal structures are well mineralized. There is no evidence of fracture or subluxation involving the cervical spine. Vertebral body height and alignment are maintained. The odontoid process and lateral masses are intact. The atlantoaxial articulation is preserved. The spinous processes appear intact. Intervertebral discs: The disc spaces are well maintained. Central canal: Widely patent. Soft tissues: The prevertebral and paraspinous soft tissues are within normal limits. Calvarium: The visualized calvarium at the skull base appears intact. Brain parenchyma: Partially visualized brain parenchyma at the skull base is within normal limits. Sinuses and mastoids: The visualized paranasal sinuses are clear. The mastoid air cells are well pneumatized. Lung apices: Clear as visualized. IMPRESSION: There is no evidence of cervical spine fracture or subluxation. ACT 112: Negative or not required by law. Electronically signed by: Wyatt Bonilla M.D. 05/05/2023 12:[address] 05/05/23 12:18 CT OF THE CHEST WITHOUT IV CONTRAST CLINICAL HISTORY: falls, etoh COMPARISON STUDY: Chest radiograph February 21, 2021. TECHNIQUE: Axial images of the chest were obtained without IV contrast. Images were reviewed in the axial, sagittal, and coronal planes. IV contrast was not administered for this examination. Automated exposure control was utilized for the study. A dose lowering technique was utilized adhering to the principles of ALARA. FINDINGS: The thoracic aorta is suboptimally assessed on this unenhanced exam but there is no mediastinal hematoma. Size of the heart is normal. There is no pericardial effusion. No pneumothorax, pleural effusion or pulmonary contusion is present. No acute rib or thoracic spine fracture is present. There are postoperative findings consistent with Matt-en-Y gastric bypass. Please note that the abdomen and pelvis CT will be reported separately. IMPRESSION: No acute traumatic findings within the chest on unenhanced exam. ACT 112: Negative or not required by law. Electronically signed by: Rubens Whitehead M.D. 05/05/2023 1:[address] 05/05/23 12:18 CT head/brain wo con CLINICAL HISTORY: falls, etoh Technique: Contiguous axial CT images of the head were acquired from the base of the skull to the vertex without intravenous contrast administration. Images were viewed in brain, subdural and bone windows. Automated dose lowering techniques and/or adjustment according to patient size were utilized for this exam. Comparison: Comparison is made to CT head 02/12/2018 Findings: The ventricles, basal cisterns, and cerebral sulci are normal. There is no acute intracranial hemorrhage or evidence of acute territorial infarction. Neither mass effect, shift of the midline structures, nor abnormal extra-axial fluid collections are shown. Imaged portions of the paranasal sinuses and mastoid air cells are clear. The orbits appear normal. There are no acute fractures of the calvaria or scalp swelling. Impression: No acute intracranial hemorrhage, no evidence of acute territorial infarction or other acute intracranial disease process. ACT 112: Negative or not required by law. Electronically signed by: Steffen Lovell M.D. 05/05/2023 1:03 PM Medications Administered Medication List Chlordiazepoxide HCl (Chlordiazepoxide Hcl 25 Mg Cap) 50 mg PO Q6H RUBEN Stop: 05/06/23 09:01 Last Admin: 05/05/23 15:28 Dose: 50 mg Documented By: ÁNGELA Discontinued Medications Diazepam (Diazepam 5 Mg/Ml 10ml Vial) 5 mg IV NOW STA Stop: 05/05/23 12:19 Last Admin: 05/05/23 12:54 Dose: 5 mg Documented By: ANGELITO Diazepam (Diazepam 5 Mg/Ml 10ml Vial) 5 mg IV NOW STA Stop: 05/05/23 13:50 Last Admin: 05/05/23 14:10 Dose: 5 mg Documented By: CHERIE Multivitamins 10 ml/ Thiamine HCl 100 mg/ Folic Acid 1 mg/Sodium Chloride 1,011.2 mls @ 500 mls/hr IV .Q2H2M ONE Stop: 05/05/23 14:19 Last Infusion: 05/05/23 15:02 Dose: Infused Documented By: Admin: 05/05/23 13:00 Dose: 500 mls/hr Documented By: ANGELITO ECG Additional Comments: I have independently reviewed and interpreted patient's admitting EKG which revealed: 111, ST, qtc 479ms, no st or t wave changes COVID-19 Results Results COVID-19 Adm Lab Results: RBC 4.17 M/uL (4.20-5.40) L 05/06/23 WBC 5.12 K/ul (4.8-10.8) 05/06/23 Hgb 13.4 g/dl (12.0-16.0) 05/06/23 Hct 39.9 % (37.0-47.0) 05/06/23 Plt Count 215 K/uL (130-400) 05/06/23 Neutrophils (%) (Auto) 64.2 % 05/06/23 Lymphocytes (%) (Auto) 25.0 % 05/06/23 Monocytes # (Auto) 0.42 K/uL (0.11-0.59) 05/06/23 Eosinophils # (Auto) 0.08 K/uL (0.00-0.50) 05/06/23 Immature Granulocyte % (Auto) 0.6 % 05/06/23 Neutrophils # (Auto) 3.29 K/uL (1.40-6.50) 05/06/23 Lymphocytes # (Auto) 1.28 K/uL (1.20-3.40) 05/06/23 Monocytes # (Auto) 0.42 K/uL (0.11-0.59) 05/06/23 Eosinophils # (Auto) 0.08 K/uL (0.00-0.50) 05/06/23 Basophils # (Auto) 0.02 K/uL (0.00-0.20) 05/06/23 Immature Granulocyte # (Auto) 0.03 K/uL (0.01-0.20) 4 Na 138 mmol/L (136-145) 05/06/23 K 4.1 mmol/L (3.5-5.1) 05/06/23 Cl 108 mmol/L (98-107) H 05/06/23 CO2 25 mmol/L (21-32) 05/06/23 Anion Gap 5 (3-11) 05/06/23 BUN 13 mg/dl (6-23) 05/06/23 Creatinine 0.73 mg/dl (0.6-1.2) 05/06/23 BUN/Creatinine Ratio 17.8 (10-20) 05/06/23 Glucose Level 82 mg/dl (70-99(Fasting)) 05/06/23 Ca 8.3 mg/dl (8.6-10.3) L 05/06/23 Total Bilirubin 0.6 mg/dl (0.2-1.0) 05/06/23 AST/SGOT 30 U/L (13-39) 05/06/23 ALT/SGPT 25 U/L (7-52) 05/06/23 Alkaline Phosphatase 65 U/L (34-104) 05/06/23 Total Protein 5.2 gm/dl (6.0-8.3) L 05/06/23 Albumin 3.4 gm/dl (3.4-5.0) 05/06/23 Globulin 1.8 gm/dl (2.5-4.0) L 05/06/23 Albumin/Globulin Ratio 1.9 (0.9-2) 05/06/23 Total CK 91 U/L (26-192) 05/06/23 INR 0.9 (0.9-1.1) 05/05/23 SARS-CoV-2, RNA, NAAT NEGATIVE (NEGATIVE) 05/05/[address] 05/05/23 Code Status & VTE Plan Code Status FULL CODE VTE Prophylaxis Plan VTE Prophylaxis will be ordered: No Reason for no VTE drug order: Treatment not indicated Supervising Physician Co-Signing Physician Notes Attending Addendum: care coordinated with DANIELLE Gamez please refer to her notes for full details, I agree with her notes patient seen and examined, records reviewed by myself as well diagnoses and plan of care as per DANIELLE Lopez MD
[2023-05-05] MEDS ORDERED: ONDANSETRON INJ 2 MG/ML 2 ML VIAL IV PRN (16:26)
[2023-05-05] MEDS ORDERED: ACETAMINOPHEN 325 MG TAB PO PRN (16:26)
[2023-05-05] MEDS ORDERED: POLYETHYLENE (MIRALAX) 17 GM PACK PO PRN (16:26)
[2023-05-05] MEDS ORDERED: ALUMINUM/MAGNESIUM SUSP 30 ML UDC PO PRN (16:26)
[2023-05-05] MEDS ORDERED: MAGNESIUM HYDROXIDE SUSP 30 ML UDC PO PRN (16:26)
[2023-05-05] MEDS: busPIRone 15 MG TAB PO SCH (17:07)
[2023-05-05] MEDS: NSS + 20MEQ KCL 20 MEQ/1,000 ML BAG IV SCH (17:07)
--- OUTSIDE RECORDS SUMMARY | 2023-05-05 18:57 | External Medical Summary ---
Author Name Unknown Address Unknown Organization [id number]:LABORATORY [facility] – [place] - [address] [place] [address] Laboratory Report Ordering Provider Test Date Status MEAGAN ROBINS 03/14/2023 15:51:08 Final Observation Date Value Abnormality Reference (Units ) Status Folic Acid 03/14/2023 15:51:08 3.5 Below low normal >4 .5 (ng/mL) Final Performing Location LABORATORY [facility] - [address] [place] [address]
--- OUTSIDE RECORDS SUMMARY | 2023-05-05 18:57 | External Medical Summary ---
Author Name Unknown Address Unknown Organization [id number]:LABORATORY [facility] [place] - [address] [place] [address] Laboratory Report Ordering Provider Test Date Status MEAGAN ROBINS 03/14/2023 15:51:08 Final Observation Date Value Abnormality Reference (Units ) Status Rheumatoid Factor 03/14/2023 15:51:08 <10 <1 4 (IU/mL) Final Performing Location LABORATORY [facility] - [address] [place] [address]
--- OUTSIDE RECORDS SUMMARY | 2023-05-05 18:57 | External Medical Summary | Summary of Care ---
Author Name Unknown Organization [facility] Address [address] [place] [address] Phone [phone] Care Team Providers Care Rubber Grinder Name Role Phone Louie Montilla Attjoycelyn DO Primary Care Provider Reason for Visit * Reason Comments Outpatient Testing Encounter Details Date Type Department Care Team (Late st Contact Info) Description 03/14/2023 4:00 PM EST Laboratory Laboratory, [place] [address] [place] [phone] [facility] [address], [place] [id number] Iron deficiency; Arthralgia, unspecified joint; Malaise and fatigue Allergies Active Allergy Reactions Criticality Noted Date Comments Amoxicillin Hives 07/14/2013 documented as of this encounter (statuses as of 04/04/2023) Medications Medication Sig Dispensed Refills Start Date End Date Status COLACE 100 MG PO CAPS daily 0 Active Esomeprazole Magnesium 20 MG Oral Capsule Delayed Release (NexIUM) Take 1 Capsule by mouth daily before breakfast. 0 Active Aspirin 325 MG Oral Tablet Take 2 Tablets by mouth as needed. 0 Active NSS 0.9 % SOLN 500 mL with Iron Dextran 50 MG/ML SOLN 1,000 mg Administer intravenously 1,000 mg . 0 Active Fluconazole 150 MG Oral Tablet (Diflucan) Take diflucan 150 mg one tab once and then ok to repeat in 3 days if symptom persists 2 Tablet 0 07/15/2022 Active FLUoxetine HCl 10 MG Oral Capsule (PROzac)Indication s:Adjustment disorder with depressed mood 1 cap daily x 7 days then 2 caps daily. May take in AM or PM 50 Capsule 0 02/12/2023 Active Hydrocortisone 2.5 % External CreamIndications:E czema, unspecified type Apply topically to affected area 3 times a day as needed for Other (ezcema). To affected area of face 30 g 5 02/12/2023 Active FLUoxetine HCl 40 MG Oral Capsule (PROzac)Indication s:Depression with anxiety Take 1 Capsule by mouth in the morning. 90 Capsule 1 03/14/2023 Active busPIRone HCl 15 MG Oral Tablet (Buspar)Indication s:Panic attacks Take one tab by mouth up to three times a day 270 Tablet 1 03/14/2023 Active traZODone HCl 50 MG Oral Tablet (Desyrel)Indicatio ns:Psychophysiolog ical insomnia One half to one whole tab by mouth at bedtime. After one week if not sleeping then can increase to one and a half tabs. At bedtime. 45 Tablet 5 03/14/2023 Active metroNIDAZOLE 1 % External Gel (Metrogel)Indicati ons:Eczema, unspecified type Apply topically to affected area 2 times a day. To affected area. 60 g 11 03/14/2023 Active Folic Acid 1 MG Oral TabletIndications: Iron deficiency,Malaise and fatigue Take 1 Tablet by mouth in the morning. 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 Obesity complicating 12/30/2013 03/11/2014 Overview: Anesthesia consult scheduled - 02/18/2014 2:30pm [facility], order in [employer] [id number]/5/2014 Jessica Kimball, RN @36w3d: EFW 2500gm (25-50%); HA 10.3cm Supervision of other high-risk 11/16/2013 09/12/2015 Overview: Tdap vaccine administered 01/26/2014 Allison Whaley RN Flu vaccine administered 01/26/2014 Allison Whaley RN ICD-10 update of inactive term First trimester screening 08/30/2013 Presence of intrauterine con traceptive device (IUD) 07/18/2011 02/15/2014 ABNORM NOS-ANTEPAR - CEREBELLUM 02/03/2011 04/08/2011 Body mass index (BMI) of 45.0-49.9 in adult 02/03/2011 05/26/2017 Overview: ICD-10 update of inactive term Bacterial infection due to S treptococcus, group B 10/12/2010 03/07/2011 Overview: 20 wk urine cx less than 10,000 GBS Oligohydramnios, antepartum 10/10/2010 03/07/2011 Overview: 10/10: HA-9cm- 5%; MFM consult 10/25: MFM recommendation: Follow up ultrasound with MFM is recommended in 2 weeks for US limited due to subjectively low amniotic fluid. 11/08: Recommend follow up ultrasound with MFM in 4-5 weeks for growth secondary to her elevated BMI. Tobacco use disorder 08/02/2010 011 Overview: Smoking 2-4ciggs/day at NOB visit-intends to quit-pt has quit as of 10/10 Asthma with severity to be determined 08/31/2009 05/26/2017 Overview: Per Asthma Taxonomy ICD-10 update of inactive term Presence of intrauterine contraceptive device 06/23/19 09 08/02/2010 OB [place] 01/22/2008 9 Hemorrhoids 01/08/2008 08/02/2010 Overview: Proctofoam and Lidocaine 5 % Asthma, allergic 12/31/2007 08/31/2009 INFORMATION- Surveillance 11/06/2007 02/01/2008 Overview: Anatomy scan at 17w4d by [facility] was limited heart,left toes,and genitalia secondary to position. Action/Plan/Outcome: Repeat in 8 weeks at f/u MFM appt showed symmetric growth and normal anatomy HBP PF 08/21/2007 08/21/2007 Overview: No insurance applying for MA Enroll in HBP once MA is active- Action/Plan/Outcome: Enrolled in HBP Von Willebrand's disease 08/21/200705/2023 Overview: Questionable dx of Von Willebrand's. Patient is unsure if she was dx with this or not. Action/Plan/Outcome: VW multifactor negative; Factor VIII antigen elevated on NOB labs. Being followed by [facility]; seen 11/05/07. To obtain previous records from childhood and f/u in 8 weeks. Referred to Heme, but no showed appointment. Dr. Huber will not see her again. Must make appointment with [facility] if desires future heme consult. 01/08/08 -- Heme consult -- no evidence of disease. Tobacco use disorder 08/21/2007 009 Overview: Smoking 6 cigs per day. Action/Plan/Outcome: Advise cessation every visit. documented as of this encounter (statuses as of 04/04/2023) Immunizations Name Administration Dates Next Due Seasonal Influenza, PF, 6 M & above, IM , (FluLaval or Fluzone) 12/28/2020 Seasonal Influenza, Split, IIV3, With Preserve, Inj 01/26/2014 TDAP (age 10 and older)(Boostrix) 01/26/2014 documented as of this encounter Social History Tobacco Use Types Packs/Day Years Used Date Smoking Tobacco: Some Days Cigarettes 0.2 15 Smokeless Tobacco: Never Comments:pt quits during pre gnancy then goes back to it Alcohol Use Standard Drinks/Week Comments Yes 0 (1 standard drink = 0.6 oz pur e alcohol) occ PHQ-2 Answer Date Recorded PHQ-2 Score 1 05/15/2018 Sex and Gender Information Value Date Recorded Sex Assigned at Not on file Gender Identity Not on file Sexual Orientation Not on file Job Start Date Occupation Industry Not on file Not on file Not on file documented as of this encounter Miscellaneous Notes * Addendum Note - Millicent Kebede PA-C - 04/04/2023 5:01 PM ESTAddended by: MILLICENT KEBEDE on: 04/04/2023 05:01 PM Modules accepted: Orders documented in this encounter Plan of Treatment Upcoming Encounters Date Type Department Care Team (Late st Contact Info) Description 04/11/2023 3:00 PM EST Office Visit [place] [address] [place] [phone] Millicent Kebede PA-C [address], [place] [phone] Scheduled Orders Name Type Priority Associated Diagnoses Orde r Schedule FOLIC ACID Lab Routine Iron deficiency Malaise and fatigue Expected: 04/04/2023 (Approximate), Expires: 04/03/2024 Health Maintenance Due Date Last Done Comments Hepatitis B (1 of 3 - 3-dose series) 1987 COVID-19 Vaccine (#1) 01/30/1988 Pneumococcal Vaccine: Pediatrics (0 to 5 Years) and At-Risk Patients (6 to 64 Years) (1 - PCV) 07/29/1993 Depression Screening 05/16/2019 05/15/2018 Influenza Vaccine (FLU shot) (#1) 2022 12/28/2020, 01/26/2014 Diabetes Screening 12/26/2023 12/25/2020, 0 11/01/2015, 07/14/2013, Additional history exists DTaP,Tdap,and Td Vaccines (2 - Td or Tdap) 01/27/2024 01/26/2014 COLONOSCOPY-EVERY 3 YRS AGES 18-100 04/19/2024 04/19/2021, 04/19/2021, 12/05/2017, Additional history exists Cervical Cancer Screening Discontinued Pap Smear Discontinued 07/14/2013, 06/0 03/2011, 08/02/2010, Additional history exists GARDASIL-HPV IMMUNIZATION SERIES Aged Out No longer eligible based on patient's age to complete this topic HPV/Co-Test Discontinued MENINGOCOCCAL (MENACTRA/MENVEO) Aged Out No longer eligible based on patient's age to complete this topic documented as of this encounter Medical Devices Not on filedocumented as of this encounter Procedures Procedure Name Priority Date/Time Associated Diagnosis Comments ANEMIA REFLEX CHEMISTRY HOLD Routine 03/14/2023 3:51 PM EST Iron deficiency ANTINUCLEAR ANTIBODY (RHODA) SCREEN, CUCO Routine 03/14/2023 3:51 PM EST Arthralgia, unspecified joint ANEMIA CBC Routine 03/14/2023 3:51 PM EST Iron deficiency DIFFERENTIAL, AUTOMATED Routine 03/14/2023 3:51 PM EST Iron deficiency DIFFERENTIAL, AUTOMATED Routine 03/14/2023 3:51 PM EST Iron deficiency VITAMIN B1 (THIAMINE), BLOOD, LC/MS/MS Routine 03/14/2023 3:51 PM EST Iron deficiency TSH WITH FREE T4 IF INDICATED Routine 03/14/2023 3:51 PM EST Malaise and fatigue ANTINUCLEAR ANTIBODY (RHODA) EIA SCREEN WITH REFLEX AB QUANT Routine 03/14/2023 3:51 PM EST Arthralgia, unspecified joint 25-HYDROXY VITAMIN D Routine 03/14/2023 3:51 PM EST Malaise and fatigue FOLIC ACID Routine 03/14/2023 3:51 PM EST Malaise and fatigue CK Routine 03/14/2023 3:51 PM EST Arthralgia, unspecified joint RHEUMATOID FACTOR Routine 03/14/2023 3:5 1 PM EST Arthralgia, unspecified joint ERYTHROCYTE SEDIMENTATION RATE (ESR) Routine 03/14/2023 3:51 PM EST Arthralgia, unspecified joint FERRITIN Routine 03/14/2023 3:51 PM EST Iron deficiency VITAMIN B12 Routine 03/14/2023 3:51 PM EST Iron deficiency documented in this encounter Results * ANTINUCLEAR ANTIBODY (RHODA) SCREEN, CUCO (03/14/2023 3:51 PM EST) RHODA Screen Negative Negative 03/16/2023 11:54 AM EST LABORATORY [facility] dsDNA Antibody Interpretation Negative Negative 03/16/2023 11:54 AM EST LABORATORY [facility] dsDNA Antibody Value 2.7 <20 IU/mL 03/16/2023 11:54 AM EST LABORATORY [facility] [place] Antibodies Screen Interpretation Negative Negative 03/16/2023 11:54 AM EST LABORATORY [facility] [place] Antibodies Screen Value <0.1 <0.7 Ratio 03/16/2023 11:54 AM EST LABORATORY [facility] Comment: Screening is based on detection of the following antibodies: dsDNA, U1-B2B SALES CONSULTANT (RNP70, A, C), SS-A/Ro, SS-B / La, Shruthi-1, Scl-70, Centromere B proteins and Sm proteins. In conjunction with clinical findings, this can aid in the diagnosis of systemic lupus erythematosous (SLE), mixed connective tissue disease (MCTD), Sjogren's syndrome, scleroderma and polymyositis/dermatomyositis. However, a negative result does not rule out systemic rheumatic or other autoimmune disease. If clinically suspected, further evaluation and testing may be necessary. Please consult with Rheumatology Department. Methodology: Fluorescent Enzyme Immunoassay. Blood Venous blood specimen / Unknown Venipuncture / Unknown 03/14/2023 3:51 PM EST 03/14/2023 3:54 PM EST [facility] Cloud Enginesar PA-C LAB BLOOD ORDERAB LES Performing Organization Address [facility]/ZIP Co de Phone Number [facility] [address] [place] [address] * ANEMIA REFLEX CHEMISTRY HOLD (03/14/2023 3:51 PM EST) Blood Venous blood specimen / Unknown Venipuncture / Unknown 03/14/2023 3:51 PM EST 03/14/2023 3:54 PM EST Millicent A [facility] PA-C LAB BLOOD ORDERAB LES Performing Organization Address [facility]/ZIP Co de Phone Number [facility] [address] [place] [address] * (ABNORMAL) DIFFERENTIAL, AUTOMATED (03/14/2023 3:51 PM EST) WBC 10.93(H) 4.00 - 10.80 K/uL 03/15/2023 12:07 AM EST [facility] Neutrophils % 70.0 40.0 - 75.0 % 03/15/2023 12:07 AM EST [facility] Lymphocytes % 20.0 18.0 - 42.0 % 03/15/2023 12:07 AM EST [facility] Monocytes % 7.6 1.0 - 11.0 % 03/15/2023 12:07 AM EST [facility] Eosinophils % 1.6 0.0 - 6.0 % 03/15/2023 12:07 AM EST [facility] Basophils % 0.4 0.0 - 2.0 % 03/15/2023 12:07 AM EST [facility] Immature Granulocytes % 0.4 0.0 - 2.0 % 03/15/2023 12:07 AM EST [facility] Absolute Neutrophils 7.65 1.80 - 7.70 K/uL 03/15/2023 12:07 AM EST [facility] Absolute Lymphocytes 2.19 1.00 - 4.80 K/ul 03/15/2023 12:07 AM EST [facility] Absolute Monocytes 0.83 0.00 - 1.10 K/uL 03/15/2023 12:07 AM EST [facility] Absolute Eosinophils 0.18 0.00 - 0.70 K/uL 03/15/2023 12:07 AM EST [facility] Absolute Basophils 0.04 0.00 - 0.20 K/uL 03/15/2023 12:07 AM EST [facility] Absolute Immature Granulocytes 0.04 0.00 - 0.20 K/uL 03/15/2023 12:07 AM EST [facility] Blood Venous blood specimen / Unknown Venipuncture / Unknown 03/14/2023 3:51 PM EST 03/14/2023 3:54 PM EST Millicent Kebede PA-C LAB BLOOD ORDERAB LES [facility] [address] [place] [address] * (ABNORMAL) ANEMIA CBC (03/14/2023 3:51 PM EST) WBC 10.93(H) 4.00 - 10.80 K/uL 03/15/2023 12:07 AM EST [facility] RBC 4.20 3.85 - 5.15 M/uL 03/15/2023 12:07 AM EST [facility] HGB 13.9 12.0 - 15.3 g/dL 03/15/2023 12:07 AM EST [facility] Comment: Anemia reflex testing triggers on a HGB < 12.0 for Females and HGB < 13.0 for Males in accordance with the WHO Anemia Guidelines Anemia reflex testing triggers on a HGB < 12.0 for Females and HGB < 13.0 for Males in accordance with the WHO Anemia Guidelines HCT 41.1 36.0 - 45.2 % 03/15/2023 12:07 AM EST [facility] MCV 97.9 81.5 - 97.5 fL 03/15/2023 12:07 AM EST [facility] MCH 33.1 27.0 - 34.0 pg 03/15/2023 12:07 AM EST [facility] MCHC 33.8 32.0 - 36.0 g/dL 03/15/2023 12:07 AM EST LABORATORY [facility] RDW 12.3 11.5 - 15.5 % 03/15/2023 12:07 AM EST LABORATORY [facility] PLT 333 140 - 400 K/uL 03/15/2023 12:07 AM EST LAB[facility]ATORY [facility] MPV 9.3 6.6 - 11.1 fL 03/15/2023 12:07 AM EST LAB[facility]ATORY [facility] nRBCs 0 <=0 /100 WBCs 03/15/2023 12:07 AM EST LAB[facility]ATORY [facility] Blood Venous blood specimen / Unknown Venipuncture / Unknown 03/14/2023 3:51 PM EST 03/14/2023 3:54 PM EST Millicent A Cloud Enginesbhavinar PA-C LAB BLOOD ORDERAB LES Performing Organization Address City/[facility]/ZIP Co de Phone Number LABORATORY [facility] [address] [place] [address] * (ABNORMAL) FOLIC ACID (03/14/2023 3:51 PM EST) Folic Acid 3.5(L) >4.5 ng/mL 03/15/2023 2:33 PM EST [facility]ORY [facility] Blood Venous blood specimen / Unknown Venipuncture / Unknown 03/14/2023 3:51 PM EST 03/14/2023 3:54 PM EST Millicent A Cloud Enginesbhavinar PA-C LAB BLOOD ORDERAB LES Performing Organization Address City/[facility]/ZIP Co de Phone Number LABORATORY [facility] [address] [place] [address] * TSH WITH FREE T4 IF INDICATED (03/14/2023 3:51 PM EST) TSH 2.03 0.27 - 4.20 uIU/mL 03/15/2023 2:33 PM EST [facility]ORY [facility] Blood Venous blood specimen / Unknown Venipuncture / Unknown 03/14/2023 3:51 PM EST 03/14/2023 3:54 PM EST Millicent Kebede PA-C LAB BLOOD ORDERAB LES Performing Organization Address City/[facility]/ZIP Co de Phone Number LABORATORY [facility] [address] [place] [address] * 25-HYDROXY VITAMIN D (03/14/2023 3:51 PM EST) 25-Hydroxy Vitamin D 34 >19 ng/mL 03/15/2023 2:33 PM EST LAB[facility]ORY [facility] Blood Venous blood specimen / Unknown Venipuncture / Unknown 03/14/2023 3:51 PM EST 03/14/2023 3:54 PM EST Narrative LABORATORY C - 03/15/2023 2:33 PM EST Deficient: <20 ng/mL Insufficient: 20-29 ng/mL Recommended/Optimum:30-50 ng/mL Vitamin D intoxication is rare. If suspicious of Vitamin D toxicity, evaluation of serum Calcium and PTH is recommended. Millicent Kebede PA-C LAB BLOOD ORDERAB LES Performing Organization Address [facility] Co de Phone Number LABORATORY [facility] [address] [place] [address] * RHEUMATOID FACTOR (03/14/2023 3:51 PM EST) Rheumatoid Factor <10 <14 IU/mL 03/15/2023 3:14 PM EST LAB[facility]ATORY [facility] Blood Venous blood specimen / Unknown Venipuncture / Unknown 03/14/2023 3:51 PM EST 03/14/2023 3:54 PM EST Millicent Wittar PA-C LAB BLOOD ORDERAB LES Performing Organization Address City/[facility] Co de Phone Number LABORATORY [facility] [address] [place] [address] * ERYTHROCYTE SEDIMENTATION RATE (ESR) (03/14/2023 3:51 PM EST) ESR 3 <20 mm/hour 03/14/2023 11:29 PM EST LAB[facility]ATORY [facility] Blood Venous blood specimen / Unknown Venipuncture / Unknown 03/14/2023 3:51 PM EST 03/14/2023 3:54 PM EST Millicent A Mingear PA-C LAB BLOOD ORDERAB LES Performing Organization Address City/[facility]/ZIP Co de Phone Number LABORATORY [facility] [address] [place] [address] * CK (03/14/2023 3:51 PM EST) CK 148 26 - 192 U/L 03/15/2023 8:48 AM EST LABORATORY [facility] Blood Venous blood specimen / Unknown Venipuncture / Unknown 03/14/2023 3:51 PM EST 03/14/2023 3:54 PM EST Millicent Pinto Mingear PA-C LAB BLOOD ORDERAB LES Performing Organization Address [facility] Co de Phone Number LABORATORY [facility] [address] [place] [address] * VITAMIN B1 (THIAMINE), BLOOD, LC/MS/MS (03/14/2023 3:51 PM EST) Vitamin B1 (Thiamine),B 153 78 - 185 nmol/L 03/19/2023 1:[address] [employer] [facility] Comment: Vitamin supplementation within 24 hours prior to blood draw may affect the accuracy of the results. This test was developed and its analytical performance characteristics have been determined by [facility] [place], [place]. It has not been cleared or approved by the U.S. Food and Drug Administration. This assay has been validated pursuant to the CLIA regulations and is used for clinical purposes. Test Performed at: [facility] [address] [place] [address] Reji Hollins M.D., Ph.D.,Director of Laboratories Blood Venous blood specimen / Unknown Venipuncture / Unknown 03/14/2023 3:51 PM EST 03/14/2023 3:54 PM EST Millicent A Mingear PA-C LAB BLOOD ORDERAB LES Performing Organization Address [facility]/State/ZIP Co de Phone Number [facility] [address] [place] [address] * VITAMIN B12 (03/14/2023 3:51 PM EST) Vitamin B12 346 232 - 1,245 pg/mL 03/15/2023 2:33 PM EST [facility] Blood Venous blood specimen / Unknown Venipuncture / Unknown 03/14/2023 3:51 PM EST 03/14/2023 3:54 PM EST Millicent A Mingear PA-C LAB BLOOD ORDERAB LES Performing Organization Address City/[facility]/ZIP Co de Phone Number LABORATORY [facility] [address] [place] [address] * (ABNORMAL) FERRITIN (03/14/2023 3:51 PM EST) Ferritin 560(H) 13 - 150 ng/mL 03/15/2023 2:33 PM EST [facility] Blood Venous blood specimen / Unknown Venipuncture / Unknown 03/14/2023 3:51 PM EST 03/14/2023 3:54 PM EST Millicent A Mingear PA-C LAB BLOOD ORDERAB LES Performing Organization Address City/[facility]/ZIP Co de Phone Number LABORATORY [facility] [address] [place] [address] documented in this encounter Visit Diagnoses Diagnosis Iron deficiency Iron deficiency anemia, unspecified Arthralgia, unspecified joint Malaise and fatigue Other malaise and fatigue documented in this encounter Care Teams Rubber Grinder Relationship Specialty Start Date End Date Louie Montilla DO [address] [place] [address] PCP - General Family Medicine 04/19/21 documented as of this encounter
--- OUTSIDE RECORDS SUMMARY | 2023-05-05 18:57 | External Medical Summary ---
Author Name Unknown Address Unknown Organization [id number]:[place] [place] [address] [facility] [place] [address] Laboratory Report Ordering Provider Test Date Status MEAGAN ROBINS 03/14/2023 15:51:08 Final Observation Date Value Abnormality Reference (Units ) Status SYNC LEUKOCYTES IN BLOOD BY AUTOMATED COUNT 03/14/2023 15:51:08 10.93 Above high normal 4.00-10.80 (K/uL) Final Segs 03/14/2023 15:51:08 70.0 40.0-75.0 (%) Final Lymphs % 03/14/2023 15:51:08 20.0 18.0-42.0 (%) Final Monos 03/14/2023 15:51:08 7.6 1.0-11.0 (%) Final Eosinophils 03/14/2023 15:51:08 1.6 0.0-6.0 (%) Final Basos 03/14/2023 15:51:08 0.4 0.0-2.0 (%) Final Immature Granulocyte, Percent 03/14/2023 15:51:08 0.4 0.0-2.0 (%) Final Absolute Segs 03/14/2023 15:51:08 7.65 1.80-7.70 (K/uL) Final Lymphs, absolute 03/14/2023 15:51:08 2.19 1.00-4.80 (K/ul) Final Monos, Abs 03/14/2023 15:51:08 0.83 0.00-1.10 (K/uL) Final Eos, Abs 03/14/2023 15:51:08 0.18 0.00-0.70 (K/uL) Final Basos, Abs 03/14/2023 15:51:08 0.04 0.00-0.20 (K/uL) Final Immature Granulocytes, Number 03/14/2023 15:51:08 0.04 0.00-0.20 (K/uL) Final Performing Location [place] [facility] [place] [address] [facility] [address]
--- OUTSIDE RECORDS SUMMARY | 2023-05-05 18:57 | External Medical Summary ---
Author Name Unknown Address Unknown Organization [id number]:LAB[facility]ATORY [facility] [place] - [address] [facility] [address] Laboratory Report Ordering Provider Test Date Status MEAGAN ROBINS 03/14/2023 15:51:08 Final Observation Date Value Abnormality Reference (Units ) Status TSH 03/14/2023 15:51:08 2.03 0.27-4.20 (uIU/mL) Final Performing Location LABORATORY [facility] - [address] [facility] [address]
--- OUTSIDE RECORDS SUMMARY | 2023-05-05 18:57 | External Medical Summary ---
Author Name Unknown Address Unknown Organization [id number]:LAB[facility]ATORY [facility] [place] [address] [place] [address] Laboratory Report Ordering Provider Test Date Status MEAGAN ROBINS 03/14/2023 15:51:08 Final Observation Date Value Abnormality Reference (Units ) Status Vitamin B12 03/14/2023 15:51:08 173 260-3447 (pg/mL) Final Performing Location [facility] - [address] [place] [address]
--- OUTSIDE RECORDS SUMMARY | 2023-05-05 18:57 | External Medical Summary ---
Author Name Unknown Address Unknown Organization [id number]:LABORATORY [address] [facility] [address] Laboratory Report Ordering Provider Test Date Status MEAGAN ROBINS 03/14/2023 15:51:08 Final Observation Date Value Abnormality Reference (Units ) Status Nuclear IgG Ab [Ratio] in Serum by Immunoassay 03/14/2023 15:51:08 Negative Negative Final DNA double strand Ab [Presence] in Serum 03/14/2023 15:51:08 Negative Negative Final DOUBLE STRANDED DNA VALUE - [facility] 03/14/2023 15:51:08 2.7 <20 (IU/mL) Final Extractable nuclear Ab [Presence] in Serum 03/14/2023 15:51:08 Negative Negative Final Nuclear IgG Ab [Ratio] in Serum by Immunoassay 03/14/2023 15:51:08 <0.1 <0.7 (Ratio) Final Screening is based on detect ion of the following antibodies: dsDNA, U1-DIE TROUBLE SHOOTER (RNP70, A, C), SS-A/Ro, SS-B / La, [...] with Rheumatology Department.
Methodology: Fluorescent Enzyme Immunoassay. Performing Location LABORATORY [address] [facility] [address]
--- OUTSIDE RECORDS SUMMARY | 2023-05-05 18:57 | External Medical Summary | Summary of Care ---
Author Name Unknown Organization [facility] Address [address] [place] [address] Phone [phone] Care Team Providers Care Printing Bindery Assistant Name Role Phone Roldan Louie Raymond DO Primary Care Provider Reason for Visit * Reason Comments Eczema Pt states that she i s having eczema on face, physical, discuss anexity meds,cold sweats at night Encounter Details Date Type Department Care Team (Late st Contact Info) Description 03/14/2023 3:20 PM EST Office Visit [facility] [address] [place] [address] Millicent Kebede PA-C [address], [place] [id number] Wellness examination*; Iron deficiency; Arthralgia, unspecified joint; Malaise and fatigue; Depression with anxiety; Panic attacks; Psychophysiological insomnia; Eczema, unspecified type Allergies Active Allergy Reactions Criticality Noted Date Comments Amoxicillin Hives 07/14/2013 documented as of this encounter (statuses as of 03/14/2023) Medications Medication Sig Dispensed Refills Start Date [...] days if symptom persists 2 Tablet 0 3 Active FLUoxetine HCl 10 MG Oral Capsule (PROzac)Indicat ions:Adjustment disorder with depressed mood 1 cap daily x 7 days then 2 caps daily. May take in AM or PM 50 Capsule 0 3 Active Hydrocortisone 2.5 % External CreamIndication s:Eczema, unspecified type Apply topically to affected area 3 times a day as needed for Other (ezcema). To affected area of face 30 g 5 3 Active FLUoxetine HCl 40 MG Oral Capsule (PROzac)Indicat ions:Depression with anxiety Take 1 Capsule by mouth in the morning. 90 Capsule 1 4 Active busPIRone HCl 15 MG Oral Tablet (Buspar)Indicat ions:Panic attacks Take one tab by mouth up to three times a day 270 Tablet 1 4 Active traZODone HCl 50 MG Oral Tablet (Desyrel)Indica tions:Psychophy siological insomnia One half to one whole tab by mouth at bedtime. After one week if not sleeping then can increase to one and a half tabs. At bedtime. 45 Tablet 5 4 Active metroNIDAZOLE 1 % External Gel (Metrogel)Indic ations:Eczema, unspecified type Apply topically to affected area 2 times a day. To affected area. 60 g 11 4 Active FLUoxetine HCl 20 MG Oral Capsule (PROzac)Indicat ions:Adjustment disorder with depressed mood Take 1 Capsule by mouth in the morning. 90 Capsule 3 3 03/14/19 24 Discontinued busPIRone HCl 10 MG Oral Tablet (Buspar)Indicat ions:Anxiety state,Panic attacks 1 tab up to 3 times daily as needed for severe anxiety 40 Tablet 1 3 03/14/19 24 Discontinued(Me dication/Dose Changed) documented as of this encounter (statuses as of 03/14/2023) Active Problems Problem Noted Date Diagnosed Date Iron deficiency 04/09/2018 S/P gastric bypass 05/26/2017 Tobacco use documented as of this encounter (statuses as of 03/14/2023) Resolved Problems Problem Noted Date Diagnosed Date [...] Anesthesia consult scheduled - 02/18/2014 2:30pm [facility], order in Epic Paperwork [id number]/[id number] Jessica Kimball, RN @36w3d: EFW 2500gm (25-50%); [...] 02/01/2008 Overview: Anatomy scan at 17w4d by [facility] was limited heart,left toes,and genitalia secondary [...] elevated on NOB labs. Being followed by [facility]; seen 11/05/07. To obtain previous records from childhood and f/u in 8 weeks. Referred to Heme, but no showed appointment. Dr. Huber will not see her again. Must make appointment with [facility] if desires future heme consult. 01/08/08 -- Heme consult -- no evidence of disease. Tobacco use disorder 08/21/2007 009 Overview: Smoking 6 cigs per day. Action/Plan/Outcome: Advise cessation every visit. documented as of this encounter (statuses as of 03/14/2023) Immunizations Name Administration Dates Next Due Seasonal Influenza, PF, 6 M & above, IM , (FluLaval or Fluzone) 12/28/2020 Seasonal Influenza, Split, IIV3, With Preserve, Inj 01/26/2014 TDAP (age 10 and older)(Boostrix) 01/26/2014 documented as of this encounter Social History Tobacco Use Types Packs/Day Years Used Date Smoking Tobacco: Some Days Cigarettes 0.2 15 Smokeless Tobacco: Never Tobacco Cessation:Ready to Q uit: Not Asked; Counseling Given: Not Answered Comments:pt quits during then goes back to it Alcohol Use [...] on file documented as of this encounter Last Filed Vital Signs Vital Sign Reading Time Taken Comments Blood Pressure 148/88 03/14/2023 2:54 PM EST Pulse 89 03/14/2023 2:54 PM EST Temperature 36.2 C (97.1 F) 03/14/2023 2:54 PM ES T Respiratory Rate 18 03/14/2023 2:54 PM EST Oxygen Saturation 98% 03/14/2023 2:54 PM EST Inhaled Oxygen Concentration - - Weight 76.7 kg (169 lb 3.2 oz) 03/14/2023 2:54 P M EST Height 160 cm (5' 3") 03/14/2023 2:54 PM EST Body Mass Index 29.97 03/14/2023 2:54 PM EST documented in this encounter Progress Notes * Millicent Kebede PA-C - 03/14/2023 2:58 PM EST Images from the original note were not included. History of Present Illness Nimco Weber is a 37 year old female that presents for Eczema (Pt states that she is having eczema on face, physical, discuss anexity meds,cold sweats at night ) Here for recheck Did telemed with Dr Pearce - going through a tough divorce Stressed and anxious Taking 20 mg of fluoxetine. It takes the edge off, there are no negative side affects to this. Taking 10 mg of buspirone up to three times a day. No negative side affects. She would like her iron checked. Used to need IV iron. Hematology wanted her checked for autoimmune disease Her joints hurt when she has low iron Sleep is poor. Melatonin is not helping. Was doing tylenol pm. Her major issue now is the need to sleep and the lack there of currently. Light sleeper now but not normally. She has so much panic. Flare of eczema on her face as well. Has hydrocortisone for this. It helps a little but she has noted a lot of bumpiness. Past Medical History: Diagnosis Date ?Heme disorder diagnosed at [place] Asthma Albuterol PRN Colon polyp Depression celexa Pneumonia due to organism 03/10/1997 admitted to hospital S/P gastric bypass 05/26/2017 Tobacco use Extensive ROS Constitutional (f/c/wt/vision/hearing): Negative Resp (cough/sob/newton): Negative CV (cp/palp/fluttering/diaphoresis/newton/pnd):Negative GI (n/v/d/hrtburn): Negative Endo (hair/cold or heat intol/ 3 p's): Negative Neuro (shaking/weak/fatigu/parasthesi/): Negative Skin (rash/easy bruis/xerosis): Negative Psy (si/hi/halluc/): Negative (nocturia/hesit/drib/sexual review): Negative Lymph (swollen glands/b sx's/: Negative Physical Exam Vitals: 03/14/23 1454 Temp: 36.2 C (97.1 F) Pulse: 89 Resp: 18 SpO2: 98% BP: 148/88 BMI: 29.98 BP Readings from Last 3 Encounters: 03/14/23 148/88 03/12/23 150/100 04/19/21 123/50 Wt Readings from Last 3 Encounters: 03/14/23 76.7 kg (169 lb 3.2 oz) 03/12/23 78 kg (172 lb) 04/19/21 95.3 kg (210 lb) BMI Readings from Last 3 Encounters: 03/14/23 29.97 kg/m 03/12/23 30.47 kg/m 04/19/21 37.20 kg/m Ht Readings from Last 3 Encounters: 03/14/23 1.6 m (5' 3") 03/12/23 1.6 m (5' 3") 04/19/21 1.6 m (5' 3") General: alert, healthy, and no distress Head: Normocephalic, No masses, lesions, tenderness or abnormalities Eye Exam: PERRLA, extraocular movements intact, conjunctiva are pink and non- injected, sclera clear Ears: External ears normal, Canals clear, TM's Normal Nose: no mucosal erythema, no mucosal edema, no purulent discharge Oropharynx: no exudate, no erythema, lips, buccal mucosa, and tongue normal, and mucous membranes are moist Neck: supple, no adenopathy, no bruits, thyroid normal size, non-tender, without nodularity Heart: regular rate & rhythm, no murmur, no gallops, S-1 normal, and S-2 normal Lungs: chest symmetric with normal AP diameter, no chest deformities noted, no chest wall tenderness, lungs clear to auscultation Pulses: carotid=2/4 w/o bruits Abdomen: abdomen soft, non-tender, normal bowel sounds, and no masses or organomegaly Back: back symmetric, no curvature, no costovertebral angle tenderness, range of motion is normal Extremities: less than 2 second capillary refill, no joint deformities, effusion, or inflammation Neuro Exam: alert & oriented x 3 with fluent speech, no focal motor/sensory deficits, gait normal, reflexes normal and symmetric Skin: skin color, texture, turgor are normal, no rashes or significant lesions Assessment and Plan Wellness examination (Primary) Iron deficiency - CBC WITH WBC DIFFERENTIAL AND ANEMIA REFLEX WORKUP; Future; Expected date: 03/14/2023 - FERRITIN; Future; Expected date: 03/14/2023 - VITAMIN B12; Future; Expected date: 03/14/2023 - VITAMIN B1 (THIAMINE), BLOOD, LC/MS/MS; Future; Expected date: 03/14/2023 Arthralgia, unspecified joint - CK; Future; Expected date: 03/14/2023 - ERYTHROCYTE SEDIMENTATION RATE (ESR); Future; Expected date: 03/14/2023 - ANTINUCLEAR ANTIBODY (RHODA) EIA SCREEN WITH REFLEX AB QUANT; Future; Expected date: 03/14/2023 - RHEUMATOID FACTOR; Future; Expected date: 03/14/2023 Malaise and fatigue - 25-HYDROXY VITAMIN D; Future; Expected date: 03/14/2023 - TSH WITH FREE T4 IF INDICATED; Future; Expected date: 03/14/2023 - FOLIC ACID; Future; Expected date: 03/14/2023 Depression with anxiety - FLUoxetine HCl 40 MG Oral Capsule (PROzac); Take 1 Capsule by mouth in the morning. Panic attacks - busPIRone HCl 15 MG Oral Tablet (Buspar); Take one tab by mouth up to three times a day Psychophysiological insomnia - traZODone HCl 50 MG Oral Tablet (Desyrel); One half to one whole tab by mouth at bedtime. After one week if not sleeping then can increase to one and a half tabs. At bedtime. Eczema, unspecified type - metroNIDAZOLE 1 % External Gel (Metrogel); Apply topically to affected area 2 times a day. To affected area. Wrap-Up Bump dose of fluoxetine and the buspar Add trazadone for sleep Stronger secondary m ed for eczmean d adding bio oil coat at bedtime Monitor bp Time: I spent a total of 30-39 minutes (exact time 32 mins) on the date of service in preparation, delivery, and documentation of the care provided to Nimco Weber excluding any time spent in the performance of separately billed services. Millicent Kebede PA-C 03/14/2023 3:21 PM documented in this encounter Nursing Notes * Michelle Briones CCMA - 03/14/2023 2:54 PM EST Nimco Weber is a 37 year old female who presents today for Chief Complaint Patient presents with Eczema Pt states that she is having eczema on face, physical, discuss anexity meds,cold sweats at night documented in this encounter Plan of Treatment Upcoming Encounters Date Type Department Care Team (Late st Contact Info) Description 03/14/2023 4:00 PM EST Laboratory Laboratory, [facility] [address] [place] [facility] [place] [address] [facility] [address] [facility], [place] [id number] Arrived 04/11/2023 3:00 PM EST Office Visit Family [facility], [place] [address] [place] [facility] [address] Millicent Kebede PA-C [address] [place] [address] Scheduled Orders Name Type Priority Associated Diagnoses Orde r Schedule CBC WITH WBC DIFFERENTIAL AND ANEMIA REFLEX WORKUP Lab Routine Iron deficiency Expected: 03/14/2023 (Approximate), Expires: 03/14/2024 FERRITIN Lab Routine Iron deficiency Expected: 03/14/2023 (Approximate), Expires: 03/13/2024 VITAMIN B12 Lab Routine Iron deficiency Expected: 03/14/2023 (Approximate), Expires: 03/13/2024 VITAMIN B1 (THIAMINE), BLOOD, LC/MS/MS Lab Routine Iron deficiency Expected: 03/14/2023, Expires: 03/14/2024 CK Lab Routine Arthralgia, unspecified joint Expected: 03/14/2023 (Approximate), Expires: 03/13/2024 ERYTHROCYTE SEDIMENTATION RATE (ESR) Lab Routine Arthralgia, unspecified joint Expected: 03/14/2023 (Approximate), Expires: 03/13/2024 ANTINUCLEAR ANTIBODY (RHODA) EIA SCREEN WITH REFLEX AB QUANT Lab Routine Arthralgia, unspecified joint Expected: 03/14/2023 (Approximate), Expires: 03/13/2024 RHEUMATOID FACTOR Lab Routine Arthralgia, unspecified joint Expected: 03/14/2023 (Approximate), Expires: 03/13/2024 25-HYDROXY VITAMIN D Lab Routine Malaise and fatigue Expected: 03/14/2023 (Approximate), Expires: 03/13/2024 TSH WITH FREE T4 IF INDICATED Lab Routine Malaise and fatigue Expected: 03/14/2023 (Approximate), Expires: 03/13/2024 FOLIC ACID Lab Routine Malaise and fatigue Expected: 03/14/2023 (Approximate), Expires: 03/13/2024 Health Maintenance Due Date Last Done Comments [...] Not on filedocumented as of this encounter Visit Diagnoses Diagnosis Wellness examination- Primary Iron deficiency Iron deficiency anemia, unspecified Arthralgia, unspecified joint Malaise and fatigue Other malaise and fatigue Depression with anxiety Dysthymic disorder Panic attacks Panic disorder without agoraphobia Psychophysiological insomnia Persistent disorder of initiating or maintaining sleep Eczema, unspecified type documented in this encounter Care Teams Printing Bindery Assistant Relationship Specialty Start Date End Date Louie Montilla DO [address] [address] PCP - General Family Medicine 04/19/21 documented as of this encounter
--- OUTSIDE RECORDS SUMMARY | 2023-05-05 18:57 | External Medical Summary ---
Author Name Unknown Address Unknown Organization K01:LABORATORY [facility] - [facility] [address] [place] [id number] Laboratory Report Ordering Provider Test Date Status MEAGAN ROBINS 03/14/2023 15:51:08 Final Observation Date Value Abnormality Reference (Units ) Status WBC, Total 03/14/2023 15:51:08 10.93 Above high normal 4 .00-10.80 (K/uL) Final RBC 03/14/2023 15:51:08 4.20 3.85-5.15 (M/uL) Final Hemoglobin 03/14/2023 15:51:08 13.9 12.0-15.3 (g/dL) Final Anemia reflex testing trigge rs on a HGB < 12.0 for Females and HGB < 13.0 for Males in accordance with the WHO Anemia Guidelines
Anemia reflex testing triggers on a HGB < 12.0 for Females and HGB < 13.0 for Males in accordance with the WHO Anemia Guidelines HCT 03/14/2023 15:51:08 41.1 36.0-45.2 (%) Final MCV 03/14/2023 15:51:08 97.9 81.5-97.5 (fL) Final MCH 03/14/2023 15:51:08 33.1 27.0-34.0 (pg) Final MCHC 03/14/2023 15:51:08 33.8 32.0-36.0 (g/dL) Final RDW 03/14/2023 15:51:08 12.3 11.5-15.5 (%) Final Platelets 03/14/2023 15:51:08 333 140-400 (K /uL) Final MPV 03/14/2023 15:51:08 9.3 6.6-11.1 ( fL) Final Nucleated erythrocytes/100 leukocytes [Ratio] in Blood by Automated count 03/14/2023 15:51:08 0 <=0 (/100 WBCs) [facility] Performing Location LABORATORY [facility] - [address] [facility] [address]
--- OUTSIDE RECORDS SUMMARY | 2023-05-05 18:57 | External Medical Summary | Summary of Care ---
Author Name Unknown Organization [facility] Address [address] [place] [place] [address] Phone [phone] Care Team Providers Care Hand Booked Folder And Stitcher Name Role Phone Louie Montilla Attjoycelyn DO Primary Care Provider Reason for Visit * Reason Comments Outpatient Testing Encounter Details Date Type Department Care Team (Late st Contact Info) Description 03/14/2023 4:00 PM EST Laboratory Laboratory, [place] [address] [place] [phone] [facility] [address], [place] [phone] Iron deficiency; Arthralgia, unspecified joint; Malaise and [...] affected area. 60 g 11 03/14/2023 Active documented as of this encounter (statuses [...] Overview: Anesthesia consult scheduled - 02/18/2014 2:30pm [facility], order in Epic Paperwork [id number]/5/2014 Jessica Kimball, RN @36w3d: EFW 2500gm (25-50%); [...] contraceptive device 06/23/19 09 08/02/2010 OB [place] 01/22/200804/10/ 9 Hemorrhoids 01/08/2008 08/02/2010 Overview: Proctofoam and Lidocaine 5 % Asthma, allergic 12/31/2007 08/31/2009 INFORMATION- Surveillance 11/06/2007 02/01/2008 Overview: Anatomy scan at 17w4d by [facility] was limited heart,left toes,and genitalia secondary to position. Action/Plan/Outcome: Repeat in 8 weeks at f/u MFM appt showed symmetric growth and normal anatomy HBP PF 08/21/2007 08/21/2007 Overview: No insurance applying for MA Enroll in HBP once MA is active- Action/Plan/Outcome: Enrolled in P Von Willebrand's disease 08/21/200705/2023 Overview: Questionable dx of Von Willebrand's. Patient is unsure if she was dx with this or not. Action/Plan/Outcome: VW multifactor negative; Factor VIII antigen elevated on NOB labs. Being followed by [facility]; seen 11/05/07. To obtain previous records from childhood and f/u in 8 weeks. Referred to Heme, but no showed appointment. Dr. Huber will not see her again. Must make appointment with [facility] if desires future heme consult. 01/08/08 -- [...] on file documented as of this encounter Plan of Treatment Upcoming Encounters Date Type Department Care Team (Late st Contact Info) Description 04/11/2023 3:00 PM EST Office Visit [facility] [address] [place] [phone] Millicent Kebede PA-C [address] [place] [address] Pending Results Name Type Priority Associated Diagnoses Date /Time CBC WITH WBC DIFFERENTIAL AND ANEMIA REFLEX WORKUP Lab Routine Iron deficiency 03/14/2023 3:51 PM EST FERRITIN Lab Routine Iron deficiency 03/14/2023 3:51 PM EST VITAMIN B12 Lab Routine Iron deficiency 03/14/2023 3:51 PM EST VITAMIN B1 (THIAMINE), BLOOD, LC/MS/MS Lab Routine Iron deficiency 03/14/2023 3:51 PM EST CK Lab Routine Arthralgia, unspecified joint 03/14/2023 3:51 PM EST ERYTHROCYTE SEDIMENTATION RATE (ESR) Lab Routine Arthralgia, unspecified joint 03/14/2023 3:51 PM EST ANTINUCLEAR ANTIBODY (RHODA) EIA SCREEN WITH REFLEX AB QUANT Lab Routine Arthralgia, unspecified joint 03/14/2023 3:51 PM EST RHEUMATOID FACTOR Lab Routine Arthralgia, unspecified joint 03/14/2023 3:51 PM EST 25-HYDROXY VITAMIN D Lab Routine Malaise and fatigue 03/14/2023 3:51 PM EST TSH WITH FREE T4 IF INDICATED Lab Routine Malaise and fatigue 03/14/2023 3:51 PM EST FOLIC ACID Lab Routine Malaise and fatigue 03/14/2023 3:51 PM EST ANEMIA CBC Lab Routine Iron deficiency 03/14/2023 3:51 PM EST DIFFERENTIAL, AUTOMATED Lab Routine Iron deficiency 03/14/2023 3:51 PM EST ANEMIA REFLEX CHEMISTRY HOLD Lab Routine Iron deficiency 03/14/2023 3:51 PM EST ANTINUCLEAR ANTIBODY (RHODA) SCREEN, CUCO Lab Routine Arthralgia, unspecified joint 03/14/2023 3:51 PM EST Health Maintenance Due Date Last Done Comments [...] as of this encounter Visit Diagnoses Diagnosis Iron deficiency Iron deficiency anemia, unspecified Arthralgia, unspecified joint Malaise and fatigue Other malaise and fatigue documented in this encounter Care Teams Hand Booked Folder And Stitcher Relationship Specialty Start Date End Date Louie Montilla DO [address] [place] [address] PCP - General Family Medicine 04/19/21 documented as of this encounter
--- OUTSIDE RECORDS SUMMARY | 2023-05-05 18:57 | External Medical Summary ---
Author Name Unknown Address Unknown Organization : Laboratory Report Ordering Provider Test Date Status MEAGAN ROBINS 03/14/2023 15:51:08 Final Observation Date Value Abnormality Reference (Units ) Status Thiamine [Moles/volume] in Blood 03/14/2023 15:51:08 153 78-185 (nmol/L) Final Vitamin supplementation with in 24 hours prior to
blood draw may affect the accuracy of the results.
This test was developed and its analytical performance
characteristics have been determined by [facility] [place], [place]. It has
not been cleared or approved by the U.S. Food and Drug
Administration. This assay has been validated pursuant
to the CLIA regulations and is used for clinical
purposes.

Test Performed at:
[facility]
[address] [facility] [place] [address]
Reji Hollins M.D., Ph.D.,Director of Laboratories Performing Location
--- OUTSIDE RECORDS SUMMARY | 2023-05-05 18:57 | External Medical Summary ---
Author Name Unknown Address Unknown Organization K01:LABORATORY [facility] - [address] [place] [address] Laboratory Report Ordering Provider Test Date Status MEAGAN ROBINS 03/14/2023 15:51:08 Final Observation Date Value Abnormality Reference (Units ) Status Ferritin 03/14/2023 15:51:08 560 Above high normal 13 -150 (ng/mL) Final Performing Location LABORATORY [facility] - [address] [place] [address]
--- OUTSIDE RECORDS SUMMARY | 2023-05-05 18:58 | External Medical Summary | Summary of Care ---
Author Name Unknown Organization [facility] Address [address] [facility] [place] [address] Phone [phone] Care Team Providers Care Floor Molder Name Role Phone Louie Montilla DO Primary Care Provider Reason for Visit * Reason Comments Claims Technician New Encounter Details Date Type Department Care Team (Late st Contact Info) Description 03/12/2023 3:30 PM EST Office Visit Gynecology/Obstetri angela Murcia [address] [place] [address] Adriana Jaimes CRNP [address] [place] [place] [address] Encounter for annual routine gynecological examination*; Elevated BP without diagnosis of hypertension Allergies Active Allergy Reactions Criticality Noted Date Comments Amoxicillin Hives 07/14/2013 documented as of this encounter (statuses as of 03/12/2023) Medications Medication Sig Dispensed Refills Start Date End Date Status COLACE 100 MG PO CAPS daily 0 Active Esomeprazole Magnesium 20 MG Oral Capsule Delayed Release (NexIUM) Take 1 Capsule by mouth daily before breakfast. 0 Active Aspirin 325 MG Oral Tablet Take by mouth 650 mg as needed . 0 Active NSS 0.9 % SOLN 500 mL with Iron Dextran 50 MG/ML SOLN 1,000 mg Administer intravenously 1,000 mg . 0 Active Fluconazole 150 MG Oral Tablet (Diflucan) Take diflucan 150 mg one tab once and then ok to repeat in 3 days if symptom persists 2 Tablet 0 07/15/2022 Active FLUoxetine HCl 10 MG Oral Capsule (PROzac)Indicati ons:Adjustment disorder with depressed mood 1 cap daily x 7 days then 2 caps daily. May take in AM or PM 50 Capsule 0 02/12/2023 Active FLUoxetine HCl 20 MG Oral Capsule (PROzac)Indicati ons:Adjustment disorder with depressed mood Take 1 Capsule by mouth in the morning. 90 Capsule 3 02/12/2023 Active busPIRone HCl 10 MG Oral Tablet (Buspar)Indicati ons:Anxiety state,Panic attacks 1 tab up to 3 times daily as needed for severe anxiety 40 Tablet 1 02/12/2023 Active Hydrocortisone 2.5 % External CreamIndications :Eczema, unspecified type Apply topically to affected area 3 times a day as needed for Other (ezcema). To affected area of face 30 g 5 02/12/2023 Active Multiple Vitamins-Mineral s (MULTI-VITAMIN GUMMIES) chewable tablet Take 1 Tab by mouth daily. 0 4 Discontinue d(Medicatio n List Clean Up) Calcium 250 MG CAPS Take by mouth. 0 4 Discontinue d(Medicatio n List Clean Up) pantoprazole (PROTONIX) 20 MG TBEC Take 20 mg by mouth as needed for Indigestion. 0 4 Discontinue d(Medicatio n List Clean Up) ranitidine (ZANTAC) 150 MG Tablet Take 150 mg by mouth as needed. 0 4 Discontinue d(Medicatio n List Clean Up) nicotine (NICOTINE STEP 1) 21 MG/24HR PatchIndications :Tobacco use disorder Place 1 Patch topically on the skin daily. 28 Patch 0 07/09/2018 4 Discontinue d(Medicatio n List Clean Up) documented as of this encounter (statuses as of 03/12/2023) Active Problems Problem Noted Date Diagnosed Date Iron deficiency 04/09/2018 S/P gastric bypass 05/26/2017 Iron deficiency anemia due to chronic blood loss 06/11/2016 Tobacco use documented as of this encounter (statuses as of 03/12/2023) Resolved Problems Problem Noted Date Diagnosed Date Resolved Date Obesity, Class I, BMI 30.0-3 4.9 (see [...] Overview: Anesthesia consult scheduled - 02/18/2014 2:30pm [facility], order in [employer] Paperwork [id number]/5/2014 Jessica Kimball, RN @36w3d: EFW 2500gm (25-50%); [...] 10,000 GBS Oligohydramnios, antepartum 10/10/2010 03/07/2011 Overview: 8/: HA-9cm- 5%; MFM consult 10/25: MFM recommendation: [...] 02/01/2008 Overview: Anatomy scan at 17w4d by [facility] was limited heart,left toes,and genitalia secondary [...] elevated on NOB labs. Being followed by [facility]; seen 11/05/07. To obtain previous records from childhood and f/u in 8 weeks. Referred to Heme, but no showed appointment. Dr. Huber will not see her again. Must make appointment with [facility] if desires future heme consult. 01/08/08 -- Heme consult -- no evidence of disease. Tobacco use disorder 08/21/2007 009 Overview: Smoking 6 cigs per day. Action/Plan/Outcome: Advise cessation every visit. documented as of this encounter (statuses as of 03/12/2023) Immunizations Name Administration Dates Next Due Seasonal [...] Sign Reading Time Taken Comments Blood Pressure 150/100 03/12/2023 3:30 PM EST Pulse - - Temperature - - Respiratory Rate - - Oxygen Saturation - - Inhaled Oxygen Concentration - - Weight 78 kg (172 lb) 03/12/2023 3:30 PM EST Height 160 cm (5' 3") 03/12/2023 3:30 PM EST Body Mass Index 30.47 03/12/2023 3:30 PM EST documented in this encounter Progress Notes * Adriana Jaimes CRNP - 03/12/2023 3:43 PM EST HPI: The patient is a 37 year old who presents for annual gynecological examination. Patient has no POSTING SPECIALIST or complaints. Patient's last menstrual period was 10/25/2017. Patient had a hysterectomy for menorrhagia, ovariesspared. Normal pap hx. Had neg Gc/Ct testing since with a new partner; declines additional screening. BP elevated today - attributes to current divorce. Denies MENDOZA, chest pain. OB HISTORY: OB History Para Term AB Living 3 3 3 0 0 3 SAB IAB Ectopic Multiple Live Births 0 0 0 0 3 # Outcome Date GA Lbr Anderson/2nd Weight Sex Delivery Anes PTL Lv 3 Term 03/04/14 39w0d 3.29 kg (7 lb 4.1 oz) F CS-LTranv Spinal N WALE Comments: Breech presentation Complications: Breech presentation 2 Term 02/23/11 40w0d 07:46 3.856 kg (8 lb 8 oz) M Vag-Spont EPI N WALE Comments: Perineal/1st Degree, FOB#1 1 Term 04/10/08 40w0d 21:31 3.657 kg (8 lb 1 oz) F VACUUM, LOW EPI WALE Comments: perineal 2nd degree; vacuum assist, FOB#1 Past Medical History: Diagnosis Date ?Heme disorder diagnosed at [place] Asthma Albuterol PRN Colon polyp Depression celexa Pneumonia due to organism 03/10/1997 admitted to hospital S/P gastric bypass 05/26/2017 Tobacco use Past Surgical History: Procedure Laterality Date COLONOSCOPY, DIAGNOSTIC (RECTUM) 11/17/2015 TVA polyp, repeat 6 mo/COLONOSCOPY FLEXIBLE PROXIMAL DIAGNOSTIC performed by Elizabeth Conti DO at ENDOSCOPY [facility] COLONOSCOPY, DIAGNOSTIC (RECTUM) 05/27/2016 benign juvenile polyp, repeat 1 yr/COLONOSCOPY FLEXIBLE PROXIMAL DIAGNOSTIC performed by Elizabeth Conti DO at ENDOSCOPY [facility] COLONOSCOPY, DIAGNOSTIC (RECTUM) 12/05/2017 adenomatous polyp, repeat 3 yrs/COLONOSCOPY FLEXIBLE PROXIMAL DIAGNOSTIC performed by Elizabeth Conti DO at [facility] COLONOSCOPY, DIAGNOSTIC (RECTUM) 04/19/2021 normal / COLONOSCOPY FLEXIBLE PROXIMAL DIAGNOSTIC performed by Paolo Zamudio MD at ENDOSCOPY [facility] DENTAL SURGERY PROCEDURE NEC wisdom EGD, FLEXIBLE, DIAGNOSTIC 11/17/2015 normal/ESOPHAGOGASTRODUODENOSCOPY (EGD), FLEXIBLE, TRANSORAL, DIAGNOSTIC performed by Elizabeth Conti DO at ENDOSCOPY [facility] EGD, FLEXIBLE, DIAGNOSTIC 04/19/2021 anastomotic ulcer, repeat 8 wks / ESOPHAGOGASTRODUODENOSCOPY (EGD), FLEXIBLE, TRANSORAL, DIAGNOSTICperformed by Paolo Zamudio MD at ENDOSCOPY [facility] GASTRIC BYPASS FOR OBESITY 01/2015 HYSTEROSCOPY;ENDOMETRIAL ABLAT N/A 12/26/2016 HYSTEROSCOPY ENDOMETRIAL ABLATION performed by Michael Palma MD at OR [facility] PARTIAL HYSTERECTOMY heavy menses; ovaries spared REMOVAL OF APPENDIX 2002 done at [facility]. Current Outpatient Medications Medication Sig Dispense Refill Esomeprazole Magnesium 20 MG Oral Capsule Delayed Release (NexIUM) Take 1 Capsule by mouth daily before breakfast. FLUoxetine HCl 10 MG Oral Capsule (PROzac) 1 cap daily x 7 days then 2 caps daily. May take in AM or PM 50 Capsule 0 FLUoxetine HCl 20 MG Oral Capsule (PROzac) Take 1 Capsule by mouth in the morning. 90 Capsule 3 busPIRone HCl 10 MG Oral Tablet (Buspar) 1 tab up to 3 times daily as needed for severe anxiety 40 Tablet 1 Hydrocortisone 2.5 % External Cream Apply topically to affected area 3 times a day as needed for Other (ezcema). To affected area of face 30 g 5 COLACE 100 MG PO CAPS daily Aspirin 325 MG Oral Tablet Take by mouth 650 mg as needed . NSS 0.9 % SOLN 500 mL with Iron Dextran 50 MG/ML SOLN 1,000 mg Administer intravenously 1,000 mg . Fluconazole 150 MG Oral Tablet (Diflucan) Take diflucan 150 mg one tab once and then ok to repeat in 3 days if symptom persists 2 Tablet 0 No current facility-administered medications for this visit. Review of patient's allergies indicates: Allergen Reactions Amoxicillin Hives Social History Socioeconomic History Marital status: Spouse name: Alex Weber Number of children: Not on file Years of education: 14 Highest education level: Not on file Occupational History Occupation: CLIENT SERVICES VICE PRESIDENT Employer: [employer] Tobacco Use Smoking status: Some Days Packs/day: 0.20 Years: 15.00 Additional pack years: 0.00 Total pack years: 3.00 Types: Cigarettes Smokeless tobacco: Never Tobacco comments: pt quits during then goes back to it Substance and Sexual Activity Alcohol use: Yes Comment: occ Drug use: No Comment: denies Sexual activity: Yes Partners: Male control/protection: Surgical Comment: vasectomy Other Topics Concern Not on file Social History Narrative Social Determinants of Health Financial Resource Strain: Not on file Food Insecurity: Not on file Transportation Needs: Not on file Physical Activity: Not on file Stress: Not on file Social Connections: Not on file Intimate Partner Violence: Not on file Housing Stability: Not on file Family History Problem Relation Age of Onset COPD Mother Heart attack Father Kidney disease Sister kidney failure, no dialysis No Past Hx Brother Heart Disorder Grandmother (Maternal) Hypertension Grandmother (Maternal) Heart Disorder Grandfather (Maternal) Hypertension Grandfather (Maternal) Cancer Grandmother (Paternal) No Past Hx Daughter No Past Hx Son Diabetes Uncle (Unspecified) Breast Cancer Other great aunt FAMILY HISTORY:No sewer and inspector, colon cancer or blood clots. ROS EXAM: CONSTITUTIONAL: No change in weight, No weakness, and No fatigue BREASTS: No new breast lumps or masses, No severe breast pain, No nipple discharge, and No recent change in shape/color FEMALE: No dysuria, No frequency, No incontinence, No urgency, and No vaginal discharge PHYSICAL EXAM BP 150/100 | Ht 1.6 m (5' 3") | Wt 78 kg (172 lb) | LMP 10/25/2017 | BMI 30.47 kg/m | BSA 1.86 m Studio Operations Engineer In Charge Documentation Provider requested storekeeper steward. Name of storekeeper steward: Jasmin Black LPN General: No acute distress, sitting comfortably, normal interaction Psych: appropriate affect and insight. No depressive symptoms. Neck: supple, no adenopathy, thyroid normal size, non-tender, without nodularity Abdomen: abdomen soft, non-tender, no masses or organomegaly, and no rebound or guarding Breasts: Inspection negative No nipple retraction or dimpling No nipple discharge or bleeding No axillary or supraclavicular adenopathy Normal to palpation without dominant masses Taught monthly breast self examination Inguinal Nodes: No palpable nodes. External: normal anatomy. Vagina: pink and rugated and small white discharge without froth or odor. Cervix: surgically absent. Uterus: surgically absent. Adnexa: no palpable mass bilaterally and non-tender bilaterally Rectal: deferred. Extremeties: No deep calf tenderness, bilaterally Neurological: Grossly intact. IMPRESSION/PLAN: 1. Encounter for annual routine gynecological examination Pap not indicated, s/p hysterectomy 2. Elevated BP without diagnosis of hypertension Stable condition and asymptomatic - advised to follow up with PCP as soon as possible for recheck. Follow Up: Return in about 1 year (around 03/12/2024) for annual exam. | For: annual exam TO [place] 03/12/23 documented in this encounter Nursing Notes * Jasmin Black LPN - 03/12/2023 3:26 PM EST Patient identified Nimco Weber by name and date of . Patient here for yearly exam. Complaints: cold sweats, night sweats Last pap: ? Last Mammogram: na Last Dexa: na Last Colonoscopy: 2*12/29 Type of Contraception: hysterectomy Pt here for chlamydia screen. no Have you heard about the Gardasil Vaccine? no Would you be interested in discussing this with your provider? no Does the patient have an advance directed? No, Advance Directive brochure offered, patient declined. My [employer] is a way you can talk to your provider online through e-mail. May I activate it for you? ALREADY ACTIVE Do you need any refills while you are here? no Jasmin Black LPN 03/12/2023 3:26 PM documented in this encounter Plan of Treatment Upcoming Encounters Date Type Department Care Team (Late st Contact Info) Description 03/14/2023 3:20 PM EST Office Visit [facility] [address] [place] [address] Millicent Kebede PA-C [address], [place] [phone] Health Maintenance Due Date Last Done Comments Hepatitis B (1 of 3 - 3-dose series) 1987 COVID-19 Vaccine (#1) 01/30/1988 Pneumococcal Vaccine: Pediatrics (0 to 5 Years) and At-Risk Patients (6 to 64 Years) (1 - PCV) 07/29/1993 Pap Smear 07/14/2016 07/14/2013, 06/03/2011, 08/02/2010, Additional history exists Cervical Cancer Screening 07/29/2017 HPV/Co-Test 07/29/2017 Depression Screening 05/16/2019 05/15/2018 Influenza Vaccine (FLU shot) (#1) 2022 12/28/2020, 01/26/2014 Diabetes Screening 12/26/2023 12/25/2020, 0 11/01/2015, 07/14/2013, Additional history exists DTaP,Tdap,and Td Vaccines (2 - Td or Tdap) 01/27/2024 01/26/2014 COLONOSCOPY-EVERY 3 YRS AGES 18-100 04/19/2024 04/19/2021, 04/19/2021, 12/05/2017, Additional history exists GARDASIL-HPV IMMUNIZATION SERIES Aged Out No longer eligible based on patient's age to complete this topic MENINGOCOCCAL (MENACTRA/MENVEO) Aged Out No longer eligible based on patient's age to complete this topic documented as of this encounter Medical Devices Not on filedocumented as of this encounter Visit Diagnoses Diagnosis Encounter for annual routine gynecological examination- Primary Elevated BP without diagnosis of hypertension documented in this encounter Care Teams Floor Molder Relationship Specialty Start Date End Date Louie Montilla DO [address] [place] [address] PCP - General Family Medicine 04/19/21 documented as of this encounter
--- OUTSIDE RECORDS SUMMARY | 2023-05-05 18:58 | External Medical Summary ---
Author Name Unknown Address Unknown Organization [id number]:LABORATORY [facility] - [address] [place] [address] Laboratory Report Ordering Provider Test Date Status MEAGAN ROBINS 03/14/2023 15:51:08 Final Observation Date Value Abnormality Reference (Units ) Status Erythrocyte sedimentation rate by Photometric method 03/14/2023 15:51:08 3 <20 (mm/hour) Final Performing Location [facility] - [address] [place] [address]
--- OUTSIDE RECORDS SUMMARY | 2023-05-05 18:58 | External Medical Summary ---
Author Name Unknown Address Unknown Organization K01:LAB[facility]ATORY [facility] - [address] [place] [address] Laboratory Report Ordering Provider Test Date Status MEAGAN ROBINS 03/14/2023 15:51:08 Final Observation Date Value Abnormality Reference (Units ) Status CK 03/14/2023 15:51:08 148 26-192 (U/ L) Final Performing Location LABORATORY [facility] - [address] [place] [address]
--- OUTSIDE RECORDS SUMMARY | 2023-05-05 18:58 | External Medical Summary | Summary of Care ---
Author Name Unknown Organization [facility] Address [address] [address] Phone [phone] Care Team Providers Care Survey Rodman Name Role Phone Louie Montilla DO Primary Care Provider Reason for Visit * Reason Onset Date Comments FYI 03/13/2023 Encounter Details Date Type Department Care Team (Late st Contact Info) Description 03/13/2023 Telephone [facility] [address] [place] [facility] [place] [address] Louie Montilla DO [address] [facility] [address] [place] [address] Allergies Active Allergy Reactions Criticality Noted Date Comments Amoxicillin Hives 07/14/2013 documented as of this encounter (statuses as of 03/13/2023) Medications Medication Sig Dispensed Refills Start Date [...] Active FLUoxetine HCl 20 MG Oral Capsule (PROzac)Indication s:Adjustment disorder with depressed mood Take 1 Capsule by mouth in the morning. 90 Capsule 3 02/12/2023 Active busPIRone HCl 10 MG Oral Tablet (Buspar)Indication s:Anxiety state,Panic attacks 1 tab up to 3 times daily as needed for severe anxiety 40 Tablet 1 02/12/2023 Active Hydrocortisone 2.5 % External CreamIndications:E czema, unspecified type Apply topically to affected area 3 times a day as needed for Other (ezcema). To affected area of face 30 g 5 02/12/2023 Active documented as of this encounter (statuses as of 03/13/2023) Active Problems Problem Noted Date Diagnosed Date Iron deficiency 04/09/2018 S/P gastric bypass 05/26/2017 Iron deficiency anemia due to chronic blood loss 06/11/2016 Tobacco use documented as of this encounter (statuses as of 03/13/2023) Resolved Problems Problem Noted Date Diagnosed Date [...] Overview: Anesthesia consult scheduled - 02/18/2014 2:30pm [facility], order in [employer] Paperwork /5/2014 Jessica Kimball RN @36w3d: EFW 2500gm (25-50%); HA 10.3cm [...] GBS Oligohydramnios, antepartum 10/10/2010 03/07/2011 Overview: 10/10: AH-9cm- 5%; MFM consult 10/25: MFM recommendation: Follow [...] device 06/23/19 09 08/02/2010 OB [place] 01/22/2008 02/200 9 Hemorrhoids 01/08/2008 08/02/2010 Overview: Proctofoam and Lidocaine 5 % Asthma, allergic 12/31/2007 08/31/2009 INFORMATION- Surveillance 11/06/2007 02/01/2008 Overview: Anatomy scan at 17w4d by [facility] was limited heart,left toes,and genitalia secondary to position. Action/Plan/Outcome: Repeat in 8 weeks at f/u [facility] appt showed symmetric growth and normal anatomy HBP PF 08/21/2007 08/21/2007 Overview: No insurance applying for MA Enroll in HBP once MA is active- Action/Plan/Outcome: Enrolled in HBP Von Willebrand's disease 08/21/200705/2023 Overview: Questionable dx of Von Willebrand's. Patient is unsure if she was dx with this or not. Action/Plan/Outcome: VW multifactor negative; Factor VIII antigen elevated on NOB labs. Being followed by [facility]; seen 11/05/07. To obtain previous records from childhood and f/u in 8 weeks. Referred to Heme, but no showed appointment. Dr. Huber will not see her again. Must make appointment with [facility] if desires future heme consult. 01/08/08 -- Heme consult -- no evidence of disease. Tobacco use disorder 08/21/2007 009 Overview: Smoking 6 cigs per day. Action/Plan/Outcome: Advise cessation every visit. documented as of this encounter (statuses as of 03/13/2023) Immunizations Name Administration Dates Next Due Seasonal [...] as of this encounter Miscellaneous Notes * Telephone Encounter - Gypsy Goins LPN - 03/13/2023 3:05 PM EST Patient scheduled for appt tomorrow already. * Telephone Encounter - Aleta Acosta LPN - 03/13/2023 1:18 PM EST left message on machine for pt to call office * Telephone Encounter - Alex Pearce MD - 03/13/2023 12:21 PM EST She should make apt to be seen in office within next month. Reduce salt intake. * Telephone Encounter - Ana Fung OSA - 03/13/2023 9:13 AM EST Patient wanted the dr to know she went to the obstetrics gynecology physician. And when they took her bp it was 155/100 documented in this encounter Plan of Treatment Upcoming Encounters Date Type Department Care Team (Late st Contact Info) Description 03/14/2023 3:20 PM EST Office Visit [facility] [address] [place] [phone] Millicent Kebede PA-C [address] [place], [place] [phone] Health Maintenance Due Date Last Done Comments [...] Cancer Screening Discontinued Pap Smear Discontinued 07/14/2013, 03/2011, 08/02/2010, Additional history exists GARDASIL-HPV IMMUNIZATION SERIES Aged Out No longer eligible based on patient's age to complete this topic HPV/Co-Test Discontinued MENINGOCOCCAL (MENACTRA/MENVEO) Aged Out No longer eligible based on patient's age to complete this topic documented as of this encounter Medical Devices Not on filedocumented as of this encounter Care Teams Survey Rodman Relationship Specialty Start Date End Date Louie Montilla DO [address] [facility] [place] [address] PCP - General Family Medicine 04/19/21 documented as of this encounter
--- OUTSIDE RECORDS SUMMARY | 2023-05-05 18:59 | External Medical Summary | Summary of Care ---
Author Name Unknown Organization [facility] Address [address] [place] [facility] [place] [address] Phone [phone] Care Team Providers Care Project Management Director Name Role Phone Louie Montilla DO Primary Care Provider Encounter Details Date Type Department Care Team (Late st Contact Info) Description 03/11/2023 Telephone Gynecology/Obstetrics [facility] [address] [place] [address] Adriana aJimes CRNP [address] [place] [address] Allergies Active Allergy Reactions Criticality Noted Date Comments Amoxicillin Hives 07/14/2013 documented as of this encounter (statuses as of 03/11/2023) Medications Medication Sig Dispensed Refills Start Date End Date Status COLACE 100 MG PO CAPS daily 0 Active Multiple Vitamins-Minerals (MULTI-VITAMIN GUMMIES) chewable tablet Take 1 Tab by mouth daily. 0 Active Calcium 250 MG CAPS Take by mouth. 0 Active pantoprazole (PROTONIX) 20 MG TBEC Take 20 mg by mouth as needed for Indigestion. 0 Active ranitidine (ZANTAC) 150 MG Tablet Take 150 mg by mouth as needed. 0 Active nicotine (NICOTINE STEP 1) 21 MG/24HR PatchIndications:T obacco use disorder Place 1 Patch topically on the skin daily. 28 Patch 0 07/09/2018 Active Additional Information Patient not taking.Reported on 04/18/2021 Esomeprazole Magnesium 20 MG Oral Capsule Delayed Release (NexIUM) Take by mouth 20 mg daily before breakfast . 0 Active Aspirin 325 MG Oral Tablet [...] as of this encounter (statuses as of 03/11/2023) Active Problems Problem Noted Date Diagnosed Date Iron deficiency 04/09/2018 S/P gastric bypass 05/26/2017 Iron deficiency anemia due to chronic blood loss 06/11/2016 Von Willebrand's disease 08/21/2007 Overview: Questionable dx of Von Willebrand's. Patient is unsure if she was dx with this or not. Action/Plan/Outcome: VW multifactor negative; Factor VIII antigen elevated on NOB labs. Being followed by [facility]; seen 11/05/07. To obtain previous records from childhood and f/u in 8 weeks. Referred to Heme, but no showed appointment. Dr. Huber will not see her again. Must [place] appointment with [facility] if desires future heme consult. 01/08/08 -- Heme consult -- no evidence of disease. documented as of this encounter (statuses as of 03/11/2023) Resolved Problems Problem Noted Date Diagnosed Date [...] Overview: Anesthesia consult scheduled - 02/18/2014 2:30pm [facility], order in [facility] Paperwork [id number]/5/2014 Jessica Kimball RN @36w3d: EFW 2500gm (25-50%); [...] 10,000 GBS Oligohydramnios, antepartum 10/10/2010 03/07/2011 Overview: 8/3: HA-9cm- 5%; MFM consult 10/25: MFM recommendation: [...] 02/01/2008 Overview: Anatomy scan at 17w4d by MFM was limited heart,left toes,and genitalia secondary to position. Action/Plan/Outcome: Repeat in 8 weeks at f/u MFM appt showed symmetric growth and normal anatomy HBP PF 08/21/2007 08/21/2007 Overview: No insurance applying for MA Enroll in [facility] once MA is active- Action/Plan/Outcome: Enrolled in [facility] Tobacco use disorder 08/21/2007 009 Overview: Smoking 6 cigs per day. Action/Plan/Outcome: Advise cessation every visit. documented as of this encounter (statuses as of 03/11/2023) Immunizations Name Administration Dates Next Due Seasonal [...] encounter Miscellaneous Notes * Telephone Encounter - Eden Knight LPN - 03/11/2023 8:11 AM EST Provider schedule change. Patient appt moved from 03/11 at 11 am to 03/12 at 3:30pm with Samantha. valencia for patient to call office. documented in this encounter Plan of Treatment Upcoming Encounters Date Type Department Care Team (Late st Contact Info) Description 03/12/2023 3:30 PM EST Office Visit Gynecology/Obstetrics [facility] [address] [place] [address] Adriana Jaimes CRNP [address] [place] [address] 03/14/2023 3:20 PM EST Office Visit [facility] [address] [place] [phone] Millicent Kebede PA-C [address] [place] [address] Health Maintenance Due Date Last Done Comments Hepatitis B (1 of 3 - 3-dose series) 1987 COVID-19 Vaccine (#1) 01/30/1988 Pneumococcal Vaccine: Pediatrics (0 to 5 Years) and At-Risk Patients (6 to 64 Years) (1 - PCV) 07/29/1993 Pap Smear 07/14/2016 07/14/2013, 06/0 03/2011, 08/02/2010, Additional history exists Cervical Cancer Screening [...] filedocumented as of this encounter Care Teams Project Management Director Relationship Specialty Start Date End Date Louie Montilla DO [address] [place] [address] PCP - General Family Medicine 04/19/21 documented as of this encounter"
--- OUTSIDE RECORDS SUMMARY | 2023-05-06 03:05 | External Medical Summary | Summary of Care ---
Author Name Unknown Organization [facility] Address [address] [facility] [address] Phone [phone] Care Team Providers Care Director Consumer Name Role Phone Louie Montilla Segundo DO Primary Care Provider Reason for Visit * Reason Comments eRx-Medication Refill Encounter Details Date Type Department Care Team (Late st Contact Info) Description 03/07/2023 Refill [facility] [address] [place] [address] Alex Pearce MD [address] [place] [address] Adjustment disorder with depressed mood Allergies Active Allergy Reactions Criticality Noted Date Comments Amoxicillin Hives 07/14/2013 documented as of this encounter (statuses as of 03/07/2023) Medications Medication Sig Dispensed Refills Start Date [...] as of this encounter (statuses as of 03/07/2023) Active Problems Problem Noted Date Diagnosed Date Iron deficiency 04/09/2018 S/P gastric bypass 05/26/2017 Iron deficiency anemia due to chronic blood loss 06/11/2016 Von Willebrand's disease 08/21/2007 Overview: Questionable dx of Von Willebrand's. Patient is unsure if she was dx with this or not. Action/Plan/Outcome: VW multifactor negative; Factor VIII antigen elevated on NOB labs. Being followed by [facility]; seen 11/05/07. To obtain previous records from childhood and f/u in 8 weeks. Referred to Heme, but no showed appointment. Dr. Huber will not see her again. Must make appointment with [facility] if desires future heme consult. 01/08/08 -- Heme consult -- no evidence of disease. documented as of this encounter (statuses as of 03/07/2023) Resolved Problems Problem Noted Date Diagnosed Date [...] Overview: Anesthesia consult scheduled - 02/18/2014 2:30pm [facility], order in [facility] Paperwork [id number]/5/2014 Jessica Kimball, RN @36w3d: EFW 2500gm (25-50%); [...] 02/01/2008 Overview: Anatomy scan at 17w4d by MF was limited heart,left toes,and genitalia secondary to [...] as of this encounter (statuses as of 03/07/2023) Immunizations Name Administration Dates Next Due Seasonal [...] encounter Miscellaneous Notes * Telephone Encounter - Candy Schwarz [facility] - 03/07/2023 1:52 PM ESTRefused Prescriptions: Disp Refills FLUoxetine HCl 10 MG Oral Capsule (PROzac) 50 Cap*0 Sig: TAKE 1CAPS DAILY FOR 7 DAYS, THEN 2 CAPS DAILY MAY TAKE IN AM OR PMRefused By: CANDY SCHWARZ for Refusal: Dose needs clarificationReason for Refusal Comment: 20mg, 90+3 sent 02/12/23 documented in this encounter Plan of Treatment Upcoming Encounters Date Type Department Care Team (Late st Contact Info) Description 03/11/2023 11:00 AM EST Office Visit Gynecology/Obstetrics [facility] [address] [address] Adriana Jaimes CRNP [address] [place] [address] 03/14/2023 3:20 PM EST [address] [address] Millicent Kebede PA-C [address] [place] [address] Health Maintenance Due Date Last Done Comments [...] as of this encounter Visit Diagnoses Diagnosis Adjustment disorder with depressed mood documented in this encounter Care Teams Director Consumer Relationship Specialty Start Date End Date Louie Montilla DO [address] [place] [address] PCP - General Family Medicine 04/19/21 documented as of this encounter
--- OUTSIDE RECORDS SUMMARY | 2023-05-06 03:05 | External Medical Summary | Summary of Care ---
Author Name Unknown Organization [facility] Address [address] [facility] [facility] [address] Phone [phone] Care Team Providers Care Manager Night Name Role Phone Louie Montilla Segundo DO Primary Care Provider Encounter Details Date Type Department Care Team (Late st Contact Info) Description 02/12/2023 3:00 PM EST [facility] [address] [place] [address] Alex Pearce MD [address], [place] [phone] Adjustment disorder with depressed mood*; Depression with anxiety; Anxiety state; Panic attacks; Eczema, unspecified type Allergies Active Allergy Reactions Criticality Noted Date Comments Amoxicillin Hives 07/14/2013 documented as of this encounter (statuses as of 02/12/2023) Medications Medication Sig Dispensed Refills Start Date End Date Status COLACE 100 MG PO CAPS daily 0 Active Multiple Vitamins-Minera ls (MULTI-VITAMIN GUMMIES) chewable tablet Take 1 Tab by mouth daily. 0 Active Calcium 250 MG CAPS Take by mouth. 0 Active pantoprazole (PROTONIX) 20 MG TBEC Take 20 mg by mouth as needed for Indigestion. 0 Active ranitidine (ZANTAC) 150 MG Tablet Take 150 mg by mouth as needed. 0 Active nicotine (NICOTINE STEP 1) 21 MG/24HR PatchIndication s:Tobacco use disorder Place 1 Patch topically on the skin daily. 28 Patch 0 9 Active Additional Information Patient not taking.Reported on [...] or PM 50 Capsule 0 3 Active FLUoxetine HCl 20 MG Oral Capsule (PROzac)Indicat ions:Adjustment disorder with depressed mood Take 1 Capsule by mouth in the morning. 90 Capsule 3 3 Active busPIRone HCl 10 MG Oral Tablet (Buspar)Indicat ions:Anxiety state,Panic attacks 1 tab up to 3 times daily as needed for severe anxiety 40 Tablet 1 3 Active Hydrocortisone 2.5 % External CreamIndication s:Eczema, unspecified type Apply topically to affected area 3 times a day as needed for Other (ezcema). To affected area of face 30 g 5 3 Active FLUoxetine (PROZAC) 20 MG CapsuleIndicati ons:Depression with anxiety Take 1 Cap by mouth daily. 30 Cap 5 9 02/13/20 23 Discontinued(Re fill) busPIRone (BUSPAR) 5 MG TabletIndicatio ns:Anxiety state,Panic attacks One half to one whole tab by mouth up to 4 tiems a day for anxiety / panic attacks. 30 Tab 0 9 02/13/20 23 Discontinued documented as of this encounter (statuses as of 02/12/2023) Active Problems Problem Noted Date Diagnosed Date Iron deficiency 04/09/2018 S/P gastric bypass 05/26/2017 Iron deficiency anemia due to chronic blood loss 06/11/2016 Von Willebrand's disease 08/21/2007 Overview: Questionable dx of Von Willebrand's. Patient is unsure if she was dx with this or not. Action/Plan/Outcome: VW multifactor negative; Factor VIII antigen elevated on NOB labs. Being followed by [facility]; seen 11/05/07. To obtain previous records from childhood and f/u in 8 weeks. Referred to Heme, but no showed appointment. Dr. Huber will not see her again. Must make appointment with [facility] [place] if desires future heme consult. 01/08/08 -- Heme consult -- no evidence of disease. documented as of this encounter (statuses as of 02/12/2023) Resolved Problems Problem Noted Date Diagnosed Date [...] Overview: Anesthesia consult scheduled - 02/18/2014 2:30pm [facility], order in [employer] Paperwork [id number]/5/2014 Jessica Kimball, RN @36w3d: EFW 2500gm (25-50%); [...] once MA is active- Action/Plan/Outcome: Enrolled in [facility] Tobacco use disorder 08/21/2007 009 Overview: Smoking 6 cigs per day. Action/Plan/Outcome: Advise cessation every visit. documented as of this encounter (statuses as of 02/12/2023) Immunizations Name Administration Dates Next Due SEASONAL INFLUENZA, PF, 6 M & Above, IM , (FLULAVAL or FLUZONE) 12/28/2020 Seasonal Influenza, Split, IIV3, With Preserve, [...] on file documented as of this encounter Progress Notes * Alex Pearce MD - 02/12/2023 8:04 PM EST Patient location: HOME. I was in a hospital or clinic location. After connecting through televideo,patient was verified with two unique identifiers. Patient (or authorized legal passenger representative) was then informed that this was a Telemedicine visit and being conducted confidentially over secure lines. Methods to assure confidentiality were taken. Patient acknowledged consent and understanding of pr ivacy and security of the Telemedicine visit. The patient agreed to participate. Subjective: Nimco Weber is a 37 year old female. No chief complaint on file. HPI: 37-year-old for video visit primarily because she feels she needs something for anxiety/depression. She previously has used citalopram but thought that that increased her frequency of panic attacks. She has used BuSpar 5 mg in the past for panic attacks in felt that it was affective. But, she really does not want to go back on citalopram. In more distant past she used fluoxetine although she does not recall in I suspect she was not on it very long. She denies suicidal thought. She is having trouble sleeping. Has been using melatonin at probably double maximum dose recommended. Also has been using gtrx-jdu-[id number] sleep aids with Benadryl. Neither have been Um of much help. She has 3 children. She works at a dentist office. She and her estranged are going through a divorce. 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 This divorce has been extremely upsetting and difficult for her. She also asked something might be prescribed for her eczema. In recent weeks or months her eczema on her face has really become much worse. She is been using triamcinolone on the face occasionally Patient Active Problem List Diagnosis Code Von Willebrand's disease (HCC) D68.00 Iron deficiency anemia due to chronic blood loss D50.0 S/P gastric bypass Z98.84 Iron deficiency E61.1 Current Outpatient Medications Medication Sig Dispense Refill FLUoxetine HCl 10 MG Oral Capsule (PROzac) [...] 5 COLACE 100 MG PO CAPS daily Multiple Vitamins-Minerals (MULTI-VITAMIN GUMMIES) chewable tablet Take 1 Tab by mouth daily. (Patient not taking: Reported on 04/18/2021 ) Calcium 250 MG CAPS Take by mouth. (Patient not taking: Reported on 04/18/2021 ) pantoprazole (PROTONIX) 20 MG TBEC Take 20 mg by mouth as needed for Indigestion. (Patient not taking: Reported on 04/18/2021 ) ranitidine (ZANTAC) 150 MG Tablet Take 150 mg by mouth as needed. (Patient not taking: Reported on 04/18/2021 ) nicotine (NICOTINE STEP 1) 21 MG/24HR Patch Place 1 Patch topically on the skin daily. (Patient nottaking: Reported on 04/18/2021 ) 28 Patch 0 Esomeprazole Magnesium 20 MG Oral Capsule Delayed Release (NexIUM) Take by mouth 20 mg daily beforebreakfast . Aspirin 325 MG Oral Tablet Take by [...] patient's allergies indicates: Allergen Reactions Amoxicillin Hives Objective: There were no vitals taken for this visit. Physical Exam: MENTAL STATUS: no evidence of thought disorder, no delusional thought, no evidence of paranoia, thought is non-tangential. Mood-depressed as well as anxious. No evidence of suicidal intent ASSESSMENT/PLAN: Adjustment disorder with depressed mood (Primary) - FLUoxetine HCl 10 MG Oral Capsule (PROzac); 1 cap daily x 7 days then 2 caps daily. May take in AM or PM - FLUoxetine HCl 20 MG Oral Capsule (PROzac); Take 1 Capsule by mouth in the morning. Depression with anxiety-start fluoxetine as noted above Anxiety state - busPIRone HCl 10 MG Oral Tablet (Buspar); 1 tab up to 3 times daily as needed for severe anxiety Panic attacks - busPIRone HCl 10 MG Oral Tablet (Buspar); 1 tab up to 3 times daily as needed for severe anxiety Eczema, unspecified type-I told her that she needs to avoid the triamcinolone on the face except ifit is limited to 4 days in a row and then a long break. Instead try 2 and 0.5% hydrocortisone up to3 times a day - Hydrocortisone 2.5 % External Cream; Apply topically to affected area 3 times a day as needed forOther (ezcema). To affected area of face Check-out note: Video visit with [facility] 6 weeks Alex Pearce MD documented in this encounter Plan of Treatment Upcoming Encounters Date Type Department Care Team (Late st Contact Info) Description 03/11/2023 11:00 AM EST Office Visit [facility]necology/[facility]stetrics [facility] [address] [place] [place] [address] Adriana Jaimes CRNP [address] [place] [address] 03/14/2023 3:20 PM EST Office Visit [facility] [address] [place] [facility] [place] [address] Millicent Kebede PA-C [address] [place] [address] Health Maintenance Due Date Last Done Comments Hepatitis B (1 of 3 - 3-dose series) 1987 COVID-19 Vaccine (#1) 01/30/1988 Pneumococcal Vaccine: Pediatrics (0 to 5 Years) and At-Risk Patients (6 to 64 Years) (1 - PCV) 07/29/1993 Pap Smear 07/14/2016 07/14/2013, 0603/2011, 08/02/2010, Additional history exists Cervical Cancer Screening [...] Visit Diagnoses Diagnosis Adjustment disorder with depressed mood- Primary Depression with anxiety Dysthymic disorder Anxiety state Anxiety state, unspecified Panic attacks Panic disorder without agoraphobia Eczema, unspecified type documented in this encounter Care Teams Manager Night Relationship Specialty Start Date End Date Louie Montilla DO [address] [place] [address] PCP - General Family Medicine 04/19/21 documented as of this encounter
[2023-05-06 06:31] LABS: Basophils # (auto) 0.02 K/uL (0.00-0.20); Basophils % (auto) 0.4 %; Eosinophils # (auto) 0.08 K/uL (0.00-0.50); Eosinophils % (auto) 1.6 %; Hematocrit (blood only) 39.9 % (37.0-47.0); Hemoglobin 13.4 g/dl (12.0-16.0); Immature Granulocytes # (auto) 0.03 K/uL (0.01-0.20); Immature Granulocytes % (auto) 0.6 %; Lymphocytes # (auto) 1.28 K/uL (1.20-3.40); Mean Corpuscular Hemoglobin 32.1 pg (25.0-34.0); Mean Corpuscular Hgb Conc 33.6 g/dL (32.0-36.0); Mean Corpuscular Volume 95.7 fL (80.0-100.0); Mean Platelet Volume 8.8 fL (9.4-12.4); Monocytes # (auto) 0.42 K/uL (0.11-0.59); Monocytes % (auto) 8.2 %; Neutrophils # (auto) 3.29 K/uL (1.40-6.50); Neutrophils % (auto) 64.2 %; Platelet Count 215 K/uL (130-400); RDW Coefficient of Variation 12.7 % (11.5-14.5); RDW Standard Deviation 43.8 fL (36.4-46.3); Red Blood Count 4.17 M/uL (4.20-5.40); White Blood Count 5.12 K/ul (4.8-10.8)
[2023-05-06 06:46] LABS: Albumin Globulin Ratio 1.9 (0.9-2); Albumin Level 3.4 gm/dl (3.4-5.0); BUN Creatinine Ratio 17.8 (10-20); Bilirubin,Total 0.6 mg/dl (0.2-1.0); Calcium 8.3 mg/dl (8.6-10.3); Creatinine Clr Calc Pharmacy 103.2 ml/min; Est GFR (African American) 123.7 ml/min; Est GFR (Non-African American) 106.7 ml/min; Globulin 1.8 gm/dl (2.5-4.0); Magnesium 1.9 mg/dl (1.7-2.4); Potassium 4.1 mmol/L (3.5-5.1); Total Protein 5.2 gm/dl (6.0-8.3)
[2023-05-06] MEDS: FLUoxetine HCL 20 MG CAP PO SCH (08:20)
[2023-05-06] MEDS: THIAMINE HCL 100 MG TAB PO SCH (08:21)
[2023-05-06] MEDS: FOLIC ACID 1 MG TAB PO SCH (08:21)
[2023-05-06] MEDS: NICOTINE 21 MG/24 HR TDSY TD SCH (08:22)
[2023-05-06 12:35] LABS: Appearance Urine Clear (Clear); Bacteria Urine Automated Negative (Negative); Bilirubin Urine Negative (Negative); Blood Urine 1+ (Negative); Cast Urine Automated 0 /lpf (0-5); Color Urine Yellow; Glucose Urine UA Negative (Negative); Ketones Urine Negative (Negative); Leukocyte Esterase Urine Negative (Negative); Nitrite Urine Negative (Negative); Protein Urine Negative (Negative); RBC Urine Automated 0-4 /hpf (0-4); Specific Gravity Urine 1.009 (1.000-1.030); Urobilinogen Urine Negative (Negative); WBC Urine Automated 0 /hpf (0-5); pH Urine 6.5 (4.5-7.5)
[2023-05-06] MEDS: HYDROCORTISONE 2.5% CR 30 GM TUBE EXT SCH (13:00)
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
[2023-05-06] MEDS: chlordiazePOXIDE HCl 25 MG CAP PO SCH (17:12)
[2023-05-06] MEDS: metroNIDAZOLE 0.75% TOPICAL GEL 45 GM TUBE TOP SCH (17:13)
--- NOTE | 2023-05-06 18:04 | Hospitalist Progress Note ---
Date of Service May 06, 2023 Assessment & Plan (1) Suicidal ideations: (2) Alcohol abuse: (3) Alcohol withdrawal: (4) History of gastric bypass: (5) Dehydration: (6) Elevated CK: (7) Folate deficiency: (8) Tobacco abuse: Plan Per admitting service This addendum: This is a 37-year-old female who has a significant past medical history of gastric bypass, GERD, asthma, tobacco abuse, alcohol abuse, marijuana use and depression with anxiety who presents to ED secondary to suicidal ideation and alcohol abuse. Alcohol withdrawal Alcohol abuse Dehydration Metabolic acidosis admit to PCU AWSS protocol prn IV lorazepam for active sx scheduled librium taper encourage alcohol cessation, interested in cessation daily thiamine, folate IVF NSS + 20meq KCL repeat CK, UA in a.m. 05/06 AWSS score 3 No signs of overt alcohol withdrawal syndrome Continue Librium taper, to finish on CK level normalized patient would like to be admitted directly to an alcohol rehab on discharge case management on board Resolved. Elevated CK does not meet criteria for rhabdo blood noted in urine repeat CK and urine in a.m. likely in setting of alcohol abuse --resolved No indication for inpatient psych treatment as per psych service Suicidal ideations Depression with anxiety pt on fluoxetine and buspar as OP admits to being compliant but with heavy alcohol use continue for now consult psych one to one with suicide precautions 05/06 No indication for inpatient psych treatment as per psych service Needs to follow-up closely with outpatient psychiatry Folate deficiency noted in OP lab work start on daily folate recommend f/u with PCP Hx of gastric bypass pt states previously received IM Vit b12 but hasn't in sometime B12 normal Tobacco abuse encourage cessation DVT ppx: encourage ambulation FULL CODE Disposition Discharge to acute alcohol rehab after completion of Librium protocol for alcohol withdrawal Admission and Anticipated Discharge Date Admission Date: May 05, 2023 Subjective Follow-up for alcohol withdrawal, suicidal ideation, etc. Seen with FELIZ Lewis at the bedside throughout whole encounter Patient seen resting in bed, comfortable, not in distress states she feels fine overall denies tremors, anxiety, confusion, hallucinations no chest pain, dyspnea, palpitations, dizziness No abdominal pain, nausea or vomiting mood is ok, no suicidal ideations Reports rash/ around her mouth, appears when she is stressed, eczema as per patient No other new symptoms Review of Systems Review of Systems: all noted and negative except for above Physical Exam Physical Exam: General- oriented x 3, not in distress, speaks in sentences with no effort or accessory muscle use Mouth-mild erythematous rash perioral region Eyes- anicteric Neck- no JVD Lungs- clear breath sounds bilaterally, no tremors Heart- normal rate, regular rhythm; no murmurs Abdomen- normal bowel sounds, nondistended, soft, nontender Extremities- no pretibial edema, no calf tenderness No tremors Neuro- alert, No tremorsoriented x 3; no gross focal neurologic deficits Skin- warm & dry Results & Data Results & Data Vital Signs (Past 12 Hours) Vital Signs Temp Pulse Pulse Pulse Resp BP BP 05/06/23 17:10 36.7 C 88 16 144/84 H 05/06/23 16:48 69 05/06/23 14:09 36.5 C 73 16 134/82 05/06/23 13:46 82 18 151/88 H 05/06/23 12:41 05/06/23 12:19 70 18 152/92 H 05/06/23 12:00 79 22 05/06/23 11:00 77 23 05/06/23 10:00 88 23 05/06/23 09:01 94 H 20 147/96 H 05/06/23 08:00 76 22 146/94 H 05/06/23 08:00 05/06/23 07:31 134/89 05/06/23 07:31 65 18 05/06/23 07:00 75 19 05/06/23 07:00 133/83 Pulse Ox Pulse Ox O2 Del Method O2 Del Method 05/06/23 17:10 99 Room Air 05/06/23 16:48 05/06/23 14:09 99 Room Air 05/06/23 13:46 98 Room Air 05/06/23 12:41 Room Air 05/06/23 12:19 100 Room Air 05/06/23 12:00 100 Room Air 05/06/23 11:00 100 Room Air 05/06/23 10:00 100 Room Air 05/06/23 09:01 100 Room Air 05/06/23 08:00 100 Room Air 05/06/23 08:00 97 Room Air 05/06/23 07:31 05/06/23 07:31 100 05/06/23 07:00 100 05/06/23 07:00 all noted and reviewed including below patient (3) Alcohol withdrawal Complication of substance-induced condition: uncomplicated Qualified Code(s): F10.930 - Alcohol use, unspecified with withdrawal, uncomplicated
[2023-05-07 14:57] LABS: Marijuana Quant, GCMS Urine 447 ng/mL (<5)
[2023-05-07] MEDS: chlordiazePOXIDE HCl 25 MG CAP PO SCH (16:08)
--- NOTE | 2023-05-07 16:25 | Psychiatric Progress Note ---
Date of Service May 07, 2023 Impression / Recommendations Impression This woman has been through quite a bit. She is under numerous stressors and has been out of control with her alcohol use. There have been times that she has been suicidal, but there are other times that she is aching about the future and becoming a dental hygienist. She also is very focused on being able to see her kids and influence their lives in a positive way. There is a strong family history of alcohol use. Because she has hit "rock bottom," this is a great opportunity to really get her some help and get her on the road towards getting better. 05/07/23: Patient seems to be comfortable and is doing well medically. She is still in alcohol detox. I am still concerned about her risk of suicide when she cannot give me a very clear answer of her suicidality. I think she is still high risk. We will continue to follow and see how things go over the next couple of days as she finishes up detox. (1) Severe alcohol use disorder: (2) Alcohol withdrawal: (3) Depressive disorder: (4) Anxiety disorder: Plan 1. Continue with alcohol detoxification. Continue with the folic acid and thiamine. She had not been eating for several days during this binge of drinking and so the thiamine is important. 2. The fluoxetine and buspirone could be continued, but they are not going to be much help until she is really sober for a month or longer. Being sober for more than 30 days will also allow us to determine if the alcoholism is the prime problem or the depression. 3. After a few days of detox, since her liver numbers look good, we should co nsider starting naltrexone 25 mg daily for 1 to 2 weeks, then 50 mg daily to help keep her sober. This might cause some nausea if we start this too soon, during the worst part of the detox. 4. As we approach the end of the detox, we can determine if we feel she is not safe and needs inpatient psychiatric hospitalization. She is very interested in alcohol rehab. 5. Psychiatry will continue to follow as she continues to her detoxification. 05/07/23: We will continue with her current level of observation and precautions. She will continue with her detox. We will still consider using medications to help with her depression and sobriety when she is done with her detox. We also still need to determine if she needs to be in a psychiatric hospital. If she were ready to leave the hospital today, I would transfer her to the psychiatric unit for safety, further evaluation, and treatment. Today I spent 39 minutes on the case. This included meeting with the patient, discussing the case with Dr. Lopez, discussing the case with the mental health nurse liaison, reviewing the chart, and documentation. Suicide Risk Level Suicide Risk Level: Moderate (q15 min suicide checks) Interval History Identifying Information Nimco is a 37-year-old female from [place] who presented with alcohol withdrawal and concerns that she possibly overdosed on buspirone while intoxicated and does not remember. She also had been talking about ending her life by suicide. Chief Complaint "I went on a binge of alcohol." Subjective Subjective Today I met with the patient, reviewed her chart, discussed her case with the mental health liaison nurse, and discussed the case with the attending physician. Nimco is in our hospital due to suicidal ideation and a severe overdose associated with heavy alcohol use and current alcohol detoxification. She says that she is doing well physically and tolerating the withdrawals well. She is tolerating the Librium without any problems. She is not in any pain. Her tremors have gone away. She did have a loose stool. She is denying any hallucinations or homicidal thoughts, but when I ask about suicidal thoughts she cannot give me a really good clear answer. She has been communicating with people on the phone and that is gone well. She says that she is trying to avoid people, but she is also making the phone calls. Physical Exam Psychiatric Patient was alert and cooperative. She was clean and better groomed. Eye contact was good. Speech was normal. Mood was somewhat better. Affect was brighter and she did not cry, but she also looked a little bit anxious. Thought process was logical and goal-directed. There was no evidence of any hallucinations or delusions. Patient was ambivalent about her suicidal thoughts, but denied homicidal thoughts. Memory and concentration were good. No abnormal movements were seen; no tremors. Gait was not evaluated. Insight and judgment are impaired. Vital Signs (Past 24 Hours) Last Vital Signs Temp 36.5 C 05/07/23 11:37 Pulse 77 05/07/23 11:37 Resp 17 05/07/23 11:37 BP 138/93 05/07/23 11:37 Pulse Ox 100 05/07/23 11:37 O2 Del Method Room Air 05/07/23 11:37 Results & Data ([facility]) Laboratory Results Laboratory Results - last 24 hr 05/05/23 12:11 U Marijuana THC Carboxy 447 H Drug Screen Comment SEE NOTE Current Inpatient Medications Current Inpatient Medications: Current Inpatient Medications Acetaminophen (Acetaminophen 325 Mg Tab) 650 mg PO Q4H PRN PRN Reason: Pain or Fever Stop: 06/04/23 16:25 Al Hydrox/Mg Hydrox/Simethicone (Aluminum/Magnesium Susp 30 Ml Udc) 15 ml PO Q4H PRN PRN Reason: Dyspepsia Stop: 06/04/23 16:25 Buspirone HCl (Buspirone 15 Mg Tab) 15 mg PO QID RUBEN Stop: 06/04/23 16:59 Last Admin: 05/07/23 16:11 Dose: 15 mg Chlordiazepoxide HCl (Chlordiazepoxide Hcl 25 Mg Cap) 25 mg PO Q8H RUBEN Stop: 05/08/23 09:01 Last Admin: 05/07/23 16:08 Dose: 25 mg Chlordiazepoxide HCl (Chlordiazepoxide Hcl 10 Mg Cap) 10 mg PO Q12H RUBEN Stop: 05/09/23 09:01 Fluoxetine HCl (Fluoxetine Hcl 20 Mg Cap) 40 mg PO DAILY RUBEN Stop: 06/05/23 08:59 Last Admin: 05/07/23 09:45 Dose: 40 mg Folic Acid (Folic Acid 1 Mg Tab) 1 mg PO QAM RUBEN Stop: 06/05/23 08:59 Last Admin: 05/07/23 09:45 Dose: 1 mg Hydrocortisone (Hydrocortisone 2.5% Cr 30 Gm Tube) 1 appln EXT BID RUBEN Stop: 06/05/23 12:44 Last Admin: 05/07/23 09:03 Dose: 1 appln Lorazepam 1 mg/ Syringe 1 mls @ 2 mls/min IV UD PRN; Protocol PRN Reason: EtOH Withdrawal AWSS Score 6,7 Stop: 06/04/23 14:56 Lorazepam 2 mg/ Syringe 2 mls @ 2 mls/min IV UD PRN; Protocol PRN Reason: EtOH Withdrawal AWSS Score 8,9 Stop: 06/04/23 14:56 Lorazepam 3 mg/ Syringe 3 mls @ 2 mls/min IV ONCE PRN; Protocol PRN Reason: EtOH Withdrawal AWSS Score 10+ Magnesium Hydroxide (Magnesium Hydroxide Susp 30 Ml Udc) 30 ml PO Q12H PRN PRN Reason: Constipation Stop: 06/04/23 16:25 Metronidazole (Metronidazole 0.75% Topical Gel 45 Gm Tube) 1 appln TOP BID PENDING SALE TO [facility] Stop: 05/16/23 13:04 Last Admin: 05/07/23 09:03 Dose: 1 appln Miscellaneous (Remove Nicoderm Patch) 1 each N/A DAILY@0859 PENDING SALE TO [facility] Stop: 06/05/23 08:58 Last Admin: 05/07/23 09:03 Dose: 1 each Nicotine (Nicotine 21 Mg/24 Hr Tdsy) 21 mg TD QAM PENDING SALE TO [facility] Stop: 06/05/23 08:59 Last Admin: 05/07/23 09:45 Dose: 21 mg Ondansetron HCl (Ondansetron Inj 2 Mg/Ml 2 Ml Vial) 4 mg IV Q6H PRN PRN Reason: Nausea Stop: 06/04/23 16:25 Polyethylene Glycol (Polyethylene (Miralax) 17 Gm Pack) 17 gm PO DAILY PRN PRN Reason: Constipation Stop: 06/04/23 16:25 Thiamine HCl (Thiamine Hcl 100 Mg Tab) 100 mg PO QAM PENDING SALE TO [facility] Stop: 06/05/23 08:59 Last Admin: 05/07/23 09:45 Dose: 100 mg (2) Alcohol withdrawal Complication of substance-induced condition: uncomplicated Qualified Code(s): F10.930 - Alcohol use, unspecified with withdrawal, uncomplicated
--- NOTE | 2023-05-07 17:15 | Hospitalist Progress Note ---
Date of Service May 07, 2023 Assessment & Plan (1) Suicidal ideations: (2) Alcohol abuse: (3) Alcohol withdrawal: (4) History of gastric bypass: (5) Dehydration: (6) Elevated CK: (7) Folate deficiency: Plan This is a 37-year-old female who has a significant past medical history of gastric bypass, GERD, asthma, tobacco abuse, alcohol abuse, marijuana use and depression with anxiety who presents to ED secondary to suicidal ideation and alcohol abuse. Alcohol withdrawal Alcohol abuse Dehydration Metabolic acidosis Patient presented to the ED with concern of alcohol withdrawal and suicidal ideation AWSS protocol prn IV lorazepam for active sx scheduled librium taper encourage alcohol cessation, interested in cessation daily thiamine, folate Suicidal ideations Depression with anxiety pt on fluoxetine and buspar as OP admits to being compliant but with heavy alcohol use continue for now one to one with suicide precautions Psychiatric on board; recommend continue level of observation and precautions. After patient undergoes detoxification; might be considered for inpatient psych. Folate deficiency noted in OP lab work start on daily folate recommend f/u with PCP Hx of gastric bypass pt states previously received IM Vit b12 but hasn't in sometime B12 normal Tobacco abuse encourage cessation DVT ppx: encourage ambulation FULL CODE Please note the above document was generated using voice recognition software. It may contain grammatical, syntax or spelling errors. Any formal questions or concerns about the content, text or information contained within the body of this dictation should be directly addressed to the provider for clarification Admission and Anticipated Discharge Date Admission Date: May 05, 2023 Subjective Patient seen and examined at bedside. She is comfortable; denies any tremors, hallucination or agitation. Review of Systems Review of Systems: All systems reviewed & are unremarkable except as noted in Subjective Physical Exam Physical Exam: General- oriented x 3, not in distress, speaks in sentences with no effort or accessory muscle use Mouth-mild erythematous rash perioral region Eyes- anicteric Neck- no JVD Lungs- clear breath sounds bilaterally, no tremors Heart- normal rate, regular rhythm; no murmurs Abdomen- normal bowel sounds, nondistended, soft, nontender Extremities- no pretibial edema, no calf tenderness No tremors Neuro- alert, No tremorsoriented x 3; no gross focal neurologic deficits Skin- warm & dry Results & Data Results & Data Vital Signs (Past 12 Hours) Vital Signs Temp Pulse Pulse Resp BP Pulse Ox O2 Del Method 05/07/23 16:53 36.8 C 68 18 149/90 H 99 Room Air 05/07/23 11:37 36.5 C 77 17 138/93 100 Room Air 05/07/23 08:17 36.7 C 71 16 133/83 99 Room Air 05/07/23 08:00 65 05/07/23 08:00 O2 Del Method 05/07/23 16:53 05/07/23 11:37 05/07/23 08:17 05/07/23 08:00 05/07/23 08:00 Room Air (3) Alcohol withdrawal Complication of substance-induced condition: uncomplicated Qualified Code(s): F10.930 - Alcohol use, unspecified with withdrawal, uncomplicated
[2023-05-08 06:24] LABS: Basophils # (auto) 0.02 K/uL (0.00-0.20); Basophils % (auto) 0.4 %; Eosinophils # (auto) 0.11 K/uL (0.00-0.50); Hematocrit (blood only) 38.8 % (37.0-47.0); Hemoglobin 13.3 g/dl (12.0-16.0); Immature Granulocytes # (auto) 0.04 K/uL (0.01-0.20); Immature Granulocytes % (auto) 0.7 %; Lymphocytes # (auto) 1.49 K/uL (1.20-3.40); Mean Corpuscular Hemoglobin 32.8 pg (25.0-34.0); Mean Corpuscular Hgb Conc 34.3 g/dL (32.0-36.0); Mean Corpuscular Volume 95.6 fL (80.0-100.0); Mean Platelet Volume 9.5 fL (9.4-12.4); Monocytes # (auto) 0.48 K/uL (0.11-0.59); Monocytes % (auto) 8.7 %; Neutrophils # (auto) 3.37 K/uL (1.40-6.50); Neutrophils % (auto) 61.2 %; Platelet Count 180 K/uL (130-400); RDW Coefficient of Variation 12.9 % (11.5-14.5); RDW Standard Deviation 44.8 fL (36.4-46.3); Red Blood Count 4.06 M/uL (4.20-5.40); White Blood Count 5.51 K/ul (4.8-10.8)
[2023-05-08 06:33] LABS: BUN Creatinine Ratio 12.2 (10-20); Calcium 8.9 mg/dl (8.6-10.3); Creatinine Clr Calc Pharmacy 91.8 ml/min; Est GFR (African American) 107.5 ml/min; Est GFR (Non-African American) 92.7 ml/min; Potassium 4.2 mmol/L (3.5-5.1)
--- NOTE | 2023-05-08 13:22 | Discharge Summary ---
Date of Service May 08, 2023 Admission HPI Per Admitting Provider This is a 37-year-old female who has a significant past medical history of gastric bypass, GERD, asthma, tobacco abuse, alcohol abuse, marijuana use and depression with anxiety who presents to ED secondary to suicidal ideation and alcohol abuse. She states she has been having difficult time for the last year. She has been going through a divorce and just lost her job 2 weeks ago. She states she has had [facility] called on her 6 times and has lost her children due to her making false claims regarding her alcohol use. She does admit to alcohol abuse. She states typically she drinks 324 ounce cans of truly a day, but most recently has been drinking a gallon of Greg Hunter. She states her last drink was this morning. She states [facility] was last called on her 4 days ago and she tried to abstain from alcohol. When she did this she had significant night sweating and palpitations. She denies any seizure-like activity or tremors. She states a few days ago she was drunk and when she woke up her pill bottle of BuSpar was on the floor, and some pills were scattered. She is unsure if she took some. She denies any fever, chills, sweats, recent illness, shortness of breath, nausea, vomiting, abdominal pain, change in bowel or urinary habits. She states she has not been eating and drinking well as she is been mostly on a, "alcohol diet." She states she has a lot going on in her life and is having a difficult time with at all. In ED patient was hypertensive and tachycardic. She did receive a banana bag as well as 2 doses of 5 mg of IV diazepam. This did help. She had a CBC and CMP which revealed dehydration with elevated H&H, metabolic acidosis and anion gap at 12 and elevated total CK at 197. Her drug screen was positive for marijuana. Head CT was negative for any acute intracranial hemorrhage. Admission Exam Per Admitting Provider Gen: WD/WN, NAD, A&O x3, appears anxious HEENT: Normocephalic, atraumatic, conjunctivae moist, sclerae anicteric, mucous membranes dry. Lung: Clear to Auscultation bilaterally, no wheezes/rales/rhonchi Heart: tachycardic rate, reg rhythm, normal s1/s2 Abdomen: nondistended, not ttp, +BS Extremities: No edema Skin: Warm, no rash, negative turgor. Principal Diagnosis Alcohol use disorder Alcohol withdrawal Discharge Exam General- oriented x 3, not in distress, speaks in sentences with no effort or accessory muscle use Eyes- anicteric Neck- no JVD Lungs- clear breath sounds bilaterally, no tremors Heart- normal rate, regular rhythm; no murmurs Abdomen- normal bowel sounds, nondistended, soft, nontender Extremities- no pretibial edema, no calf tenderness No tremors Neuro- alert, No tremorsoriented x 3; no gross focal neurologic deficits Skin- warm & dry Discharge Data Allergies Allergy/AdvReac Type Severity Reaction Status Date / Time azithromycin Allergy Intermediate Hives Verified 07/19/22 09:57 [place] NSAIDS (Non-Steroidal Allergy Unknown HAD Verified 07/19/22 09:57 Anti-Inflamma GASTRIC BYPASS Penicillins Allergy Unknown RASH Verified 07/19/22 09:57 Consultations 05/05/23 14:46 ED Decision to Admit Stat 05/05/23 15:40 Consult Psychiatry Routine Ordered Studies 05/05/23 12:18 CT abd pelvis wo con Stat CT cervical spine wo con Stat CT chest diagnostic wo con Stat CT head/brain wo con Stat Hospital Course (1) Suicidal ideations: (2) Alcohol abuse: (3) Alcohol withdrawal: (4) History of gastric bypass: (5) Dehydration: (6) Elevated CK: (7) Folate deficiency: Plan This is a 37-year-old female who has a significant past medical history of gastric bypass, GERD, asthma, tobacco abuse, alcohol abuse, marijuana use and depression with anxiety who presented to ED secondary to suicidal ideation and alcohol abuse. She was treated for following condition during the hospitalization Alcohol withdrawal Alcohol use disorder Patient presented to the ED with concern of alcohol withdrawal and suicidal ideation During the hospitalization, patient was placed on alcohol withdrawal protocol. She was started on Ativan as well as tapering dose of Librium. At the time of the discharge, patient had no symptoms of alcohol withdrawal. Patient was discharged to rehab Suicidal ideations Depression with anxiety pt on fluoxetine and buspar as OP Evaluated by psychiatry during the hospitalization; recommended to continue current meds. Patient was cleared to go to rehab by psychiatry at the time of the discharge. Please note the above document was generated using voice recognition software. It may contain grammatical, syntax or spelling errors. Any formal questions or concerns about the content, text or information contained within the body of this dictation should be directly addressed to the provider for clarification Total Time Total Time Spent Total Time Spent (In Minutes): 35 Total Time Includes: Examination of the Patient, Discharge Planning, Medication Reconciliation, Communication With Other Providers and Other Discharge Plan Discharge Items Patient Disposition: Drug & Alcohol Rehab Reason For Visit: SUICIDAL IDEATION, ALCOHOL WITHDRAWAL Discharge Diagnosis: Alcohol use disorder Alcohol withdrawal Activity: Resume your previous activity Non-emergency contact: Primary Care Provider Call non-emergency contact if: you have any medication questions and your symptoms worsen Follow-up/Referrals: Millicent Kebede, RIMA [Primary Care Provider] - Diet: Regular Addtl Attending Provider Instructions: You were admitted to the hospital due to alcohol use disorder and alcohol withdrawal. You underwent detox during the hospitalization. Please continue alcohol rehabilitation at the rehab. Pending Studies at Discharge: No Stand-Alone Forms: My [facility] Skilled Items Patient informed of condition?: No DNR: Yes Discharge Level of Care: Skilled Communicable Disease: No Discharge Prognosis: Stable Lines: None Urinary Catheter: No Medications and DC Order Prescriptions: New thiamine HCl (vitamin B1) 100 mg Tablet 100 mg PO QAM Qty: 30 0RF pantoprazole [Protonix] 40 mg tablet,delayed release (DR/EC) 40 mg PO DAILY 28 Days Qty: 28 0RF Continued fluoxetine 40 mg capsule 40 mg PO DAILY buspirone 15 mg tablet 15 mg PO QID Discharge Orders: Discharge Order (Routine); Ordered 05/08/23 Ordered By: Adi Cuellar Admission Data Admit Date/Time: 05/05/23 14:57 Attending Provider: Adi Cuellar Admit Provider: Juventino Lopez Primary Care Provider: Millicent Kebede Other Providers: Juventino Lopez; Belkis Gresham; Dari Elizabeth; Tylor Mendoza; Alex Villarreal; Jareth Ziegler Jr
--- NOTE | 2023-05-08 13:26 | Psychiatric Progress Note ---
Date of Service May 08, 2023 Impression / Recommendations Impression This woman has been through quite a bit. She is under numerous stressors and has been out of control with her alcohol use. There have been times that she has been suicidal, but there are other times that she is aching about the future and becoming a dental hygienist. She also is very focused on being able to see her kids and influence their lives in a positive way. There is a strong family history of alcohol use. Because she has hit "rock bottom," this is a great opportunity to really get her some help and get her on the road towards getting better. 05/07/23: Patient seems to be comfortable and is doing well medically. She is still in alcohol detox. I am still concerned about her risk of suicide when she cannot give me a very clear answer of her suicidality. I think she is still high risk. We will continue to follow and see how things go over the next couple of days as she finishes up detox. 05/08/23: Patient is doing well. I do not think she needs psychiatric hospitalization at this time. She has good support from family. (1) Severe alcohol use disorder: (2) Alcohol withdrawal: (3) Depressive disorder: (4) Anxiety disorder: Plan 1. Continue with alcohol detoxification. Continue with the folic acid and thiamine. She had not been eating for several days during this binge of drinking and so the thiamine is important. 2. The fluoxetine and buspirone could be continued, but they are not going to be much help until she is really sober for a month or longer. Being sober for more than 30 days will also allow us to determine if the alcoholism is the prime problem or the depression. 3. After a few days of detox, since her liver numbers look good, we should consider starting naltrexone 25 mg daily for 1 to 2 weeks, then 50 mg daily to help keep her sober. This might cause some nausea if we start this too soon, during the worst part of the detox. 4. As we approach the end of the detox, we can determine if we feel she is not safe and needs inpatient psychiatric hospitalization. She is very interested in alcohol rehab. 5. Psychiatry will continue to follow as she continues to her detoxification. 05/07/23: We will continue with her current level of observation and precautions. She will continue with her detox. We will still consider using medications to help with her depression and sobriety when she is done with her detox. We also still need to determine if she needs to be in a psychiatric hospital. If she were ready to leave the hospital today, I would transfer her to the psychiatric unit for safety, further evaluation, and treatment. 05/08/23: Patient will be discharging to rehab today. Sometime in the next few weeks it might be worthwhile to consider trying an antidepressant, and possibly naltrexone. Today I spent 37 minutes on the case. This included meeting with the patient, discussing the case with the attending, discussing the case with the mental health nurse liaison, reviewing the chart, and documentation. Suicide Risk Level Suicide Risk Level: Low (q15 min observation checks) Interval History Identifying Information Nimco is a 37-year-old female from [place] who presented with alcohol withdrawal and concerns that she possibly overdosed on buspirone while intoxicated and does not remember. She also had been talking about ending her life by suicide. Chief Complaint "I went on a binge of alcohol." Subjective Subjective Today I met with the patient, reviewed the chart, discussed the case with the nurse, discussed the case with the mental health liaison nurse, and discussed the case with the attending physician. Nimco is in our hospital due to suicidal ideation and an overdose of medications associated with heavy alcohol use and current alcohol detoxification. She has been recovering well and is due to finish her alcohol detox this evening. She found a place to stay for rehab at [facility] and has a bed for Friday. We are looking into the possibility of getting her there on Friday. She has been still having some sweats, but no nausea, vomiting, or tremors. She is having some loose stools. She denies cravings. Appetite has been increased and she is eating much better. Sleep has been fine. She feels like things are really not different but she does have much more motivation to get better now. It sounds like her sister, mother, and father have started really helping and she feels like she has more purpose and hope because of that. She denies suicidal ideation or homicidal thoughts. Incidentally, her mother had a gastric bypass yesterday. She is recovering well. The patient has been communicating with friends and family as well. She did mention that she is having some epigastric burning but no reflux and was wondering if she can get an antacid or something like that. Physical Exam Psychiatric Patient was alert and cooperative. She was clean and well groomed. Eye contact was good. Speech was normal. Mood was improved. Affect was bright. Thought process was logical and goal-directed. There was no evidence of any hallucinations or delusions. She denied suicidal or homicidal thoughts. Memory and concentration were good. No abnormal movements were seen; no tremors. Gait was not evaluated. Insight and judgment are impaired. I found out later in the day that she is going to rehab today. Vital Signs (Past 24 Hours) Last Vital Signs Temp 36.7 C 05/08/23 12:25 Pulse 68 05/08/23 12:25 Resp 18 05/08/23 12:25 BP 120/80 05/08/23 12:25 Pulse Ox 100 05/08/23 12:25 O2 Del Method Room Air 05/08/23 10:57 Results & Data ([facility]) Laboratory Results Laboratory Results - last 24 hr 05/05/23 05/08/23 12:11 05:44 WBC 5.51 RBC 4.06 L Hgb 13.3 Hct 38.8 MCV 95.6 MCH 32.8 MCHC 34.3 RDW Std Deviation 44.8 RDW Coeff of Karine 12.9 Plt Count 180 MPV 9.5 Immature Gran % (Auto) 0.7 Neut % (Auto) 61.2 Lymph % (Auto) 27.0 Isabela % (Auto) 8.7 Eos % (Auto) 2.0 Baso % (Auto) 0.4 Neut # (Auto) 3.37 Lymph # (Auto) 1.49 Isabela # (Auto) 0.48 Eos # (Auto) 0.11 Baso # (Auto) 0.02 Immature Gran # (Auto) 0.04 Sodium 138 Potassium 4.2 Chloride 106 Carbon Dioxide 28 Anion Gap 4 BUN 10 Creatinine 0.82 Est Cr Clr Drug Dosing 91.8 Est GFR ( Amer) 107.5 Est GFR (Non-Af Amer) 92.7 BUN/Creatinine Ratio 12.2 Glucose 88 Calcium 8.9 U Marijuana THC Carboxy 447 H Drug Screen Comment SEE NOTE Current Inpatient Medications Current Inpatient Medications: Current Inpatient Medications Acetaminophen (Acetaminophen 325 Mg Tab) 650 mg PO Q4H PRN PRN Reason: Pain or Fever Stop: 06/04/23 16:25 Al Hydrox/Mg Hydrox/Simethicone (Aluminum/Magnesium Susp 30 Ml Udc) 15 ml PO Q4H PRN PRN Reason: Dyspepsia Stop: 06/04/23 16:25 Buspirone HCl (Buspirone 15 Mg Tab) 15 mg PO QID [facility] Stop: 06/04/23 16:59 Last Admin: 05/08/23 12:30 Dose: 15 mg Fluoxetine HCl (Fluoxetine Hcl 20 Mg Cap) 40 mg PO DAILY [facility] Stop: 06/05/23 08:59 Last Admin: 05/08/23 08:19 Dose: 40 mg Folic Acid (Folic Acid 1 Mg Tab) 1 mg PO QAM [facility] Stop: 06/05/23 08:59 Last Admin: 05/08/23 08:19 Dose: 1 mg Hydrocortisone (Hydrocortisone 2.5% Cr 30 Gm Tube) 1 appln EXT BID [facility] Stop: 06/05/23 12:44 Last Admin: 05/08/23 08:20 Dose: 1 appln Lorazepam 1 mg/ Syringe 1 mls @ 2 mls/min IV UD PRN; Protocol PRN Reason: EtOH Withdrawal AWSS Score 6,7 Stop: 06/04/23 14:56 Lorazepam 2 mg/ Syringe 2 mls @ 2 mls/min IV UD PRN; Protocol PRN Reason: EtOH Withdrawal AWSS Score 8,9 Stop: 06/04/23 14:56 Lorazepam 3 mg/ Syringe 3 mls @ 2 mls/min IV ONCE PRN; Protocol PRN Reason: EtOH Withdrawal AWSS Score 10+ Magnesium Hydroxide (Magnesium Hydroxide Susp 30 Ml Udc) 30 ml PO Q12H PRN PRN Reason: Constipation Stop: 06/04/23 16:25 Metronidazole (Metronidazole 0.75% Topical Gel 45 Gm Tube) 1 appln TOP BID [facility] Stop: 05/16/23 13:04 Last Admin: 05/08/23 08:19 Dose: 1 appln Miscellaneous (Remove Nicoderm Patch) 1 each N/A DAILY@0859 [facility] Stop: 06/05/23 08:58 Last Admin: 05/08/23 08:20 Dose: 1 each Nicotine (Nicotine 21 Mg/24 Hr Tdsy) 21 mg TD QAM [facility] Stop: 06/05/23 08:59 Last Admin: 05/08/23 08:19 Dose: 21 mg Ondansetron HCl (Ondansetron Inj 2 Mg/Ml 2 Ml Vial) 4 mg IV Q6H PRN PRN Reason: Nausea Stop: 06/04/23 16:25 Polyethylene Glycol (Polyethylene (Miralax) 17 Gm Pack) 17 gm PO DAILY PRN PRN Reason: Constipation Stop: 06/04/23 16:25 Thiamine HCl (Thiamine Hcl 100 Mg Tab) 100 mg PO QAM [facility] Stop: 06/05/23 08:59 Last Admin: 05/08/23 08:19 Dose: 100 mg (2) Alcohol withdrawal Complication of substance-induced condition: uncomplicated Qualified Code(s): F10.930 - Alcohol use, unspecified with withdrawal, uncomplicated
== END 2023-05-08 15:07 | disposition alcohol treatment (31) | DRG 897 ==
LOC: ED 11:49 → SUATTDRO 14:57 → EDINP 14:57 → 4W 16:26